=== PATIENT | female | born 1970 | race African-American/Black ===

== ENCOUNTER → 2018-01-16 | Outpatient (CLI) | payer OTHER ==
--- NOTE | 2018-01-16 13:43 | RADIOLOGY REPORT (SQ) ---
EXAM DESCRIPTION: CT CHEST WITH COMPLETED DATE/TIME: 01/16/2018 1:28 pm REASON FOR STUDY: COLON CA C18.2 MALIGNANT NEOPLASM OF ASCENDING COLON COMPARISON: None. TECHNIQUE: CT scan of the chest performed using helical scanning technique with dynamic intravenous contrast injection. Images reviewed with lung, soft tissue and bone windows. Reconstructed coronal and sagittal MPR and MIP images reviewed. All images stored on PACS. All CT scanners at this facility use dose modulation, iterative reconstruction, and/or weight based d osing when appropriate to reduce radiation dose to as low as reasonably achievable (ALARA). [facility]: Dose Right [facility]: CareDose [facility]: Dose Right [facility]: Teradose 4D [facility]: Digital Shadows CONTRAST TYPE AND DOSE: contrast/concentration: Isovue 350.00 mg/ml; Total Contrast Delivered: 80.0 ml; Total Saline Delivered: 55.0 ml RENAL FUNCTION: Creatinine 0.7 RADIATION DOSE: CT Rad equipment meets quality standard of care and radiation dose reduction techniq ues were employed. CTDIvol: 7.2 mGy. DLP: 253 mGy-cm. . LIMITATIONS: None. FINDINGS: LUNGS AND PLEURA: No opacities, nodules, masses. No pneumothorax. No effusions. HILAR AND MEDIASTINAL STRUCTURES: No identified masses or abnormal nodes. HEART AND VASCULAR STRUCTURES: No aneurysm or dissection. No central pulmonary emboli. No pericardi al effusion. HARDWARE: None in the chest. UPPER ABDOMEN: Upper pole left renal cyst measuring just under 6 cm. No worrisome findings. THYROID AND OTHER SOFT TISSUES: No masses. No adenopathy. BONES: No significant finding. OTHER: No other significant finding. IMPRESSION: No acute or suspicious thoracic abnormality. TECHNICAL DOCUMENTATION: JOB ID: [id number] Quality ID # [id number]: Final reports with documentation of one or more dose reduction techniques (e.g., Au tomated exposure control, adjustment of the mA and/or kV according to patient size, use of iterative reconstruction technique) 2010 [employer]- All Rights Reserved Reading location - IP/workstation name: [email or web address]
== END ==
LOC: RAD 13:26
PROVIDERS: ATTEND Internal Medicine Hematology & Oncology
DX: C18.2 Malignant neoplasm of ascending colon (principal)
CPT/HCPCS: 71260

== ENCOUNTER 2018-06-16 22:39 | Emergency (ER) | payer OTHER ==
--- NOTE | 2018-06-16 23:43 | ER Document Report ---
ED General - General Chief Complaint: Palpitations Stated Complaint: SHORTNESS OF BREATH Time Seen by Provider: 06/16/18 23:41 Primary Care Provider: CHRIS REEDER MD [Primary Care Provider] - Follow up as needed REJI ESTRADA MD [ACTIVE STAFF] - Follow up as needed (This is the number the refinery operator helper) Mode of Arrival: Ambulatory Information source: Patient Notes: This is a 47-year-old female with a history of colon cancer stage IIIb status post right hemicolectomy, currently undergoing chemotherapy (Xeloda & Oxaloplatinum) who presents to the emergency room with palpitations and heart racing. Patient states she was in [place] when she had the symptoms. She denies any significant shortness of breath. She denies any calf pain. She denies any chest pain. She denies any fever or chills. TRAVEL OUTSIDE OF THE [place] IN LAST 30 DAYS: No - HPI Onset: Yesterday Onset/Duration: Gradual Quality of pain: No pain Severity: None Pain Level: Denies Associated symptoms: denies: Chest pain, Fever, Shortness of breath Exacerbated by: Denies Relieved by: Denies Similar symptoms previously: No Recently seen / treated by doctor: Yes - Related Data Allergies/Adverse Reactions: Latex, Natural Rubber Allergy (Verified 06/16/18 23:10) shellfish derived Allergy (Verified 06/16/18 23:10) Past Medical History - General Information source: Patient - Social History Smoking Status: Never Smoker Cigarette use (# per day): No Chew tobacco use (# tins/day): No Frequency of alcohol use: None Drug Abuse: None Lives with: Family Family History: None Patient has suicidal ideation: No Patient has homicidal ideation: No - Past Medical History Cardiac Medical History: Reports: None Pulmonary Medical History: Reports: None EENT Medical History: Reports: None Neurological Medical History: Reports: None Endocrine Medical History: Reports: Hx Hypothyroidism, Other - Street of thyroid cancer status post thyroidectomy Renal/ Medical History: Reports: None. Denies: Hx Peritoneal Dialysis Malignancy Medical History: Reports: Hx Colorectal Cancer - Stage IIIb colon cancer GI Medical History: Reports: None Musculoskeletal Medical History: Reports None Skin Medical History: Reports None Psychiatric Medical History: Reports: None Traumatic Medical History: Reports: None Infectious Medical History: Reports: None Past Surgical History: Reports: Hx Abdominal Surgery - R hemicoloectomy, Hx Section - x3, Hx Cholecystectomy, Hx Gynecologic Surgery - UFE, Hx Thyroid Surgery - thyroidectomy Review of Systems - Review of Systems Constitutional: denies: Chills, Fever EENT: No symptoms reported Cardiovascular: Palpitations, Heart racing. denies: Chest pain, Orthopnea, Dyspnea, Syncope Respiratory: No symptoms reported Gastrointestinal: No symptoms reported Genitourinary: No symptoms reported Female Genitourinary: No symptoms reported Musculoskeletal: No symptoms reported Skin: No symptoms reported Hematologic/Lymphatic: No symptoms reported Neurological/Psychological: No symptoms reported Physical Exam - Vital signs Vitals: Temp Pulse Resp BP Pulse Ox 98.1 F 95 16 122/64 100 06/16/18 22:58 06/16/18 22:58 06/16/18 22:58 06/16/18 22:58 06/16/18 22:58 Notes: Physical exam: GENERAL: Vision is alert and oriented x3, no acute distress HEAD: Atraumatic, normocephalic. EYES: Pupils equal round and reactive to light, extraocular movements intact, sclera anicteric, conjunctiva are normal. ENT: TMs normal, nares patent, oropharynx clear without exudates. Moist mucous membranes. NECK: Normal range of motion, supple without obvious mass or JVD. LUNGS: Breath sounds clear to auscultation bilaterally and equal. No wheezes rales or rhonchi. HEART: Regular rate and rhythm without murmurs, rubs or gallops. ABDOMEN: Soft, normoactive bowel sounds. No tenderness to palpation. No guarding, no rebound. No masses appreciated. EXTREMITIES: Normal range of motion, no pitting or edema. No clubbing or cyanosis. NEUROLOGICAL: Cranial nerves II through XII grossly intact. Normal speech, moving all extremities. PSYCH: Normal mood, normal affect. SKIN: Warm, Dry, normal turgor, no rashes or lesions noted. Course - Re-evaluation Re-evalutation: 06/17/18 01:[address] Zepeda: Plan is to leave the levothyroxine dose the way it is, patient will follow-up with Dr. Swift. - Vital Signs Vital signs: Temp Pulse Resp BP Pulse Ox 98.1 F 95 11 L 119/60 100 06/16/18 22:58 06/16/18 22:58 06/17/18 01:01 06/17/18 01:01 06/17/18 01:01 - Laboratory Result Diagrams: 06/16/18 23:57 06/16/18 23:57 Laboratory results interpreted by me: 06/16/18 06/16/18 06/16/18 23:57 23:57 23:57 WBC 3.7 L RBC 3.53 L Hgb 10.9 L Hct 33.7 L RDW 17.7 H Plt Count 110 L Seg Neuts % (Manual) 35 L Monocytes % (Manual) 22 H Abs Neuts (Manual) 1.3 L Glucose 111 H AST 55 H TSH 16.20 H - Diagnostic Test Radiology reviewed: Image reviewed, Reports reviewed - Chest x-ray shows no infiltrates - EKG Interpretation by Me Rate: Normal Rhythm: NSR - EKG shows normal sinus rhythm with a ventricular rate of 101, no acute ST-T wave changes Discharge - Discharge Clinical Impression: Palpitations Condition: Stable Disposition: HOME, SELF-CARE Instructions: Palpitations (Irregular or Rapid Heartrate) ([facility]) Additional Instructions: As we discussed, your chest x-ray looked good tonight. Your EKG also look good. Your electrolytes were in the normal range. I did discuss your white count and platelet count with Dr. Zepeda. I do want you to follow-up with Dr. Rangel. I left the number for with a refinery operator helper affiliated with the hospital (Dr. Estrada): If you continue to have palpitations, they sometimes will have you wear a monitor. Return to the emergency room for chest pain, shortness of breath or any worsening palpitations. Referrals: CHRIS REEDER MD [Primary Care Provider] - Follow up as needed REJI ESTRADA MD [ACTIVE STAFF] - Follow up as needed (This is the number the refinery operator helper)
[2018-06-17 00:10] LABS: HEMATOCRIT 33.7 % (36.0-47.0); HEMOGLOBIN 10.9 g/dL (12.0-15.5); MEAN CORPUSCULAR HEMOGLOBIN 30.9 pg (27.0-33.4); MEAN CORPUSCULAR HGB CONC 32.3 g/dL (32.0-36.0); MEAN CORPUSCULAR VOLUME 96 fl (80-97); PLATELET COUNT 110 10^3/uL (150-450); RED BLOOD COUNT 3.53 10^6/uL (3.72-5.28); RED CELL DISTRIBUTION WIDTH 17.7 % (11.5-14.0); WHITE BLOOD COUNT 3.7 10^3/uL (4.0-10.5)
[2018-06-17 00:25] LABS: ABSOLUTE LYMPHOCYTES# (MANUAL) 1.6 10^3/uL (0.5-4.7); ABSOLUTE MONOCYTES # (MANUAL) 0.8 10^3/uL (0.1-1.4); ABSOLUTE NEUTROPHILS# (MANUAL) 1.3 10^3/uL (1.7-8.2); BASOPHILS % (MANUAL) 0 % (0-2); EOSINOPHILS % (MANUAL) 1 % (0-6); LYMPHOCYTES % (MANUAL) 42 % (13-45); MONOCYTES % (MANUAL) 22 % (3-13); SEGMENTED NEUTROPHILS % (MAN) 35 % (42-78); TOTAL CELLS COUNTED 100
[2018-06-17 00:26] LABS: PLATELET CLUMPS PRESENT
[2018-06-17 00:28] LABS: ANISOCYTOSIS 1+; OVALOCYTES SLIGHT; TARGET CELLS SLIGHT; TEAR DROP CELLS SLIGHT
[2018-06-17 00:30] LABS: ALANINE AMINOTRANSFERASE 35 U/L (9-52); ALBUMIN 3.6 g/dL (3.5-5.0); ALKALINE PHOSPHATASE 93 U/L (38-126); ANION GAP 7 (5-19); ASPARTATE AMINO TRANSFERASE 55 U/L (14-36); BILIRUBIN,DIRECT 0.2 mg/dL (0.0-0.4); BILIRUBIN,TOTAL 0.9 mg/dL (0.2-1.3); BLOOD UREA NITROGEN 8 mg/dL (7-20); CALCIUM 9.5 mg/dL (8.4-10.2); CARBON DIOXIDE 30 mmol/L (22-30); CHLORIDE 107 mmol/L (98-107); GLUCOSE 111 mg/dL (75-110); POTASSIUM 3.6 mmol/L (3.6-5.0); SODIUM 143.9 mmol/L (137-145); TOTAL PROTEIN 6.8 g/dL (6.3-8.2)
--- NOTE | 2018-06-17 00:34 | RADIOLOGY REPORT (SQ) ---
EXAM DESCRIPTION: XR CHEST 1 VIEW COMPLETED DATE/TME: 06/16/2018 23:43 CLINICAL HISTORY: 47 years, Female, palpitations COMPARISON: None. NUMBER OF VIEWS: 1 TECHNIQUE: Portable chest LIMITATIONS: None. FINDINGS: Heart size normal. Left PICC catheter with the tip in the SVC. Lungs clear. No pneumothorax IMPRESSION: No acute cardiopulmonary process copyright 2010 [employer]- All Rights Reserved
[2018-06-17 00:44] LABS: FREE T3 3.12 pg/mL (2.77-5.27); FREE T4 (FREE THYROXINE) 0.87 ng/dL (0.78-2.19)
[2018-06-17 00:58] LABS: THYROID STIMULATING HORMONE 16.2 uIU/mL (0.47-4.68)
[2018-06-17 01:31] VITALS: BP 119/60
--- NOTE | 2018-06-17 23:09 | EKG REPORT ---
SEVERITY:- OTHERWISE NORMAL ECG - SINUS TACHYCARDIA : Confirmed by: Patsy Kitchen 17-Jun-2018 23:08:30
== END 2018-06-17 01:38 | disposition home or self-care (01) ==
LOC: ER 22:39
DX: R00.2 Palpitations (principal); C18.9 Malignant neoplasm of colon, unspecified; E89.0 Postprocedural hypothyroidism; Z79.899 Other long term (current) drug therapy; Z91.040 Latex allergy status
CPT/HCPCS: 36415; 71045; 80053; 83735; 84439; 84443; 84481; 85025; 93005; 93010; 99285

== ENCOUNTER → 2018-07-12 | Outpatient (CLI) | payer OTHER ==
--- NOTE | 2018-07-12 16:33 | RADIOLOGY REPORT (SQ) ---
EXAM DESCRIPTION: CT CHEST WITH COMPLETED DATE/TIME: 07/12/2018 3:09 pm REASON FOR STUDY: C18.2 MALIGNANT NEOPLASM OF ASCENDING COLON C18.2 MALIGNANT NEOPLASM OF ASCENDING COLON COMPARISON: None. TECHNIQUE: CT scan of the chest performed using helical scanning technique with dynamic intravenous contrast injection. Images reviewed with lung, soft tissue and bone windows. Reconstructed coronal and sagittal MPR and MIP images reviewed. All images stored on PACS. All CT scanners at this facility use dose modulation, iterative reconstruction, and/or weight based d osing when appropriate to reduce radiation dose to as low as reasonably achievable (ALARA). [facility]: Dose Right [facility]: CareDose [facility]: Dose Right [facility]: Teradose 4D [facility]: DanceTrippin CONTRAST TYPE AND DOSE: 60 mL Omnipaque 350- low osmolar. RENAL FUNCTION: BUN 7 creatinine 0.65 RADIATION DOSE: . LIMITATIONS: None. FINDINGS: LUNGS AND PLEURA: There is a 10 mm left pleural nodule on image 93 series 6. There appear s to be mild pleural/ parenchymal scarring in the right base posteriorly. HILAR AND MEDIASTINAL STRUCTURES: No identified masses or abnormal nodes. HEART AND VASCULAR STRUCTURES: No aneurysm or dissection. No central pulmonary emboli. No pericardi al effusion. HARDWARE: PICC on the left. UPPER ABDOMEN: See separate report of the CT of the abdomen. THYROID AND OTHER SOFT TISSUES: No masses. No adenopathy. BONES: No significant finding. OTHER: No other significant finding. IMPRESSION: Small left pleural nodule that was not present on prior study. No other significant fin dings in the thorax. TECHNICAL DOCUMENTATION: JOB ID: [id number] Quality ID # [id number]: Final reports with documentation of one or more dose reduction techniques (e.g., Au tomated exposure control, adjustment of the mA and/or kV according to patient size, use of iterative reconstruction technique) 2010 [employer]- All Rights Reserved Reading location - IP/workstation name: [email or web address]
--- NOTE | 2018-07-12 16:40 | RADIOLOGY REPORT (SQ) ---
EXAM DESCRIPTION: CT ABD/PELVIS WITH IV ORAL COMPLETED DATE/TIME: 07/12/2018 3:09 pm REASON FOR STUDY: C18.2 MALIGNANT NEOPLASM OF ASCENDING COLON C18.2 MALIGNANT NEOPLASM OF ASCENDING COLON COMPARISON: None. TECHNIQUE: CT scan of the abdomen and pelvis performed using helical scanning technique with dynamic intravenous contrast injection. c Oral contrast. Images reviewed with lung, soft tissue, and bone wi ndows. Reconstructed coronal and sagittal MPR images reviewed. Delayed images for evaluation of the u rinary system also acquired. All images stored on PACS. All CT scanners at this facility use dose modulation, iterative reconstruction, and/or weight based d osing when appropriate to reduce radiation dose to as low as reasonably achievable (ALARA). [facility]: Dose Right [facility]: CareDose [facility]: Dose Right [facility]: Teradose 4D [facility]: [employer]aps CONTRAST TYPE AND DOSE: contrast/concentration: Isovue 350.00 mg/ml; Total Contrast Delivered: 60.0 ml; Total Saline Delivered: 71.0 ml RENAL FUNCTION: BUN 7 creatinine 0.65 RADIATION DOSE: CT Rad equipment meets quality standard of care and radiation dose reduction techniq ues were employed. CTDIvol: 7.2 - 14.0 mGy. DLP: 1651 mGy-cm.. LIMITATIONS: None. FINDINGS: LOWER CHEST: No significant findings. No nodules or infiltrates. LIVER: Normal size. No masses. No dilated ducts. SPLEEN: Normal size. No focal lesions. PANCREAS: No masses. No significant calcifications. No adjacent inflammation or peripancreatic fluid collections. Pancreatic duct not dilated. GALLBLADDER: Surgically absent. ADRENAL GLANDS: No significant masses or asymmetry. RIGHT KIDNEY AND URETER: No solid masses. No significant calcifications. No hydronephrosis or hyd roureter. LEFT KIDNEY AND URETER: No solid masses. There is a 6 cm cyst. No significant calcifications. No hydronephrosis or hydroureter. AORTA AND VESSELS: No aneurysm. No dissection. Renal arteries, SMA, celiac without stenosis. RETROPERITONEUM: No retroperitoneal adenopathy, hemorrhage or masses. BOWEL AND PERITONEAL CAVITY: No masses or inflammatory changes. No free fluid or peritoneal masses. APPENDIX: Not identified. PELVIS: Calcified uterine fibroid. Urinary bladder is normal. ABDOMINAL WALL: No masses. No hernias. BONES: No significant or acute findings. OTHER: No other significant finding. IMPRESSION: There is no acute finding in the abdomen or pelvis. No evidence of metastatic disease. Calcified uterine fibroid. Left renal cyst. TECHNICAL DOCUMENTATION: JOB ID: [id number] Quality ID # [id number]: Final reports with documentation of one or more dose reduction techniques (e.g., Au tomated exposure control, adjustment of the mA and/or kV according to patient size, use of iterative reconstruction technique) 2010 [employer]- All Rights Reserved Reading location - IP/workstation name: [email or web address]
== END ==
LOC: RAD 14:29
PROVIDERS: ATTEND Internal Medicine Hematology & Oncology
DX: C18.2 Malignant neoplasm of ascending colon (principal); D25.9 Leiomyoma of uterus, unspecified; N28.1 Cyst of kidney, acquired
CPT/HCPCS: 71260; 74177

== ENCOUNTER → 2018-11-02 | Outpatient (CLI) | payer OTHER ==
--- NOTE | 2018-11-02 11:04 | RADIOLOGY REPORT (SQ) ---
EXAM DESCRIPTION: CT ABD/PELVIS WITH IV ORAL; CT CHEST WITH COMPLETED DATE/TIME: 11/02/2018 10:18 am REASON FOR STUDY: C18.2 MALIGNANT NEOPLASM OF ASCENDING COLON C18.2 MALIGNANT NEOPLASM OF ASCENDING COLON CONTRAST TYPE AND DOSE: contrast/concentration: Isovue 350.00 mg/ml; Total Contrast Delivered: 88.0 ml; Total Saline Delivered: 71.0 ml RENAL FUNCTION: None required. The patient is less than 50 years old. COMPARISON: 07/12/2018 TECHNIQUE: CT scan of the chest performed using helical scanning technique with dynamic intravenous contrast injection. Images reviewed with lung, soft tissue and bone windows. Reconstructed coronal a nd sagittal MPR images reviewed. All images stored on PACS. All CT scanners at this facility use dose modulation, iterative reconstruction, and/or weight based d osing when appropriate to reduce radiation dose to as low as reasonably achievable (ALARA). [facility]: Dose Right [facility]: CareDose [facility]: Dose Right [facility]: Teradose 4D [facility]: Smart [employer] RADIATION DOSE: CT Rad equipment meets quality standard of care and radiation dose reduction techniq ues were employed. CTDIvol: 5.1 - 8.8 mGy. DLP: 1099 mGy-cm. . LIMITATIONS: None. FINDINGS: AXILLAE: No adenopathy. CHEST WALL: No masses. No subcutaneous air. LUNGS: No nodules or masses. No pneumothorax. No infiltrates. Subpleural nodule previously describ ed is no longer present. PLEURA: No effusions. No calcifications. THYROID: No masses or significant asymmetry. HILAR AND MEDIASTINAL STRUCTURES: No identified masses or abnormal nodes. AORTA AND GREAT VESSELS: No aneurysm. No dissection. PULMONARY ARTERIES: No identified pulmonary emboli. Study not optimized for the pulmonary arteries. HEART: No pericardial effusion. HARDWARE AND LIFELINES: None. BONES: No significant finding. OTHER: No other significant finding. IMPRESSION: NORMAL CT OF THE CHEST WITH IV CONTRAST. COMPARISON: None. RADIATION DOSE: CT Rad equipment meets quality standard of care and radiation dose reduction techniq ues were employed. CTDIvol: 5.1 - 8.8 mGy. DLP: 1099 mGy-cm. mGy. TECHNIQUE: CT scan of the abdomen and pelvis performed with intravenous and oral contrast using emma don scanning technique with dynamic intravenous contrast injection. Images reviewed with lung, soft tissue and bone windows. Reconstructed coronal and sagittal MPR images reviewed. Delayed images for evaluation of the urinary system also acquired and evaluated. All images stored on PACS. All CT scanners at this facility use dose modulation, iterative reconstruction, and/or weight based d osing when appropriate to reduce radiation dose to as low as reasonably achievable (ALARA). [facility]: Dose Right [facility]: SureCare [facility]: Dose Right [facility]: Teradose 4D [facility]: [employer] FINDINGS: LIVER: Normal size. No masses. No dilated ducts. SPLEEN: Normal size. No focal lesions. PANCREAS: No masses. No significant calcifications. No adjacent inflammation or peripancreatic flui d collections. Pancreatic duct not dilated. GALLBLADDER: Surgically absent. ADRENAL GLANDS: No significant masses or asymmetry. RIGHT KIDNEY AND URETER: No solid masses. No significant calcifications. No hydronephrosis or hyd roureter. LEFT KIDNEY AND URETER: No solid masses. Stable large left renal cyst. No significant calcificatio ns. No hydronephrosis or hydroureter. AORTA AND VESSELS: No aneurysm. No dissection. Renal arteries, SMA, celiac without stenosis. RETROPERITONEUM: No retroperitoneal adenopathy, hemorrhage or masses. LARGE AND SMALL BOWEL: No dilatation. No masses. No wall thickening. APPENDIX: Not visualized. ABDOMINAL WALL: Small umbilical hernia containing omental fat only. PERITONEAL CAVITY: No free air. No free fluid. No peritoneal implants or masses. PELVIS: Calcified uterine fibroid is again noted. BONES: No significant or acute findings. OTHER: No other significant finding. IMPRESSION: No acute findings in the abdomen or pelvis. TECHNICAL DOCUMENTATION: JOB ID: [id number] Quality ID # [id number]: Final reports with documentation of one or more dose reduction techniques (e.g., Au tomated exposure control, adjustment of the mA and/or kV according to patient size, use of iterative reconstruction technique) 2010 [employer]- All Rights Reserved Reading location - IP/workstation name: [email or web address]
== END ==
LOC: RAD 09:20
PROVIDERS: ATTEND Nurse Practitioner Family
DX: C18.2 Malignant neoplasm of ascending colon (principal); D25.9 Leiomyoma of uterus, unspecified
CPT/HCPCS: 71260; 74177

== ENCOUNTER 2018-11-05 11:22 | Emergency (ER) | payer OTHER ==
--- NOTE | 2018-11-05 11:39 | ER Document Report ---
ED Medical Screen (RME) - General Stated Complaint: VAGINAL BLEEDING Time Seen by Provider: 11/05/18 11:32 Primary Care Provider: FERDINAND GAXIOLA FNP-C [Primary Care Provider] - Follow up as needed Notes: 47-year-old female with history of colon cancer status post chemotherapy in June 2018 presents to the emergency department abnormal heavy vaginal bleeding since last night. She states she has been soaking through more than 2 pads an hour and passing clots and this is persisted up until her arrival here. She called her bilingual manager who recommended that she come to the emergency department for evaluation. Patient denies dizziness or lightheadedness, denies weakness, denies nausea or vomiting, denies acute shortness of breath or chest pain. Exam: Well-appearing in no acute distress, lungs are clear to auscultation in all maurer, regular cardiac rate and rhythm I have greeted and performed a rapid initial assessment of this patient. A comprehensive ED assessment and evaluation of the patient, analysis of test results and completion of medical decision making process will be conducted by an additional ED providers. TRAVEL OUTSIDE OF THE [place] IN LAST 30 DAYS: No - Related Data Allergies/Adverse Reactions: Latex, Natural Rubber Allergy (Verified 06/16/18 23:10) shellfish derived Allergy (Verified 06/16/18 23:10) Past Medical History Endocrine Medical History: Reports: Hx Hypothyroidism Renal/ Medical History: Denies: Hx Peritoneal Dialysis Malignancy Medical History: Reports: Hx Colorectal Cancer - Stage IIIb colon cancer Past Surgical History: Reports: Hx Abdominal Surgery - R hemicoloectomy, Hx Section - x3, Hx Cholecystectomy, Hx Gynecologic Surgery - UFE, Hx Thyroid Surgery - thyroidectomy Doctor's Discharge - Discharge Referrals: FERDINAND GAXIOLA FNP-C [Primary Care Provider] - Follow up as needed
[2018-11-05 12:24] LABS: ABSOLUTE EOSINOPHILS # (AUTO) 0.1 10^3/uL (0.0-0.6); ABSOLUTE LYMPHOCYTES (AUTO) 1.6 10^3/uL (0.5-4.7); ABSOLUTE MONOCYTES (AUTO) 0.4 10^3/uL (0.1-1.4); ABSOLUTE NEUT (AUTO) 1.5 10^3/uL (1.7-8.2); BASOPHILS % (AUTO) 1.1 % (0-2); EOSINOPHILS % (AUTO) 3.2 % (0-6); HEMATOCRIT 36.2 % (36.0-47.0); HEMOGLOBIN 11.8 g/dL (12.0-15.5); LYMPHOCYTES % (AUTO) 43.4 % (13-45); MEAN CORPUSCULAR HEMOGLOBIN 28.4 pg (27.0-33.4); MEAN CORPUSCULAR HGB CONC 32.7 g/dL (32.0-36.0); MEAN CORPUSCULAR VOLUME 87 fl (80-97); MONOCYTES % (AUTO) 11.7 % (3-13); PLATELET COUNT 129 10^3/uL (150-450); RED BLOOD COUNT 4.17 10^6/uL (3.72-5.28); RED CELL DISTRIBUTION WIDTH 18.4 % (11.5-14.0); SEGMENTED NEUTROPHILS % (AUTO) 40.6 % (42-78); TOTAL CELLS COUNTED % (AUTO) 100 %; WHITE BLOOD COUNT 3.8 10^3/uL (4.0-10.5)
[2018-11-05 12:35] LABS: APPEARANCE,URINE SLIGHTLY-CLOUDY; BILIRUBIN,URINE NEGATIVE (NEGATIVE); COLOR,URINE YELLOW; GLUCOSE, URINE NEGATIVE (NEGATIVE); KETONES,URINE NEGATIVE (NEGATIVE); LEUKOCYTE ESTERASE,URINE NEGATIVE (NEGATIVE); NITRITE,URINE NEGATIVE (NEGATIVE); PROTEIN,URINE 30 mg/dL (NEGATIVE); URINE SPECIFIC GRAVITY 1.018; UROBILINOGEN,URINE NEGATIVE mg/dL (<2.0)
--- NOTE | 2018-11-05 12:47 | ER Document Report ---
ED General - General Chief Complaint: Vaginal Bleeding Stated Complaint: VAGINAL BLEEDING Time Seen by Provider: 11/05/18 11:32 Primary Care Provider: FERDINAND GAXIOLA FNP-C [Primary Care Provider] - Follow up as needed TRAVEL OUTSIDE OF THE [place] IN LAST 30 DAYS: No - HPI Notes: Patient is a 47-year-old female with a history of colon cancer status post chemotherapy in June 2018 believed to be in remission now who presents per the direction of QUALITY COORDINATOR for further evaluation of abnormal heavy vaginal bleeding that began last evening. Patient states that she has been going through 2 pads per hour on approximation and has had some clots that she has been passing. Patient states that she otherwise feels well. She has been able to eat and drink without difficulty. She is urinating normally and having normal bowel movements. No recent illness. No other vaginal odor or discharge. No concern of STD or STI. Denies any dizziness, lightheadedness, headache, fever, neck p ain, URI, sore throat, chest pain, palpitations, syncope, cough, shortness of breath, wheeze, dyspnea, abdominal pain, nausea/vomiting/diarrhea, urinary retention, dysuria, hematuria, loss of control of bowel or bladder, numbness/tingling, saddle anesthesia, muscle paralysis/weakness, or rash. - Related Data Allergies/Adverse Reactions: Latex, Natural Rubber Allergy (Verified 06/16/18 23:10) shellfish derived Allergy (Verified 06/16/18 23:10) Past Medical History - Social History Smoking Status: Unknown if Ever Smoked Family History: None Patient has suicidal ideation: No Patient has homicidal ideation: No Endocrine Medical History: Reports: Hx Hypothyroidism Renal/ Medical History: Denies: Hx Peritoneal Dialysis Malignancy Medical History: Reports: Hx Colorectal Cancer - Stage IIIb colon cancer Past Surgical History: Reports: Hx Abdominal Surgery - R hemicoloectomy, Hx Section - x3, Hx Cholecystectomy, Hx Gynecologic Surgery - UFE, Hx Thyroid Surgery - thyroidectomy Review of Systems - Review of Systems -: Yes All other systems reviewed and negative Physical Exam - Vital signs Vitals: Temp Pulse Resp BP Pulse Ox 98.1 F 78 16 132/83 H 100 11/05/18 11:33 11/05/18 11:33 11/05/18 11:33 11/05/18 11:33 11/05/18 11:33 - Notes Notes: PHYSICAL EXAMINATION: GENERAL: Well-appearing, well-nourished and in no acute distress. HEAD: Atraumatic, normocephalic. EYES: Pupils equal round and reactive to light, extraocular movements intact, sclera anicteric, conjunctiva are normal. ENT: Nares patent and without discharge. oropharynx clear without exudates. No tonsilar hypertrophy or erythema. Moist mucous membranes. NECK: Normal range of motion, supple without lymphadenopathy LUNGS: Breath sounds clear to auscultation bilaterally and equal. No wheezes rales or rhonchi. HEART: Regular rate and rhythm without murmurs, rubs, gallops. ABDOMEN: Soft, nontender, nondistended abdomen. No guarding, no rebound. normal bowel sounds present. No CVA tenderness bilaterally. Musculoskeletal: FROM to passive/active. Strength 5+/5. Extremities: No cyanosis, clubbing, or edema b/l. Peripheral pulses 2+. Capillary refill less than 3 seconds. NEUROLOGICAL: Cranial nerves grossly intact. Normal speech, normal gait. PSYCH: Normal mood, normal affect. SKIN: Warm, Dry, normal turgor, no rashes or lesions noted. Course - Re-evaluation Re-evalutation: 11/05/18 14:50 Dr. Covarrubias in agreement with dispo/plan: I did speak with her OBGYN's nurse at [facility] [place] (Dr. Douglass in surgery today) and they would like her to come to their office first thing tomorrow morning for evaluation (830am). Patient is an afebrile, well-hydrated, 47-year-old female who presents to the ED with dysfunctional uterine bleeding. Vitals are acceptable without any significant tachycardia, tachypnea, hypotension, or hypoxia. PE is otherwise unremarkable. Patient's abdomen is soft and nontender. Hemoglobin hematocrit stable with hemoglobin at 11.8 which is mildly low. CBC, CMP, urinalysis, and hCG are unremarkable for any acute pathology. Patient is nontoxic-appearing is tolerating p.o. without any difficulties. Transvaginal ultrasound was also unremarkable for any acute pathology aside from already known uterine fibroid. No other labs or imaging warranted at this time based on H&P. Low suspicion/risk for severe acute blood loss anemia requiring blood transfusion, acute appendicitis, bowel obstruction, acute cholecystitis, acute cholangitis, perforated diverticulitis, incarcerated hernia, pancreatitis, perforated ulcer, peritonitis, sepsis, pelvic inflammatory disease, ectopic , tubo- ovarian abscess, ovarian torsion, or other systemic emergent condition at this time. Patient is aware that her condition can change from initial presentation and she needs to monitor symptoms closely and seek medical attention if any acute changes. Conservative measures otherwise for symptoms. Recheck with your OBGYN tomorrow morning at 8:30 AM. Return to the ED with any worsen ing/concerning symptoms otherwise as reviewed in discharge. Patient is in agreement. - Vital Signs Vital signs: Temp Pulse Resp BP Pulse Ox 98.1 F 78 16 132/83 H 100 11/05/18 11:33 11/05/18 11:33 11/05/18 11:33 11/05/18 11:33 11/05/18 11:33 - Laboratory Result Diagrams: 11/05/18 11:41 11/05/18 12:51 Laboratory results interpreted by me: 11/05/18 11/05/18 11/05/18 11:41 11:41 12:51 WBC 3.8 L Hgb 11.8 L RDW 18.4 H Plt Count 129 L Absolute Neuts (auto) 1.5 L Seg Neutrophils % 40.6 L Potassium 3.5 L BUN 6 L AST 39 H Urine Protein 30 H Urine Blood LARGE H Discharge - Discharge Clinical Impression: Dysfunctional uterine bleeding Condition: Stable Disposition: HOME, SELF-CARE Additional Instructions: Maintain fluid intake Proper hygienic technique Keep the skin clean Tylenol/ibuprofen as needed Recheck with your QUALITY COORDINATOR first thing tomorrow morning at 8:30 AM F/u with your PCM in 3-5 days for a recheck or as needed Return to the ED with any development of WISE/fever, dizziness, trouble with vision, eye redness, worsening pain, urethral discharge, urinary retention, blood in the urine, flank pain, abdominal pain, n/v, Chest Pain, shortness of breath, joint pains, trouble breathing, or any other worsening/concerning symptoms as needed otherwise. Forms: Elevated Blood Pressure Referrals: FERDINAND GAXIOLA FNP-C [Primary Care Provider] - Follow up as needed [facility] [Other] - 11/06/18 8:30 am
[2018-11-05 13:20] LABS: ALBUMIN 3.9 g/dL (3.5-5.0); ALKALINE PHOSPHATASE 124 U/L (38-126); ANION GAP 8 (5-19); ASPARTATE AMINO TRANSFERASE 39 U/L (14-36); BILIRUBIN,DIRECT 0.1 mg/dL (0.0-0.4); BLOOD UREA NITROGEN 6 mg/dL (7-20); CALCIUM 9.3 mg/dL (8.4-10.2); CARBON DIOXIDE 27 mmol/L (22-30); CHLORIDE 103 mmol/L (98-107); GLUCOSE 85 mg/dL (75-110); POTASSIUM 3.5 mmol/L (3.6-5.0)
--- NOTE | 2018-11-05 14:24 | RADIOLOGY REPORT (SQ) ---
EXAM DESCRIPTION: U/S NON-OB PELVIS TV W/O DOP COMPLETED DATE/TIME: 11/05/2018 2:07 pm REASON FOR STUDY: abnormal heavy vaginal bleeding COMPARISON: None. TECHNIQUE: Dynamic and static grayscale images acquired of the pelvis via transvaginal approach and recorded on PACS. Additional selected color Doppler and spectral images recorded. LIMITATIONS: None. FINDINGS: UTERUS: Contour normal. 3.9 cm hypoechoic nodule with peripheral calcification. ENDOMETRIAL STRIPE: No focal or generalized thickening. No masses. CERVIX: No nabothian cysts. RIGHT OVARY AND DOPPLER: Ovary not visualized. LEFT OVARY AND DOPPLER: Ovary not visualized. FREE FLUID: None noted. OTHER: No other significant finding. MEASUREMENTS: UTERUS: 6.2 x 6.6 x 10.3 cm. ENDOMETRIAL STRIPE: 11 mm. RIGHT OVARY: Not visualized. LEFT OVARY: Not visualized. IMPRESSION: CALCIFIED UTERINE FIBROID. OVARIES NOT VISUALIZED DUE TO OVERLYING BOWEL GAS. NO OTHER SIGNIFICANT FINDING. TECHNICAL DOCUMENTATION: JOB ID: [id number] [employer]- All Rights Reserved Reading location - IP/workstation name: [email or web address]
[2018-11-05 15:13] VITALS: BP 135/83
== END 2018-11-05 15:17 | disposition home or self-care (01) ==
LOC: ER 11:22
DX: N93.8 Other specified abnormal uterine and vaginal bleeding (principal); Z85.038 Personal history of other malignant neoplasm of large intestine; Z79.899 Other long term (current) drug therapy
CPT/HCPCS: 36415; 76830; 80053; 81001; 84703; 85025; 99284

== ENCOUNTER → 2019-11-01 | Outpatient (CLI) | payer OTHER ==
--- NOTE | 2019-11-01 13:15 | RADIOLOGY REPORT (SQ) ---
EXAM DESCRIPTION: CT CHEST WITH IMAGES COMPLETED DATE/TIME: 11/01/2019 11:25 am REASON FOR STUDY: C18.2 MALIGNANT NEOPLASM OF ASCENDING COLON C18.2 MALIGNANT NEOPLASM OF ASCENDING COLON COMPARISON: 07/12/2018 TECHNIQUE: CT scan of the chest performed using helical scanning technique with dynamic intravenous contrast injection. Images reviewed with lung, soft tissue and bone windows. Reconstructed coronal and sagittal MPR and MIP images reviewed. All images stored on PACS. All CT scanners at this facility use dose modulation, iterative reconstruction, and/or weight based d osing when appropriate to reduce radiation dose to as low as reasonably achievable (ALARA). [facility]: Dose Right [facility]: CareDose [facility]: Dose Right [facility]: Teradose 4D [facility]: [email or web address] CONTRAST TYPE AND DOSE: 96 mL Omnipaque 350- low osmolar. RENAL FUNCTION: None required. The patient is less than 50 years old. RADIATION DOSE: . LIMITATIONS: None. FINDINGS: LUNGS AND PLEURA: No nodules. No infiltrates or effusion. HILAR AND MEDIASTINAL STRUCTURES: No identified masses or abnormal nodes. HEART AND VASCULAR STRUCTURES: No aneurysm or dissection. No central pulmonary emboli. No pericardi al effusion. HARDWARE: None in the chest. UPPER ABDOMEN: See separate report of the CT of the abdomen. THYROID AND OTHER SOFT TISSUES: No masses. No adenopathy. BONES: No significant finding. OTHER: No other significant finding. IMPRESSION: NORMAL CT OF THE CHEST WITH IV CONTRAST. TECHNICAL DOCUMENTATION: JOB ID: [id number] Quality ID # 436: Final reports with documentation of one or more dose reduction techniques (e.g., Au tomated exposure control, adjustment of the mA and/or kV according to patient size, use of iterative reconstruction technique) 2010 [employer]- All Rights Reserved Reading location - IP/workstation name: [email or web address]
--- NOTE | 2019-11-01 13:31 | RADIOLOGY REPORT (SQ) ---
EXAM DESCRIPTION: CT ABD/PELVIS WITH IV ORAL IMAGES COMPLETED DATE/TIME: 11/01/2019 11:25 am REASON FOR STUDY: C18.2 MALIGNANT NEOPLASM OF ASCENDING COLON C18.2 MALIGNANT NEOPLASM OF ASCENDING COLON COMPARISON: 07/12/2018 TECHNIQUE: CT scan of the abdomen and pelvis performed using helical scanning technique with dynamic intravenous contrast injection. Oral contrast. Images reviewed with lung, soft tissue, and bone win dows. Reconstructed coronal and sagittal MPR images reviewed. Delayed images for evaluation of the ur inary system also acquired. All images stored on PACS. All CT scanners at this facility use dose modulation, iterative reconstruction, and/or weight based d osing when appropriate to reduce radiation dose to as low as reasonably achievable (ALARA). [facility]: Dose Right [facility]: CareDose [facility]: Dose Right [facility]: Teradose 4D [facility]: [employer] CONTRAST TYPE AND DOSE: contrast/concentration: Isovue 350.00 mmol/ml; Total Contrast Delivered: 52. 6 ml; Total Saline Delivered: 49.7 ml RENAL FUNCTION: None required. The patient is less than 50 years old. RADIATION DOSE: CT Rad equipment meets quality standard of care and radiation dose reduction techniq ues were employed. CTDIvol: 7.8 - 15.4 mGy. DLP: 1814 mGy-cm.. LIMITATIONS: None. FINDINGS: LOWER CHEST: See separate report of the CT of the chest. LIVER: There is a 15 mm slightly ill-defined low-density lesion in the right lobe of the liver that i s not present on the prior study. See image 14 series 3 and image 3 series 10. SPLEEN: Normal size. No focal lesions. PANCREAS: No masses. No significant calcifications. No adjacent inflammation or peripancreatic fluid collections. Pancreatic duct not dilated. GALLBLADDER: No identified stones by CT criteria. No inflammatory changes to suggest cholecystitis. ADRENAL GLANDS: No significant masses or asymmetry. RIGHT KIDNEY AND URETER: No solid masses. No significant calcifications. No hydronephrosis or hyd roureter. LEFT KIDNEY AND URETER: Prominent upper pole cyst. No solid masses. No significant calcifications. No hydronephrosis or hydroureter. AORTA AND VESSELS: No aneurysm. No dissection. Renal arteries, SMA, celiac without stenosis. RETROPERITONEUM: No retroperitoneal adenopathy, hemorrhage or masses. BOWEL AND PERITONEAL CAVITY: No masses or inflammatory changes. No free fluid or peritoneal masses. APPENDIX: Not identified. PELVIS: Urinary bladder is normal. There is calcified uterine fibroid once again seen. ABDOMINAL WALL: No masses. No hernias. BONES: No significant or acute findings. OTHER: No other significant finding. IMPRESSION: There is a new, somewhat ill-defined low-density lesion in the right lobe of the liver. Cannot exclude a metastatic lesion. There is no other significant interval change. TECHNICAL DOCUMENTATION: JOB ID: [id number] Quality ID # 436: Final reports with documentation of one or more dose reduction techniques (e.g., Au tomated exposure control, adjustment of the mA and/or kV according to patient size, use of iterative reconstruction technique) 2010 [employer]- All Rights Reserved Reading location - IP/workstation name: [email or web address]
== END ==
LOC: RAD 10:26
PROVIDERS: ATTEND Physician Assistant Medical
DX: C18.2 Malignant neoplasm of ascending colon (principal)
CPT/HCPCS: 71260; 74177

== ENCOUNTER → 2019-11-19 | Outpatient (CLI) | payer OTHER ==
--- NOTE | 2019-11-21 12:47 | RADIOLOGY REPORT (SQ) ---
EXAM DESCRIPTION: PET CT SKULL/THIGH IMAGES COMPLETED DATE/TIME: 11/19/2019 2:44 pm REASON FOR STUDY: C18.2 MALIGNANT NEOPLASM OF ASCENDING COLON C18.2 MALIGNANT NEOPLASM OF ASCENDING COLON COMPARISON: CT chest abdomen pelvis 11/01/2019. RADIONUCLIDE AND DOSE: 8.6 mCi F18 FDG The route of agent administration: Intravenous FASTING BLOOD SUGAR: 92 mg/dl CONTRAST TYPE AND DOSE: No CT contrast given. TECHNIQUE: Blood glucose level was verified. Above dose of FDG was injected intravenously. 2-D seg mented attenuation correction images were obtained from the base of the skull to the midthighs. Nonc ontrast CT images were obtained for attenuation correction and fusion with emission images. CT image s were performed without oral or intravenous contrast and are not sensitive for parenchymal lesions. A series of overlapping emission PET images were obtained. Images reviewed and manipulated at [facility] work station by the radiologist. Images stored on PACS. LIMITATIONS: None. FINDINGS: HEAD AND NECK: No areas of abnormal metabolic activity in the soft tissues of the head and neck. CHEST: No areas of abnormal metabolic activity in the chest. ABDOMEN AND PELVIS: Abnormal uptake 9.3 SUV within recently described lesion in segment 7 of the live r. PROXIMAL LOWER EXTREMITIES: No areas of abnormal metabolic activity in the soft tissues of the lower extremities. BONES: No abnormal metabolic activity in the visualized skeleton. ADDITIONAL CT FINDINGS: Right hemicolectomy. He was fibroid. OTHER: Blood pool 2.1 SUV. Liver background 2.5 SUV. IMPRESSION: Solitary liver metastasis. COMMENT: Potentially amenable to CT-guided biopsy. TECHNICAL DOCUMENTATION: JOB ID: [id number] 2010 [employer]- All Rights Reserved Reading location - IP/workstation name: [email or web address]
== END ==
LOC: RAD 11:20
PROVIDERS: ATTEND Internal Medicine Hematology & Oncology
DX: C18.2 Malignant neoplasm of ascending colon (principal); C78.7 Secondary malignant neoplasm of liver and intrahepatic bile duct
CPT/HCPCS: 78815; A9552

== ENCOUNTER 2019-12-25 09:25 | Day surgery (SDC) | payer OTHER ==
[2019-12-25 10:40] LABS: HEMATOCRIT 40.5 % (36.0-47.0); HEMOGLOBIN 13.4 g/dL (12.0-15.5); MEAN CORPUSCULAR HEMOGLOBIN 29.6 pg (27.0-33.4); MEAN CORPUSCULAR HGB CONC 33.1 g/dL (32.0-36.0); MEAN CORPUSCULAR VOLUME 89 fl (80-97); PLATELET COUNT 150 10^3/uL (150-450); RED BLOOD COUNT 4.53 10^6/uL (3.72-5.28); WHITE BLOOD COUNT 4.5 10^3/uL (4.0-10.5)
[2019-12-25 10:59] LABS: BLOOD UREA NITROGEN 7 mg/dL (7-20)
[2019-12-25 11:09] LABS: INTERNATIONAL RATION (INR) 0.91; PROTHROMBIN TIME 12.5 SEC (11.4-15.4)
[2019-12-25 11:10] LABS: PARTIAL THROMBOPLASTIN TIME 27.7 SEC (23.5-35.8)
[2019-12-25] MEDS ORDERED: FENTANYL CITRATE INJ/PF 100 MCG/2 ML AMPUL ONE (11:47)
[2019-12-25] MEDS ORDERED: ONDANSETRON HCL INJ/PF 4 MG/2 ML SDV ONE (11:47)
[2019-12-25] MEDS ORDERED: MIDAZOLAM 2 MG/2 ML INJ ONE (11:47)
--- NOTE | 2019-12-25 13:17 | RADIOLOGY REPORT (SQ) ---
EXAM DESCRIPTION: CT BIOPSY LIVER; CT NEEDLE PLACEMENT IMAGES COMPLETED DATE/TIME: 12/25/2019 12:56 pm; 12/25/2019 12:52 pm REASON FOR STUDY: HEPATOMEGALY R16.0 HEPATOMEGALY, NOT ELSEWHERE CLASSIFIED COMPARISON: PET-CT dated 11/19/2019 CT abdomen dated 11/01/2019 TECHNIQUE: After obtaining informed consent and explaining the risks and benefits of conscious sedat ion,the patient agreed to the procedure. The patient was brought to the CT suite and was placed supin e on the CT gurney. The patient was prepped and draped in the usual sterile fashion. Axial images we re obtained for targeting of theright hepatic lobe lesion. An appropriate access site was selected. I V conscious sedation was administered and physician direction by the registered nurse using 4.0 dahiana grams of Versed and 150 micrograms of fentanyl. Physiologic monitoring was provided before, during, a nd after sedation. The total sedation time was 45 minutes. Documentation face to face time, the performing proceduralist, spent monitoring the patient: [address] of the liver was performed to localize an approach for the targeted liver biopsy. A percutaneous site was marked. Time out was performed. After skin prep and local lidocaine for skin and deep tissue anesthesia, a coaxial biopsy needle sys tem was used to obtain several cores of tissue from the hepatic mass. These were submitted to the la b in formalin. No immediate postprocedure complications. Total of 43.[address] fluoro was used. 84 CT Fluoroscopic images were obtained and saved to PACS. All CT scanners at this facility use dose modulation, iterative reconstruction, and/or weight based d osing when appropriate to reduce radiation dose to as low as reasonably achievable (ALARA). [facility]: Dose Right [facility]: CareDose [facility]: Dose Right [facility]: Teradose 4D [facility]: [employer] RADIATION DOSE: CT Rad equipment meets quality standard of care and radiation dose reduction techniq ues were employed. CTDIvol: 4.8 - 21.0 mGy. DLP: 1196 mGy-cm. mGy. LIMITATIONS: None. FINDINGS: CT guided liver biopsy as detailed above. IMPRESSION: CT GUIDED TARGETED LIVER BIOPSY PERFORMED ABOVE. PATHOLOGY PENDING. NO IMMEDIATE C OMPLICATIONS. COMMENT: Patient medication list reviewed:Yes- Quality ID# [id number]:Eligible professional attests to docu menting in the medical record they obtained, updated, or reviewed the patient's current medications.. Quality ID 145: Final reports for procedures using fluoroscopy that document radiation exposure kevin christel, or exposure time and number of fluorographic images (if radiation exposure indices are not avail able) TECHNICAL DOCUMENTATION: JOB ID: [id number] Quality ID # 436: Final reports with documentation of one or more dose reduction techniques (e.g., A utomated exposure control, adjustment of the mA and/or kV according to patient size, use of iterative reconstruction technique) 2010 [employer]- All Rights Reserved Reading location - IP/workstation name: [email or web address]
[2019-12-25 17:42] VITALS: BP 118/55
--- OUTSIDE RECORDS SUMMARY | 2019-12-26 18:22 | XMS REPORT ---
:1970 Author Organization [facility] Address [address] [place] [address] Care Team Providers Name Role Phone Thor Kulkarni Primary Care Physician Unavailable Fran Minaya Attending Clinician Unavailable Josee Attending Clinician Unavailable Filippo METCALF Unavailable Unavailable Rafat GOMEZ, H Unavailable Shakila MARQUEZ Unavailable Unavailable Allergies, Adverse Reactions, Alerts Allergy Allergy Status Severity Reaction(s) Onset Inactive Treating C omments Name Type Date Date Clinician Iodinated Allergy to Active Moderate Facial Contrast- substance swelling Oral and Iv Dye Latex Allergy to Active substance Morphine Allergy to Active Severe Decreased substance blood pressure Iodinated Allergy to Active Swollen-lips Contrast or Drug and IV (Finding) Latex [id number] Active Morphine Allergy to Active Sulfate Drug (Ingredient (Finding) (s): morphine) synthroid Allergy to Active Skin Drug Rashes/Hives (Finding) Shellfish Shellfish Active Medications Ordered Filled Start Stop Current Ordering Indication Dosage Frequency Signature Comments Components Medication Medication Date Date Medication? Clinician (SIG) Name Name Feraheme 2018-02 No 510mg Feraheme 1-04 00:00: 00 Sodium 2018- No 100mL Sodium Chloride 1-04 Chloride 00:00: 00 Feraheme 2018-02 2019- No 510mg Feraheme 0-28 -04 00:00: 00:00 00 :00 Sodium 2018- 2019- No 100mL Sodium Chloride 0-28 11-04 Chloride 00:00: 00:00 00 :00 Flagyl 2018- 2019- No 0-18 01-22 00:00: 13:51 00 :14 Cymbalta 2018-0 2019- No 1 10-23 00:00: 13:51 00 :14 Capsaicin 2018- 2020- No 8-16 08-12 00:00: 13:46 00 :30 Gabapentin 2019-0 2019- No 7-26 09-10 00:00: 13:31 00 :10 Palonosetro 2019-0 No .25mg Palonosetr n HCl 5-16 on HCl 00:00: 00 Dexamethaso 2019-0 No 10mg Dexamethas ne Sodium 5-16 one Sodium Phosphate 00:00: Phosphate 00 Dextrose 2019-0 No 50mL Dextrose 5-16 00:00: 00 Oxaliplatin 2019-0 No 248mg Oxaliplati 5-16 n 00:00: 00 Amoxicillin 2019-0 2019- No 1 5-16 06-06 00:00: 12:12 00 :49 Palonosetro 2019-0 No .25mg Palonosetr n HCl 4-25 on HCl 00:00: 00 Dexamethaso 2019-0 No 10mg Dexamethas ne Sodium 4-25 one Sodium Phosphate 00:00: Phosphate 00 Dextrose 2019-0 No 50mL Dextrose 4-25 00:00: 00 Oxaliplatin 2019-0 No 246mg Oxaliplati 4-25 n 00:00: 00 Palonosetro 2019-0 No .25mg Palonosetr n HCl 4-04 on HCl 00:00: 00 Dexamethaso 2019-0 No 10mg Dexamethas ne Sodium 4-04 one Sodium Phosphate 00:00: Phosphate 00 Dextrose 2019-0 No 40mL Dextrose 4-04 00:00: 00 Oxaliplatin 2019-0 No 247mg Oxaliplati 4-04 n 00:00: 00 Palonosetro 2019-0 No .25mg Palonosetr n HCl 3-14 on HCl 00:00: 00 Dexamethaso 2019-0 No 20mg Dexamethas ne Sodium 3-14 one Sodium Phosphate 00:00: Phosphate 00 Dextrose 2019-0 No 50mL Dextrose 3-14 00:00: 00 Oxaliplatin 2019-0 No 247mg Oxaliplati 3-14 n 00:00: 00 Palonosetro 2019-0 No .25mg Palonosetr n HCl 2-21 on HCl 00:00: 00 Dexamethaso 2019-0 No 10mg Dexamethas ne Sodium 2-21 one Sodium Phosphate 00:00: Phosphate 00 Dextrose 2019-0 No 50mL Dextrose 2-21 00:00: 00 Oxaliplatin 2019-0 No 242mg Oxaliplati 2-21 n 00:00: 00 Palonosetro 2019-0 No .25mg Palonosetr n HCl 1-31 on HCl 00:00: 00 Dexamethaso 2019-0 No 10mg Dexamethas ne Sodium 1-31 one Sodium Phosphate 00:00: Phosphate 00 Dextrose 2019-0 No 50mL Dextrose 1-31 00:00: 00 Oxaliplatin 2019-0 No 243mg Oxaliplati 1-31 n 00:00: 00 DiphenhydrA 2019-0 2019- No 25mg MINE HCl 1-31 05-16 00:00: 00:00 00 :00 Lomotil 2019-0 2019- No 1-31 05-16 00:00: 11:57 00 :57 Palonosetro 2019-0 No .25mg Palonosetr n HCl 1-10 on HCl 00:00: 00 Dexamethaso 2019-0 No 10mg Dexamethas ne Sodium 1-10 one Sodium Phosphate 00:00: Phosphate 00 Dextrose 2019-0 No 50mL Dextrose 1-10 00:00: 00 Oxaliplatin 2019-0 No 243mg Oxaliplati 1-10 n 00:00: 00 Dextrose 2018-1 No 50mL Dextrose 2-13 00:00: 00 Dexamethaso 2018-1 2019- No 10mg Dexamethas ne Sodium 2-13 05-16 one Sodium Phosphate 00:00: 00:00 Phosphate 00 :00 Dextrose 2018-1 2019- No 50mL 2-13 05-16 00:00: 00:00 00 :00 Oxaliplatin 2018-1 2019- No 239mg Oxaliplati 2-13 05-16 n 00:00: 00:00 00 :00 Palonosetro 2018-1 2019- No .25mg Palonosetr n HCl 2-13 05-16 on HCl 00:00: 00:00 00 :00 Zofran 2018-1 2019- No 1 2-13 05-16 00:00: 11:57 00 :57 Promethazin 2017-1 2019- No 1 e HCl 2-04-05 00:00: 12:04 00 :20 Capecitabin 2018-1 2019- No e -30 10-23 00:00: 13:31 00 :14 PredniSONE 2018-1 2019- No 1-04-05 00:00: 12:04 00 :20 Probiotic 2018-1 2019- No Daily -04-05 00:00: 12:04 00 :20 Amoxicillin 2018-0 Yes Kee 1Capsul Amoxicilli 500 MG Oral - Filippo mart n 500 MG Capsule 00:00: [employer]PERATIONS SUPERVISOR Oral 00 Capsule 1 (one) Capsule tid for 10 days Quantity: 30 Refills: 0 Ordered : 8 Kee Barkley [employer]PERATIONS SUPERVISOR Started 8 Active Black Seed Yes Black Seed Oil - 8- Oil - Historical 16:18: Historical Medication 56 Medication Active LEVOXYL, Yes QD LEVOXYL, 200MCG 8-24 200MCG (Oral 16:18: (Oral Tablet) - 15 Tablet) - Historical Historical Medication Medication daily Active Phentermine Yes 0 Phentermin HCl 37.5 MG 8-24 e HCl 37.5 Oral Tablet 16:18: MG Oral - 15 Tablet - Historical Historical Medication Medication TIW Active Valtrex 1 Yes Blu Gutierrez 1Tablet Valtrex 1 GM Oral 8-24 Douglass GM Oral Tablet 00:00: Tablet 1 00 (one) Tablet bid for 7 days for 7 days Quantity: 14 Refills: 5 Ordered : 8 Blu Douglass MD Started 8 Active Zovirax 5 % Yes Blu Gutierrez 1Cream Zovirax 5 External -24 Douglass % External Cream 00:00: Cream 1 00 (one) Cream apply 5 times daily for 5 days Quantity: 1 Refills: 3 Ordered : 8 Blu Douglass MD Started 8 Active Victoza 18 2015-02 No Victoza 18 Med icatio MG/3ML 2-28 MG/3ML n taken Subcutaneou 14:41: Subcutaneo as s Solution 47 us needed. Pen-injecto Solution r - Pen-inject Historical or - Medication Historical Medication as needed Inactive Comments: Medication taken as needed. VITAMIN D, 2015-02 No 1 VITAMIN D, TWI CE A [id number] - [id number] WEEK (Oral 15:29: (Oral Capsule) - 40 Capsule) - Historical Historical Medication Medication 1 QD Inactive Comments: TWICE A WEEK MULTIVITAMI 2015-02 No QD MULTIVITAM NS (Oral -29 INS (Oral Tablet) - 15:29: Tablet) - Historical 15 Historical Medication Medication daily Inactive SYNTHROID, 2012-02- No Gricel Barclay SYNTHROID , 175MCG 0-04 10-04 Guimbal 175MCG (Oral 08:40: 00:00 (Oral Tablet) 45 :00 Tablet) QD for 0 days Quantity: 0 Refills: 0 Ordered : 16-Nov-2012 Gricel Garcia Ended 16-Nov-2012 Inactive IRON 2011-02- BID IRON (FERROUS 03-03 (FERROUS SULFATE), 16:03: 00:00 SULFATE), 325MG (PO 45 :00 325MG (PO Tab) - Tab) - Historical Historical Medication Medication two times daily Ended 2 Discontinu ed LEVONORGEST No Rhoda Roes LEVONORGE S REL-RELEASI 10-18 Shilpa GOMEZ TREL-RELEA NG 14:10: SING INTRAUTERIN 24 INTRAUTERI E NE CONTRACEPTI CONTRACEPT VE SYSTEM, RICHARD 52 MG SYSTEM, 52 (Non-covere MG d by (Non-cover Medicare. ed by Statute Medicare. reference: Statute 2a) reference: ) Ordered : 19-Oct-2011 Rhoda Massey MD Pending GLUCOPHAGE, Yes Laurie 0 BID GLUCOPHAG E 500MG (Oral 09-28 Best , 500MG Tablet) 10:16: (Oral 52 Tablet) 500mg two times daily for 0 days Quantity: 0 Refills: 0 Ordered : 2 Laurie Basurto Active 2008- No 1 (Oral 10-28 (Oral Tablet) - 14:41: 00:00 Tablet) - Historical 07 :00 Historical Medication Medication 1 QD Ended 9 Inactive LOESTRIN 24 2008- No Laurie Mendezt LOESTRI N CALLED TO RUDI, 05-21 Sb 24 EBONIE GRIJALVAK 1-20MG-MCG 00:00: 00:00 1-20MG-MCG (Oral 00 :00 (Oral Tablet) Tablet) 1 (one) Tablet QD for 28 days Quantity: 1 Refills: 3 Ordered : 21-May-2008 Laurie Basurto Started 21-May-2008 Ended 9 Inactive Comments: CALLED TO REALO MLK SONIA, 2008- No Laurie Reeves SONIA, 3-0.02MG 05-01 Best 3-0.02MG (Oral 00:00: 00:00 (Oral Tablet) 00 :00 Tablet) 1 Tablet QD for 28 days Quantity: 1 Refills: 6 Ordered : 9 Laurie Basurto Started 9 Ended 9 Inactive FAMVIR, 2007- No Maria M FAMVIR, 125MG (Oral 09-02 Greg METCALF 125MG Tablet) 13:59: 00:00 (Oral 57 :00 Tablet) B.I.D. X 5 DAYS, P.O. HSV STUDY for 0 days Quantity: 0 Refills: 0 Ordered : 08 Maria M Garza LPN Ended 08 Discontinu ed TEO 28, 2003-2007- No Jillian BRUCE 28, 3-0.03MG 07-08 Shakila MARQUEZ 3-0.03MG (Oral 00:00: 00:00 (Oral Tablet) 00 :00 Tablet) Tab QD for 30 days Quantity: 30 Refills: 3 Ordered : 4 Jillian Jhaveri RN Started 4 Ended Inactive Mapap No Mapap (acetaminop (acetamino hen) 325 mg phen) 325 tablet mg tablet metformin No metformin ER 500 mg ER 500 mg tablet,exte tablet,ext nded ended release 24 release 24 hr hr Mucinex DM No Mucinex DM 60 mg-1,200 60 mg mg-1,200 tablet,exte mg nded tablet,ext release 12 ended hr release 12 hr oxycodone 5 No oxycodone mg tablet 5 mg tablet permethrin No permethrin 5 % topical 5 % cream topical cream prednisone No prednisone 20 mg 20 mg tablet Take tablet 2 tablets Take 2 BID day tablets before BID day procedure, before Take 2 procedure, tablets BID Take 2 day of tablets procedure. BID day of procedure. sertraline No sertraline 50 mg 50 mg tablet tablet triamcinolo No triamcinol ne one acetonide acetonide 0.1 % 0.1 % topical topical cream cream valacyclovi No valacyclov r 1 gram ir 1 gram tablet tablet Zovirax 5 % No Zovirax 5 topical % topical cream cream fluticasone No fluticason 50 e 50 mcg/actuati mcg/actuat on nasal ion nasal spray,suspe spray,susp nsion ension Valium 5 mg No 1 BID Valium 5 tablet Take mg tablet 1 tablet Take 1 twice a day tablet by oral twice a route. Take day by 5 mg 30 min oral prior to route. your Take 5 mg procedure- 30 min bring the prior to other table your with youDo procedure- not drive bring the while other taking this table with medication you Do not drive while taking this medication amoxicillin No amoxicilli 875 n 875 mg-potassiu mg-potassi m um clavulanate clavulanat 125 mg e 125 mg tablet tablet capecitabin No capecitabi e 150 mg ne 150 mg tablet tablet capecitabin No capecitabi e 500 mg ne 500 mg tablet tablet Black Yes 1 Currant Seed Oil Levoxyl Yes 1 Phentermine 2019- No .5 HCl 08-12 13:46 :20 B12 Fast 2018- No 1 Dissolve 01-22 13:50 :43 Ferrous 2018- No 1 Sulfate 01-22 13:50 :53 Acyclovir 2018- No 06-28 11:57 :27 Permethrin 2018- No 06-28 11:57 :34 Triamcinolo 2018- No ne 06-28 Acetonide 11:57 :39 Valtrex 2018- No 06-28 11:57 :45 MetFORMIN 2018- No 1 HCl 04-05 12:03 :55 OxyCODONE 2018- No 1 HCl 04-05 12:04 :02 Zoloft 2019- No 1 04-05 12:03 :43 Acetaminoph 2018- No 1 en 01-12 14:03 :13 [facility] Mucus 2018- No Extended 01-12 Release 14:02 :49 PredniSONE 2017- No 01-12 14:03 :01 Problems Condition Condition Condition Status Onset Resolution Last Treatin g Comments Name Details Category Date Date Treatment Clinician Date 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 to and due to and 00:00: following following 00 chemotherap chemotherap y y Malabsorpti Malabsorpti Diagnosis active 2018-02 on - iron on - iron 0-18 00:00: 00 Iron Iron Diagnosis active 2018-02 deficiency deficiency 0-11 anemia anemia 00:00: 00 Laryngeal Laryngeal Diagnosis active spasm spasm 1-31 00:00: 00 Patient Patient Diagnosis active 2017-02 encounter encounter 2-11 status status 00:00: 00 Stuttering Stuttering Problem Active 2017-02 1 00:00: 00 Iron Iron Diagnosis active 2017-02 deficiency deficiency 02-13 anemia due anemia due 00:00: to blood to blood 00 loss loss Malignant Malignant Diagnosis active 2017-02 tumor of tumor of 0-01 ascending ascending 00:00: colon colon 00 ABSENCE OF ABSENCE OF Problem Active Filippo MENSTRUATIO MENSTRUATIO Kee N (626.0) N BACK PAIN BACK PAIN Problem Active Filippo, (724.5) Kee BREAST MASS BREAST MASS Problem Active Filippo , (611.72) Kee BREAST PAIN BREAST PAIN Problem Active Filippo Kee DYSFUNCTION DYSFUNCTION Problem Active Filippo AL UTERINE AL UTERINE Kee BLEEDING BLEEDING (626.8) DYSMENORRHE DYSMENORRHE Problem Active Filippo A (625.3) A Kee FIBROADENOS FIBROADENOS Problem Active Filippo , IS OF IS OF Kee BREAST BREAST (610.2) HERPES HERPES Problem Active Douglass, Blu H HERPES HERPES Problem Active Filippo SIMPLEX SIMPLEX Kee (054.) (054.) INTRAMURAL INTRAMURAL Problem Active Filippo, 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 MENORRHAGIA MENORRHAGIA Problem Active Filippo , (626.2) Kee MICROSCOPIC MICROSCOPIC Problem Active Filippo , HEMATURIA HEMATURIA Kee (599.72) RECTAL RECTAL Problem Active Douglass, ITCHING ITCHING Blu H SCREENING SCREENING Problem Active Filippo, MAMMOGRAM MAMMOGRAM Kee NEC NEC (V76.12) SURVEILLANC SURVEILLANC Problem Active Barron Barkley OF E OF Kee CONTRACEPTI CONTRACEPTI VE PILL VE PILL (V25.41) SYMP SYMP Problem Active Filippo, ASSOCIATED ASSOCIATED Kee W/FEMALE W/FEMALE GENITAL GENITAL ORGANS NOS ORGANS NOS (625.9) INSERTION INSERTION Problem Inactiv Jhaveri, OF IUD OF IUD e Jillian (V25.11) ROUTINE ROUTINE Problem Inactiv Jhaveri, e Jillian FOLLOW-UP FOLLOW-UP (V24.2) Disease No Condition Inactiv Impairment e Information Available STREP STREP Problem Active Filippo THROAT/SCAR THROAT/SCAR Kee LET FEVER LET FEVER Procedures Procedure Date / Time Performed Performing Clinician Devic e OFFICE/OUTPATIENT VISIT [facility] 2018-10-29 13:30:00 Colectomy, Partial, Laparoscopic 2017-12-06 00:00:00 Colectomy parital 2017-12-06 00:00:00 colonoscopy 2017-02-13 00:00:00 No Known Diagnostic Studies History 2014-06-26 00:00:00 Aiyana Boo Uterine fibroid embolization 2013-09-13 00:00:00 Bone Density Study Kee Barkley Colonoscopy Kee Barkley ELECTIVE (635.90) Kee Barkley Mammogram, Screening Kee Barkley Non-Contributory Diagnostic Studies Girma Basurto History Pap Smear Kee Barkley Thyroidectomy; Total Kee Barkley Colonoscopy Cholecystectomy Other Thyroid Surgery Caesarean Section Thyroidectomy section cholecystectomy Results Test Description Test Time Test Comments Text Results Atomic Results Result Comments Creatinine 2019-10-22 12:46:00 Test Item Value Reference Range Comments Creatinine (test code = Creatinine) 0.6900 mg/dL 0.5700-1.000 0 Cr Clearance (Est) (test code = Cr Clearance 147.5300 75. 0000-115.0000 (Est)) Glucose (test code = Glucose) 92.0000 mg/dL 65.0000-99.0000 BUN (test code = BUN) 9.0000 mg/dL 6.0000-24.0000 eGFR Hhz-Eqtqsoz-Enchlwzs (test code = eGFR 104.0000 Rlu-Coewjek-Fhanflsq) eGFR -Senegalese (test code = eGFR 120.0000 -Senegalese) BUN/Creat Ratio (test code = BUN/Creat Ratio) 13.0000 9. 0000-23.0000 Sodium (test code = Sodium) 141.0000 mmol/L 134.0000-144.0000 Potassium (test code = Potassium) 3.9000 mmol/L 3.5000-5.2000 Chloride (test code = Chloride) 101.0000 mmol/L 96.0000-106.0000 CO2 (test code = CO2) 27.0000 mmol/L 20.0000-29.0000 Calcium (test code = Calcium) 10.1000 mg/dL 8.7000-10.2000 Protein, Total (test code = Protein, Total) 6.7000 g/dL 6.00 00-8.5000 Albumin (test code = Albumin) 4.3000 g/dL 3.8000-4.8000 Globulin (test code = Globulin) 2.4000 g/dL 1.5000-4.5000 A/G Ratio (test code = A/G Ratio) 1.8000 1.2000-2.2000 Bilirubin, Total (test code = Bilirubin, Total) 0.7000 mg/dL 0.0000-1.2000 Alkaline Phosphatase (test code = Alkaline 147.0000 39.00 00-117.0000 Phosphatase) AST (SGOT) (test code = AST (SGOT)) 24.0000 0.0000-40.00 00 ALT (SGPT) (test code = ALT (SGPT)) 25.0000 0.0000-32.00 00 Iron, Total (test code = Iron, Total) 71.0000 27.0000-15 9.0000 TIBC (test code = TIBC) 338.0000 250.0000-450.0000 UIBC (test code = UIBC) 267.0000 131.0000-425.0000 % Iron Saturation (test code = % Iron Saturation) 21.0000 % 15.0000-55.0000 Ferritin (test code = Ferritin) 187.0000 ng/mL 15.0000-150.0000 [id number] 12:46:00 Test Item Value Reference Range Comments CEA (test code = CEA) 5.3000 ng/mL 0.0000-4.7000 Protein, [id number] 12:46:00 Test Item Value Reference Range Comments Protein, Total (test code = Protein, 6.7000 g/dL 6.0000-8.50 00 Total) Albumin (test code = Albumin) 4.3000 g/dL 3.8000-4.8000 Globulin (test code = Globulin) 2.4000 g/dL 1.5000-4.5000 Calcium (test code = Calcium) 10.1000 mg/dL 8.7000-10.2000 Glucose (test code = Glucose) 92.0000 mg/dL 65.0000-99.0000 Creatinine (test code = Creatinine) 0.6900 mg/dL 0.5700-1.000 0 Bilirubin, Total (test code = Bilirubin, 0.7000 mg/dL 0.0000- 1.2000 Total) BUN (test code = BUN) 9.0000 mg/dL 6.0000-24.0000 Ferritin (test code = Ferritin) 187.0000 ng/mL 15.0000-150.0000 Cr Clearance (Est) (test code = Cr 147.5300 75.0000-115.0 000 Clearance (Est)) % Iron Saturation (test code = % Iron 21.0000 % 15.0000-55 .0000 Saturation) A/G Ratio (test code = A/G Ratio) 1.8000 1.2000-2.2000 BUN/Creat Ratio (test code = BUN/Creat 13.0000 9.0000-23 .0000 Ratio) eGFR -Senegalese (test code = eGFR 120.0000 -Senegalese) eGFR Wiu-Syhpuom-Qijtensu (test code = 104.0000 eGFR Scw-Owldtsy-Kjfnjkos) Sodium (test code = Sodium) 141.0000 mmol/L 134.0000-144.0000 Potassium (test code = Potassium) 3.9000 mmol/L 3.5000-5.2000 Chloride (test code = Chloride) 101.0000 mmol/L 96.0000-106.0000 CO2 (test code = CO2) 27.0000 mmol/L 20.0000-29.0000 ALT (SGPT) (test code = ALT (SGPT)) 25.0000 0.0000-32.00 00 AST (SGOT) (test code = AST (SGOT)) 24.0000 0.0000-40.00 00 Alkaline Phosphatase (test code = Alkaline 147.0000 39.00 00-117.0000 Phosphatase) TIBC (test code = TIBC) 338.0000 250.0000-450.0000 Iron, Total (test code = Iron, Total) 71.0000 27.0000-15 9.0000 UIBC (test code = UIBC) 267.0000 131.0000-425.0000 [id number] 09:49:00 Test Item Value Reference Range Comments WBC (test code = WBC) 4.9000 4.0000-10.0000 Lymphocytes % (test code = Lymphocytes %) 31.5000 % 22.400 0-43.6000 MID% (test code = MID%) 7.3000 % 1.2000-11.1999 Neutrophils % (test code = Neutrophils %) 61.2000 % 48.900 0-69.9000 Lymphocytes (test code = Lymphocytes) 1.5000 1.2000-3.2 000 MID (test code = MID) 0.4000 0.1000-1.1000 Neutrophils (test code = Neutrophils) 3.0000 1.5000-6.7 000 RBC (test code = RBC) 4.5000 3.7000-4.9000 HGB (test code = HGB) 12.9000 g/dL 11.2000-18.0000 HCT (test code = HCT) 39.6000 % 34.0000-44.0000 MCV (test code = MCV) 87.9000 fL 80.0000-94.0000 MCH (test code = MCH) 28.6000 pg 27.0000-34.0000 MCHC (test code = MCHC) 32.5000 g/dL 31.5000-36.0000 RDW (test code = RDW) 14.8000 11.0000-18.0000 PLT (test code = PLT) 187.0000 140.0000-440.0000 MPV (test code = MPV) 9.3000 fL 6.8000-10.6000 [id number] 14:26:00 Test Item Value Reference Range Comments Creatinine (test code = Creatinine) 0.8000 mg/dL 0.5700-1.000 0 Cr Clearance (Est) (test code = Cr 123.5100 75.0000-115.0 000 Clearance (Est)) Glucose (test code = Glucose) 122.0000 mg/dL 65.0000-99.0000 BUN (test code = BUN) 7.0000 mg/dL 6.0000-24.0000 eGFR Wxz-Douqyrp-Cmrzhtqd (test code = 88.0000 eGFR Mjl-Ttmhcwq-Edwxyxuf) eGFR -Senegalese (test code = eGFR 102.0000 -Senegalese) BUN/Creat Ratio (test code = BUN/Creat 9.0000 9.0000-23 .0000 Ratio) Sodium (test code = Sodium) 142.0000 mmol/L 134.0000-144.0000 Potassium (test code = Potassium) 3.9000 mmol/L 3.5000-5.2000 Chloride (test code = Chloride) 103.0000 mmol/L 96.0000-106.0000 CO2 (test code = CO2) 27.0000 mmol/L 20.0000-29.0000 Calcium (test code = Calcium) 9.4000 mg/dL 8.7000-10.2000 Protein, Total (test code = Protein, 7.1000 g/dL 6.0000-8.50 00 Total) Albumin (test code = Albumin) 4.4000 g/dL 3.8000-4.8000 Globulin (test code = Globulin) 2.7000 g/dL 1.5000-4.5000 A/G Ratio (test code = A/G Ratio) 1.6000 1.2000-2.2000 Bilirubin, Total (test code = Bilirubin, 0.6000 mg/dL 0.0000- 1.2000 Total) Alkaline Phosphatase (test code = Alkaline 153.0000 39.00 00-117.0000 Phosphatase) AST (SGOT) (test code = AST (SGOT)) 22.0000 0.0000-40.00 00 ALT (SGPT) (test code = ALT (SGPT)) 25.0000 0.0000-32.00 00 Iron, Total (test code = Iron, Total) 101.0000 27.0000-15 9.0000 TIBC (test code = TIBC) 320.0000 250.0000-450.0000 UIBC (test code = UIBC) 219.0000 131.0000-425.0000 % Iron Saturation (test code = % Iron 32.0000 % 15.0000-55 .0000 Saturation) FSH (test code = FSH) LH (test code = LH) T4, Free (test code = T4, Free) 1.1700 ng/dL 0.8200-1.7700 TSH (test code = TSH) 3.2200 0.4500-4.5000 Estradiol (test code = Estradiol) 15.1000 pg/mL Ferritin (test code = Ferritin) 153.0000 ng/mL 15.0000-150.0000 T3, Free (test code = T3, Free) 2.0000 pg/mL 2.0000-4.4000 [id number] 14:26:00 Test Item Value Reference Range Comments CEA (test code = CEA) 6.0000 ng/mL 0.0000-4.7000 [id number] 14:26:00 Test Item Value Reference Range Comments Albumin (test code = Albumin) 4.4000 g/dL 3.8000-4.8000 Globulin (test code = Globulin) 2.7000 g/dL 1.5000-4.5000 Protein, Total (test code = Protein, 7.1000 g/dL 6.0000-8.50 00 Total) Bilirubin, Total (test code = Bilirubin, 0.6000 mg/dL 0.0000- 1.2000 Total) Creatinine (test code = Creatinine) 0.8000 mg/dL 0.5700-1.000 0 Calcium (test code = Calcium) 9.4000 mg/dL 8.7000-10.2000 Glucose (test code = Glucose) 122.0000 mg/dL 65.0000-99.0000 Estradiol (test code = Estradiol) 15.1000 pg/mL T3, Free (test code = T3, Free) 2.0000 pg/mL 2.0000-4.4000 Ferritin (test code = Ferritin) 153.0000 ng/mL 15.0000-150.0000 Cr Clearance (Est) (test code = Cr 123.5100 75.0000-115.0 000 Clearance (Est)) FSH (test code = FSH) LH (test code = LH) % Iron Saturation (test code = % Iron 32.0000 % 15.0000-55 .0000 Saturation) eGFR -Senegalese (test code = eGFR 102.0000 -Senegalese) eGFR Dfa-Ukxspka-Caputbhp (test code = 88.0000 eGFR Mzo-Ctjcnlo-Yeqwhhtj) BUN/Creat Ratio (test code = BUN/Creat 9.0000 9.0000-23 .0000 Ratio) A/G Ratio (test code = A/G Ratio) 1.6000 1.2000-2.2000 Alkaline Phosphatase (test code = Alkaline 153.0000 39.00 00-117.0000 Phosphatase) AST (SGOT) (test code = AST (SGOT)) 22.0000 0.0000-40.00 00 ALT (SGPT) (test code = ALT (SGPT)) 25.0000 0.0000-32.00 00 CO2 (test code = CO2) 27.0000 mmol/L 20.0000-29.0000 Chloride (test code = Chloride) 103.0000 mmol/L 96.0000-106.0000 Potassium (test code = Potassium) 3.9000 mmol/L 3.5000-5.2000 Sodium (test code = Sodium) 142.0000 mmol/L 134.0000-144.0000 TSH (test code = TSH) 3.2200 0.4500-4.5000 T4, Free (test code = T4, Free) 1.1700 ng/dL 0.8200-1.7700 TIBC (test code = TIBC) 320.0000 250.0000-450.0000 UIBC (test code = UIBC) 219.0000 131.0000-425.0000 Iron, Total (test code = Iron, Total) 101.0000 27.0000-15 9.0000 BUN (test code = BUN) 7.0000 mg/dL 6.0000-24.0000 [id number] 13:36:00 Test Item Value Reference Range Comments WBC (test code = WBC) 4.0000 4.0000-10.0000 Lymphocytes % (test code = Lymphocytes %) 37.7000 % 22.400 0-43.6000 MID% (test code = MID%) 6.8000 % 1.2000-11.2000 Neutrophils % (test code = Neutrophils %) 55.5000 % 48.900 0-69.9000 Lymphocytes (test code = Lymphocytes) 1.5000 1.2000-3.2 000 MID (test code = MID) 0.3000 0.1000-1.1000 Neutrophils (test code = Neutrophils) 2.2000 1.5000-6.7 000 RBC (test code = RBC) 4.6700 3.7000-4.9000 HGB (test code = HGB) 13.8000 g/dL 11.2000-18.0000 HCT (test code = HCT) 42.6000 % 34.0000-44.0000 MCV (test code = MCV) 91.2000 fL 80.0000-94.0000 MCH (test code = MCH) 29.6000 pg 27.0000-34.0000 MCHC (test code = MCHC) 32.5000 g/dL 31.5000-36.0000 RDW (test code = RDW) 14.7000 11.0000-18.0000 PLT (test code = PLT) 151.0000 140.0000-440.0000 MPV (test code = MPV) 9.4000 fL 6.8000-10.6000 [id number] 12:11:00 Test Item Value Reference Range Comments Creatinine (test code = Creatinine) 0.6900 mg/dL 0.5700-1.000 0 Cr Clearance (Est) (test code = Cr 131.9400 75.0000-115.0 000 Clearance (Est)) Glucose (test code = Glucose) 84.0000 mg/dL 65.0000-99.0000 BUN (test code = BUN) 7.0000 mg/dL 6.0000-24.0000 eGFR Ptk-[place]-Kunumdzx (test code = 104.0000 eGFR Hsr-Fljyfqa-Legcqeoq) eGFR -[place] (test code = eGFR 120.0000 -[place]) BUN/Creat Ratio (test code = BUN/Creat 10.0000 9.0000-23 .0000 Ratio) Sodium (test code = Sodium) 140.0000 mmol/L 134.0000-144.0000 Potassium (test code = Potassium) 4.4000 mmol/L 3.5000-5.2000 Chloride (test code = Chloride) 102.0000 mmol/L 96.0000-106.0000 CO2 (test code = CO2) 26.0000 mmol/L 20.0000-29.0000 Calcium (test code = Calcium) 10.1000 mg/dL 8.7000-10.2000 Protein, Total (test code = Protein, 7.0000 g/dL 6.0000-8.50 00 Total) Albumin (test code = Albumin) 4.3000 g/dL 3.8000-4.8000 Globulin (test code = Globulin) 2.7000 g/dL 1.5000-4.5000 A/G Ratio (test code = A/G Ratio) 1.6000 1.2000-2.2000 Bilirubin, Total (test code = Bilirubin, 0.8000 mg/dL 0.0000- 1.2000 Total) Alkaline Phosphatase (test code = Alkaline 142.0000 39.00 00-117.0000 Phosphatase) AST (SGOT) (test code = AST (SGOT)) 25.0000 0.0000-40.00 00 ALT (SGPT) (test code = ALT (SGPT)) 23.0000 0.0000-32.00 00 Iron, Total (test code = Iron, Total) 97.0000 27.0000-15 9.0000 TIBC (test code = TIBC) 316.0000 250.0000-450.0000 UIBC (test code = UIBC) 219.0000 131.0000-425.0000 % Iron Saturation (test code = % Iron 31.0000 % 15.0000-55 .0000 Saturation) Ferritin (test code = Ferritin) 186.0000 ng/mL 15.0000-150.0000 [id number] 12:11:00 Test Item Value Reference Range Comments CEA (test code = CEA) 5.3000 ng/mL 0.0000-4.7000 Protein, [id number] 12:11:00 Test Item Value Reference Range Comments Protein, Total (test code = Protein, 7.0000 g/dL 6.0000-8.50 00 Total) Globulin (test code = Globulin) 2.7000 g/dL 1.5000-4.5000 Albumin (test code = Albumin) 4.3000 g/dL 3.8000-4.8000 Glucose (test code = Glucose) 84.0000 mg/dL 65.0000-99.0000 Calcium (test code = Calcium) 10.1000 mg/dL 8.7000-10.2000 Creatinine (test code = Creatinine) 0.6900 mg/dL 0.5700-1.000 0 Bilirubin, Total (test code = Bilirubin, 0.8000 mg/dL 0.0000- 1.2000 Total) Ferritin (test code = Ferritin) 186.0000 ng/mL 15.0000-150.0000 Cr Clearance (Est) (test code = Cr 131.9400 75.0000-115.0 000 Clearance (Est)) % Iron Saturation (test code = % Iron 31.0000 % 15.0000-55 .0000 Saturation) BUN/Creat Ratio (test code = BUN/Creat 10.0000 9.0000-23 .0000 Ratio) eGFR -[place]e (test code = eGFR 120.0000 -[place]) A/G Ratio (test code = A/G Ratio) 1.6000 1.2000-2.2000 eGFR Hla-Hjrkwis-Bxvyhbwf (test code = 104.0000 eGFR Xwx-Vtabmjh-Ukkhojly) Sodium (test code = Sodium) 140.0000 mmol/L 134.0000-144.0000 Potassium (test code = Potassium) 4.4000 mmol/L 3.5000-5.2000 Chloride (test code = Chloride) 102.0000 mmol/L 96.0000-106.0000 CO2 (test code = CO2) 26.0000 mmol/L 20.0000-29.0000 ALT (SGPT) (test code = ALT (SGPT)) 23.0000 0.0000-32.00 00 AST (SGOT) (test code = AST (SGOT)) 25.0000 0.0000-40.00 00 Alkaline Phosphatase (test code = Alkaline 142.0000 39.00 00-117.0000 Phosphatase) TIBC (test code = TIBC) 316.0000 250.0000-450.0000 Iron, Total (test code = Iron, Total) 97.0000 27.0000-15 9.0000 UIBC (test code = UIBC) 219.0000 131.0000-425.0000 BUN (test code = BUN) 7.0000 mg/dL 6.0000-24.0000 [id number] 16:11:00 Test Item Value Reference Range Comments WBC (test code = WBC) 4.5000 4.0000-10.0000 Lymphocytes % (test code = Lymphocytes %) 36.7000 % 22.400 0-43.6000 MID% (test code = MID%) 5.7000 % 1.2000-11.2000 Neutrophils % (test code = Neutrophils %) 57.6000 % 48.900 0-69.9000 Lymphocytes (test code = Lymphocytes) 1.6000 1.2000-3.2 000 MID (test code = MID) 0.3000 0.1000-1.1000 Neutrophils (test code = Neutrophils) 2.6000 1.5000-6.7 000 RBC (test code = RBC) 4.8900 3.7000-4.9000 HGB (test code = HGB) 13.5000 g/dL 11.2000-18.0000 HCT (test code = HCT) 43.9000 % 34.0000-44.0000 MCV (test code = MCV) 89.6000 fL 80.0000-94.0000 MCH (test code = MCH) 27.6000 pg 27.0000-34.0000 MCHC (test code = MCHC) 30.8000 g/dL 31.5000-36.0000 RDW (test code = RDW) 14.9000 11.0000-18.0000 PLT (test code = PLT) 237.0000 140.0000-440.0000 MPV (test code = MPV) 8.7000 fL 6.8000-10.6000 [id number] 15:58:00 Test Item Value Reference Range Comments Creatinine (test code = Creatinine) 0.6500 mg/dL 0.5700-1.000 0 Cr Clearance (Est) (test code = Cr 140.0600 75.0000-115.0 000 Clearance (Est)) Glucose (test code = Glucose) 100.0000 mg/dL 65.0000-99.0000 BUN (test code = BUN) 10.0000 mg/dL 6.0000-24.0000 eGFR Heb-Wqytxbq-Yfqiodrh (test code = 106.0000 eGFR Obs-Wfiuadh-Nrxbtnay) eGFR -[place]e (test code = eGFR 122.0000 -[place]) BUN/Creat Ratio (test code = BUN/Creat 15.0000 9.0000-23 .0000 Ratio) Sodium (test code = Sodium) 143.0000 mmol/L 134.0000-144.0000 Potassium (test code = Potassium) 4.3000 mmol/L 3.5000-5.2000 Chloride (test code = Chloride) 102.0000 mmol/L 96.0000-106.0000 CO2 (test code = CO2) 25.0000 mmol/L 20.0000-29.0000 Calcium (test code = Calcium) 9.7000 mg/dL 8.7000-10.2000 Protein, Total (test code = Protein, 7.0000 g/dL 6.0000-8.50 00 Total) Albumin (test code = Albumin) 4.3000 g/dL 3.5000-5.5000 Globulin (test code = Globulin) 2.7000 g/dL 1.5000-4.5000 A/G Ratio (test code = A/G Ratio) 1.6000 1.2000-2.2000 Bilirubin, Total (test code = Bilirubin, 0.8000 mg/dL 0.0000- 1.2000 Total) Alkaline Phosphatase (test code = Alkaline 144.0000 39.00 00-117.0000 Phosphatase) AST (SGOT) (test code = AST (SGOT)) 29.0000 0.0000-40.00 00 ALT (SGPT) (test code = ALT (SGPT)) 25.0000 0.0000-32.00 00 Iron, Total (test code = Iron, Total) 101.0000 27.0000-15 9.0000 TIBC (test code = TIBC) 293.0000 250.0000-450.0000 UIBC (test code = UIBC) 192.0000 131.0000-425.0000 % Iron Saturation (test code = % Iron 34.0000 % 15.0000-55 .0000 Saturation) Ferritin (test code = Ferritin) 350.0000 ng/mL 15.0000-150.0000 [id number] 15:58:00 Test Item Value Reference Range Comments CEA (test code = CEA) 6.3000 ng/mL 0.0000-4.7000 [id number] 15:58:00 Test Item Value Reference Range Comments Albumin (test code = Albumin) 4.3000 g/dL 3.5000-5.5000 Globulin (test code = Globulin) 2.7000 g/dL 1.5000-4.5000 Protein, Total (test code = Protein, 7.0000 g/dL 6.0000-8.50 00 Total) Bilirubin, Total (test code = Bilirubin, 0.8000 mg/dL 0.0000- 1.2000 Total) Creatinine (test code = Creatinine) 0.6500 mg/dL 0.5700-1.000 0 Calcium (test code = Calcium) 9.7000 mg/dL 8.7000-10.2000 Glucose (test code = Glucose) 100.0000 mg/dL 65.0000-99.0000 Ferritin (test code = Ferritin) 350.0000 ng/mL 15.0000-150.0000 Cr Clearance (Est) (test code = Cr 140.0600 75.0000-115.0 000 Clearance (Est)) % Iron Saturation (test code = % Iron 34.0000 % 15.0000-55 .0000 Saturation) eGFR Pbx-Qqwxotw-Ppnrinuo (test code = 106.0000 eGFR Mah-Odexowt-Stzqtjpi) eGFR -[place] (test code = eGFR 122.0000 -[place]) A/G Ratio (test code = A/G Ratio) 1.6000 1.2000-2.2000 BUN/Creat Ratio (test code = BUN/Creat 15.0000 9.0000-23 .0000 Ratio) Alkaline Phosphatase (test code = Alkaline 144.0000 39.00 00-117.0000 Phosphatase) AST (SGOT) (test code = AST (SGOT)) 29.0000 0.0000-40.00 00 ALT (SGPT) (test code = ALT (SGPT)) 25.0000 0.0000-32.00 00 CO2 (test code = CO2) 25.0000 mmol/L 20.0000-29.0000 Chloride (test code = Chloride) 102.0000 mmol/L 96.0000-106.0000 Potassium (test code = Potassium) 4.3000 mmol/L 3.5000-5.2000 Sodium (test code = Sodium) 143.0000 mmol/L 134.0000-144.0000 TIBC (test code = TIBC) 293.0000 250.0000-450.0000 UIBC (test code = UIBC) 192.0000 131.0000-425.0000 Iron, Total (test code = Iron, Total) 101.0000 27.0000-15 9.0000 BUN (test code = BUN) 10.0000 mg/dL 6.0000-24.0000 [id number] 13:26:00 Test Item Value Reference Range Comments WBC (test code = WBC) 4.1999 4.0000-10.0000 Lymphocytes % (test code = Lymphocytes %) 37.7000 % 22.400 0-43.6000 MID% (test code = MID%) 7.3000 % 1.2000-11.2000 Neutrophils % (test code = Neutrophils %) 55.0000 % 48.900 0-69.9000 Lymphocytes (test code = Lymphocytes) 1.5000 1.2000-3.2 000 MID (test code = MID) 0.4000 0.1000-1.1000 Neutrophils (test code = Neutrophils) 2.3000 1.5000-6.7 000 RBC (test code = RBC) 4.8800 3.7000-4.9000 HGB (test code = HGB) 13.4000 g/dL 11.2000-18.0000 HCT (test code = HCT) 44.8000 % 34.0000-44.0000 MCV (test code = MCV) 91.7000 fL 80.0000-94.0000 MCH (test code = MCH) 27.5000 pg 27.0000-34.0000 MCHC (test code = MCHC) 30.0000 g/dL 31.5000-36.0000 RDW (test code = RDW) 16.8000 11.0000-18.0000 PLT (test code = PLT) 184.0000 140.0000-440.0000 MPV (test code = MPV) 8.9000 fL 6.8000-10.6000 [id number] 13:26:00 Test Item Value Reference Range Comments PLT (test code = PLT) 184.0000 140.0000-440.0000 WBC (test code = WBC) 4.1999 4.0000-10.0000 Lymphocytes (test code = Lymphocytes) 1.5000 1.2000-3.2 000 Neutrophils (test code = Neutrophils) 2.3000 1.5000-6.7 000 MID (test code = MID) 0.4000 0.1000-1.1000 RBC (test code = RBC) 4.8800 3.7000-4.9000 RDW (test code = RDW) 16.8000 11.0000-18.0000 HCT (test code = HCT) 44.8000 % 34.0000-44.0000 Neutrophils % (test code = Neutrophils %) 55.0000 % 48.900 0-69.9000 MID% (test code = MID%) 7.3000 % 1.2000-11.2000 Lymphocytes % (test code = Lymphocytes %) 37.7000 % 22.400 0-43.6000 MCH (test code = MCH) 27.5000 pg 27.0000-34.0000 MCV (test code = MCV) 91.7000 fL 80.0000-94.0000 MPV (test code = MPV) 8.9000 fL 6.8000-10.6000 HGB (test code = HGB) 13.4000 g/dL 11.2000-18.0000 MCHC (test code = MCHC) 30.0000 g/dL 31.5000-36.0000 [id number] 15:54:00 Test Item Value Reference Range Comments Creatinine (test code = Creatinine) 0.6900 mg/dL 0.5700-1.000 0 Cr Clearance (Est) (test code = Cr 135.2500 75.0000-115.0 000 Clearance (Est)) Glucose (test code = Glucose) 104.0000 mg/dL 65.0000-99.0000 BUN (test code = BUN) 7.0000 mg/dL 6.0000-24.0000 eGFR Maf-Kagtelt-Bkwxjeyt (test code = 105.0000 eGFR Twz-Dibnggj-Hrlcdvyd) eGFR -[place] (test code = eGFR 121.0000 -[place]) BUN/Creat Ratio (test code = BUN/Creat 10.0000 9.0000-23 .0000 Ratio) Sodium (test code = Sodium) 140.0000 mmol/L 134.0000-144.0000 Potassium (test code = Potassium) 3.8000 mmol/L 3.5000-5.2000 Chloride (test code = Chloride) 100.0000 mmol/L 96.0000-106.0000 CO2 (test code = CO2) 26.0000 mmol/L 20.0000-29.0000 Calcium (test code = Calcium) 9.1000 mg/dL 8.7000-10.2000 Protein, Total (test code = Protein, 6.8000 g/dL 6.0000-8.50 00 Total) Albumin (test code = Albumin) 4.2000 g/dL 3.5000-5.5000 Globulin (test code = Globulin) 2.6000 g/dL 1.5000-4.5000 A/G Ratio (test code = A/G Ratio) 1.6000 1.2000-2.2000 Bilirubin, Total (test code = Bilirubin, 0.9000 mg/dL 0.0000- 1.2000 Total) Alkaline Phosphatase (test code = 120.0000 39.0000-117.00 00 Alkaline Phosphatase) AST (SGOT) (test code = AST (SGOT)) 32.0000 0.0000-40.00 00 ALT (SGPT) (test code = ALT (SGPT)) 16.0000 0.0000-32.00 00 Iron, Total (test code = Iron, Total) 43.0000 27.0000-15 9.0000 TIBC (test code = TIBC) 460.0000 250.0000-450.0000 UIBC (test code = UIBC) 417.0000 131.0000-425.0000 % Iron Saturation (test code = % Iron 9.0000 % 15.0000-55 .0000 Saturation) Vitamin B12 (test code = Vitamin B12) 1355.0000 pg/mL 232.0000-1 245.0000 Folate (test code = Folate) 12.9000 ng/mL Ferritin (test code = Ferritin) 15.0000 ng/mL 15.0000-150.0000 Protein, [id number] 15:54:00 Test Item Value Reference Range Comments Protein, Total (test code = Protein, 6.8000 g/dL 6.0000-8.50 00 Total) Albumin (test code = Albumin) 4.2000 g/dL 3.5000-5.5000 Globulin (test code = Globulin) 2.6000 g/dL 1.5000-4.5000 Glucose (test code = Glucose) 104.0000 mg/dL 65.0000-99.0000 Calcium (test code = Calcium) 9.1000 mg/dL 8.7000-10.2000 Creatinine (test code = Creatinine) 0.6900 mg/dL 0.5700-1.000 0 Bilirubin, Total (test code = Bilirubin, 0.9000 mg/dL 0.0000- 1.2000 Total) Vitamin B12 (test code = Vitamin B12) 1355.0000 pg/mL 232.0000-1 245.0000 Folate (test code = Folate) 12.9000 ng/mL Ferritin (test code = Ferritin) 15.0000 ng/mL 15.0000-150.0000 Cr Clearance (Est) (test code = Cr 135.2500 75.0000-115.0 000 Clearance (Est)) % Iron Saturation (test code = % Iron 9.0000 % 15.0000-55 .0000 Saturation) A/G Ratio (test code = A/G Ratio) 1.6000 1.2000-2.2000 BUN/Creat Ratio (test code = BUN/Creat 10.0000 9.0000-23 .0000 Ratio) eGFR Hik-Jonajsc-Vtcxtiou (test code = 105.0000 eGFR Dyu-Uzuubtn-Lvkkuyog) eGFR -[place] (test code = eGFR 121.0000 -[place]) Sodium (test code = Sodium) 140.0000 mmol/L 134.0000-144.0000 Potassium (test code = Potassium) 3.8000 mmol/L 3.5000-5.2000 Chloride (test code = Chloride) 100.0000 mmol/L 96.0000-106.0000 CO2 (test code = CO2) 26.0000 mmol/L 20.0000-29.0000 ALT (SGPT) (test code = ALT (SGPT)) 16.0000 0.0000-32.00 00 AST (SGOT) (test code = AST (SGOT)) 32.0000 0.0000-40.00 00 Alkaline Phosphatase (test code = 120.0000 39.0000-117.00 00 Alkaline Phosphatase) TIBC (test code = TIBC) 460.0000 250.0000-450.0000 Iron, Total (test code = Iron, Total) 43.0000 27.0000-15 9.0000 UIBC (test code = UIBC) 417.0000 131.0000-425.0000 BUN (test code = BUN) 7.0000 mg/dL 6.0000-24.0000 [id number] 12:10:00 Test Item Value Reference Range Comments WBC (test code = WBC) 4.2000 4.0000-10.0000 Lymphocytes % (test code = Lymphocytes %) 40.3000 % 22.400 0-43.6000 MID% (test code = MID%) 8.7000 % 1.2000-11.2000 Neutrophils % (test code = Neutrophils %) 51.0000 % 48.900 0-69.9000 Lymphocytes (test code = Lymphocytes) 1.7000 1.2000-3.2 000 MID (test code = MID) 0.4000 0.1000-1.1000 Neutrophils (test code = Neutrophils) 2.1000 1.5000-6.7 000 RBC (test code = RBC) 4.0300 3.7000-4.9000 HGB (test code = HGB) 10.5000 g/dL 11.2000-18.0000 HCT (test code = HCT) 34.4000 % 34.0000-44.0000 MCV (test code = MCV) 85.3000 fL 80.0000-94.0000 MCH (test code = MCH) 26.2000 pg 27.0000-34.0000 MCHC (test code = MCHC) 30.7000 g/dL 31.5000-36.0000 RDW (test code = RDW) 17.4000 11.0000-18.0000 PLT (test code = PLT) 226.0000 140.0000-440.0000 MPV (test code = MPV) 9.1000 fL 6.8000-10.6000 [id number] 13:43:00 Test Item Value Reference Range Comments Creatinine (test code = Creatinine) 0.5900 mg/dL 0.5700-1.000 0 Cr Clearance (Est) (test code = Cr 158.1800 75.0000-115.0 000 Clearance (Est)) Glucose (test code = Glucose) 92.0000 mg/dL 65.0000-99.0000 BUN (test code = BUN) 6.0000 mg/dL 6.0000-24.0000 eGFR Cht-Rodgxco-Hqmfwrav (test code = 110.0000 eGFR Bvb-Ukfnktb-Lrzbpaoo) eGFR -[place] (test code = eGFR 127.0000 -[place]) BUN/Creat Ratio (test code = BUN/Creat 10.0000 9.0000-23 .0000 Ratio) Sodium (test code = Sodium) 141.0000 mmol/L 134.0000-144.0000 Potassium (test code = Potassium) 4.5000 mmol/L 3.5000-5.2000 Chloride (test code = Chloride) 102.0000 mmol/L 96.0000-106.0000 CO2 (test code = CO2) 26.0000 mmol/L 20.0000-29.0000 Calcium (test code = Calcium) 9.2000 mg/dL 8.7000-10.2000 Protein, Total (test code = Protein, 6.6000 g/dL 6.0000-8.50 00 Total) Albumin (test code = Albumin) 3.7000 g/dL 3.5000-5.5000 Globulin (test code = Globulin) 2.9000 g/dL 1.5000-4.5000 A/G Ratio (test code = A/G Ratio) 1.3000 1.2000-2.2000 Bilirubin, Total (test code = Bilirubin, 1.0000 mg/dL 0.0000- 1.2000 Total) Alkaline Phosphatase (test code = Alkaline 126.0000 39.00 00-117.0000 Phosphatase) AST (SGOT) (test code = AST (SGOT)) 24.0000 0.0000-40.00 00 ALT (SGPT) (test code = ALT (SGPT)) 16.0000 0.0000-32.00 00 [id number] 13:43:00 Test Item Value Reference Range Comments CEA (test code = CEA) 6.5000 ng/mL 0.0000-4.7000 [id number] 13:43:00 Test Item Value Reference Range Comments Albumin (test code = Albumin) 3.7000 g/dL 3.5000-5.5000 Globulin (test code = Globulin) 2.9000 g/dL 1.5000-4.5000 Protein, Total (test code = Protein, 6.6000 g/dL 6.0000-8.50 00 Total) Bilirubin, Total (test code = Bilirubin, 1.0000 mg/dL 0.0000- 1.2000 Total) Creatinine (test code = Creatinine) 0.5900 mg/dL 0.5700-1.000 0 Calcium (test code = Calcium) 9.2000 mg/dL 8.7000-10.2000 Glucose (test code = Glucose) 92.0000 mg/dL 65.0000-99.0000 Cr Clearance (Est) (test code = Cr 158.1800 75.0000-115.0 000 Clearance (Est)) Alkaline Phosphatase (test code = Alkaline 126.0000 39.00 00-117.0000 Phosphatase) AST (SGOT) (test code = AST (SGOT)) 24.0000 0.0000-40.00 00 ALT (SGPT) (test code = ALT (SGPT)) 16.0000 0.0000-32.00 00 CO2 (test code = CO2) 26.0000 mmol/L 20.0000-29.0000 Chloride (test code = Chloride) 102.0000 mmol/L 96.0000-106.0000 Potassium (test code = Potassium) 4.5000 mmol/L 3.5000-5.2000 Sodium (test code = Sodium) 141.0000 mmol/L 134.0000-144.0000 eGFR Fhq-Srieslr-Yghosblt (test code = 110.0000 eGFR Fkt-Qfreyit-Lweenrmz) eGFR -[place] (test code = eGFR 127.0000 -[place]) A/G Ratio (test code = A/G Ratio) 1.3000 1.2000-2.2000 BUN/Creat Ratio (test code = BUN/Creat 10.0000 9.0000-23 .0000 Ratio) BUN (test code = BUN) 6.0000 mg/dL 6.0000-24.0000 [id number] 13:17:00 Test Item Value Reference Range Comments WBC (test code = WBC) 3.7000 4.0000-10.0000 Lymphocytes % (test code = Lymphocytes %) 42.7000 % 22.400 0-43.6000 MID% (test code = MID%) 8.8000 % 1.2000-11.2000 Neutrophils % (test code = Neutrophils %) 48.5000 % 48.900 0-69.9000 Lymphocytes (test code = Lymphocytes) 1.6000 1.2000-3.2 000 MID (test code = MID) 0.3000 0.1000-1.1000 Neutrophils (test code = Neutrophils) 1.8000 1.5000-6.7 000 RBC (test code = RBC) 4.3700 3.7000-4.9000 HGB (test code = HGB) 12.2000 g/dL 11.2000-18.0000 HCT (test code = HCT) 37.6000 % 34.0000-44.0000 MCV (test code = MCV) 86.0000 fL 80.0000-94.0000 MCH (test code = MCH) 28.0000 pg 27.0000-34.0000 MCHC (test code = MCHC) 32.5000 g/dL 31.5000-36.0000 RDW (test code = RDW) 17.4000 11.0000-18.0000 PLT (test code = PLT) 164.0000 140.0000-440.0000 MPV (test code = MPV) 8.3000 fL 6.8000-10.6000 [id number] 13:17:00 Test Item Value Reference Range Comments MID (test code = MID) 0.3000 0.1000-1.1000 RBC (test code = RBC) 4.3700 3.7000-4.9000 WBC (test code = WBC) 3.7000 4.0000-10.0000 PLT (test code = PLT) 164.0000 140.0000-440.0000 Lymphocytes (test code = Lymphocytes) 1.6000 1.2000-3.2 000 Neutrophils (test code = Neutrophils) 1.8000 1.5000-6.7 000 HCT (test code = HCT) 37.6000 % 34.0000-44.0000 Lymphocytes % (test code = Lymphocytes %) 42.7000 % 22.400 0-43.6000 Neutrophils % (test code = Neutrophils %) 48.5000 % 48.900 0-69.9000 RDW (test code = RDW) 17.4000 11.0000-18.0000 MID% (test code = MID%) 8.8000 % 1.2000-11.2000 MCV (test code = MCV) 86.0000 fL 80.0000-94.0000 MPV (test code = MPV) 8.3000 fL 6.8000-10.6000 MCH (test code = MCH) 28.0000 pg 27.0000-34.0000 HGB (test code = HGB) 12.2000 g/dL 11.2000-18.0000 MCHC (test code = MCHC) 32.5000 g/dL 31.5000-36.0000 Iron, [id number] 14:04:00 Test Item Value Reference Range Comments Iron, Total (test code = Iron, Total) 47.0000 27.0000-15 9.0000 TIBC (test code = TIBC) 454.0000 250.0000-450.0000 UIBC (test code = UIBC) 407.0000 131.0000-425.0000 % Iron Saturation (test code = % Iron 10.0000 % 15.0000-55 .0000 Saturation) Vitamin B12 (test code = Vitamin B12) 442.0000 pg/mL 232.0000-1 245.0000 Folate (test code = Folate) 14.0000 ng/mL Ferritin (test code = Ferritin) 58.0000 ng/mL 15.0000-150.0000 [id number] 14:04:00 Test Item Value Reference Range Comments CEA (test code = CEA) 9.7000 ng/mL 0.0000-4.7000 [id number] 14:04:00 Test Item Value Reference Range Comments Ferritin (test code = Ferritin) 58.0000 ng/mL 15.0000-150.0000 Folate (test code = Folate) 14.0000 ng/mL Vitamin B12 (test code = Vitamin B12) 442.0000 pg/mL 232.0000-1 245.0000 % Iron Saturation (test code = % Iron 10.0000 % 15.0000-55 .0000 Saturation) TIBC (test code = TIBC) 454.0000 250.0000-450.0000 UIBC (test code = UIBC) 407.0000 131.0000-425.0000 Iron, Total (test code = Iron, Total) 47.0000 27.0000-15 9.0000 [id number] 11:55:00 Test Item Value Reference Range Comments Creatinine (test code = Creatinine) 0.5000 mg/dL 0.5000-1.200 0 Cr Clearance (Est) (test code = Cr 196.7200 75.0000-115.0 000 Clearance (Est)) Glucose (test code = Glucose) 91.0000 mg/dL 70.0000-118.0000 BUN (test code = BUN) 10.0000 mg/dL 7.0000-22.0000 Sodium (test code = Sodium) 139.0000 mmol/L 128.0000-145.0000 Potassium (test code = Potassium) 3.6000 mmol/L 3.6000-5.1000 Chloride (test code = Chloride) 105.0000 mmol/L 96.0000-108.0000 CO2 (test code = CO2) 29.0000 mmol/L 18.0000-33.0000 Calcium (test code = Calcium) 9.1600 mg/dL 8.0000-10.3000 Alkaline Phosphatase (test code = Alkaline 133.0000 42.00 00-141.0000 Phosphatase) ALT (SGPT) (test code = ALT (SGPT)) 23.0000 10.0000-47.0 000 AST (SGOT) (test code = AST (SGOT)) 45.0000 11.0000-37.0 000 Bilirubin, Total (test code = Bilirubin, 1.7000 mg/dL 0.0000- 1.6000 Total) Albumin (test code = Albumin) 3.9000 g/dL 3.5000-5.5000 Protein, Total (test code = Protein, 6.6000 g/dL 6.4000-8.10 00 Total) eGFR -[place] (test code = eGFR 161.0000 60.0000- 200.0000 -[place]) eGFR Kcs-Gtybmal-Errrbdvv (test code = 133.0000 60.0000-2 00.0000 eGFR Jqr-Whyiqam-Gxsazchv) Magnesium (test code = Magnesium) 1.6000 mg/dL 1.6000-2.3000 [id number] 11:55:00 Test Item Value Reference Range Comments BUN (test code = BUN) 10.0000 mg/dL 7.0000-22.0000 Magnesium (test code = Magnesium) 1.6000 mg/dL 1.6000-2.3000 Alkaline Phosphatase (test code = Alkaline 133.0000 42.00 00-141.0000 Phosphatase) ALT (SGPT) (test code = ALT (SGPT)) 23.0000 10.0000-47.0 000 AST (SGOT) (test code = AST (SGOT)) 45.0000 11.0000-37.0 000 eGFR -[place] (test code = eGFR 161.0000 60.0000- 200.0000 -[place]) Sodium (test code = Sodium) 139.0000 mmol/L 128.0000-145.0000 Potassium (test code = Potassium) 3.6000 mmol/L 3.6000-5.1000 Chloride (test code = Chloride) 105.0000 mmol/L 96.0000-108.0000 CO2 (test code = CO2) 29.0000 mmol/L 18.0000-33.0000 Albumin (test code = Albumin) 3.9000 g/dL 3.5000-5.5000 Protein, Total (test code = Protein, 6.6000 g/dL 6.4000-8.10 00 Total) Glucose (test code = Glucose) 91.0000 mg/dL 70.0000-118.0000 Calcium (test code = Calcium) 9.1600 mg/dL 8.0000-10.3000 Creatinine (test code = Creatinine) 0.5000 mg/dL 0.5000-1.200 0 Bilirubin, Total (test code = Bilirubin, 1.7000 mg/dL 0.0000- 1.6000 Total) eGFR Dyw-Hvrvybs-Rqyetnhm (test code = 133.0000 60.0000-2 00.0000 eGFR Uvb-Spzagvj-Oiqmhmqo) Cr Clearance (Est) (test code = Cr 196.7200 75.0000-115.0 000 Clearance (Est)) [id number] 11:54:00 Test Item Value Reference Range Comments WBC (test code = WBC) 3.9000 4.0000-10.0000 Lymphocytes % (test code = Lymphocytes %) 39.6000 % 22.400 0-43.6000 MID% (test code = MID%) 9.0000 % 1.2000-11.2000 Neutrophils % (test code = Neutrophils %) 51.4000 % 48.900 0-69.9000 Lymphocytes (test code = Lymphocytes) 1.5000 1.2000-3.2 000 MID (test code = MID) 0.4000 0.1000-1.1000 Neutrophils (test code = Neutrophils) 2.0000 1.5000-6.7 000 RBC (test code = RBC) 3.5300 3.7000-4.9000 HGB (test code = HGB) 10.9000 g/dL 11.2000-18.0000 HCT (test code = HCT) 33.7000 % 34.0000-44.0000 MCV (test code = MCV) 95.6000 fL 80.0000-94.0000 MCH (test code = MCH) 30.9000 pg 27.0000-34.0000 MCHC (test code = MCHC) 32.4000 g/dL 31.5000-36.0000 RDW (test code = RDW) 16.7000 11.0000-18.0000 PLT (test code = PLT) 158.0000 140.0000-440.0000 MPV (test code = MPV) 8.8000 fL 6.8000-10.6000 [id number] 11:54:00 Test Item Value Reference Range Comments MCV (test code = MCV) 95.6000 fL 80.0000-94.0000 MPV (test code = MPV) 8.8000 fL 6.8000-10.6000 MCH (test code = MCH) 30.9000 pg 27.0000-34.0000 HGB (test code = HGB) 10.9000 g/dL 11.2000-18.0000 MCHC (test code = MCHC) 32.4000 g/dL 31.5000-36.0000 HCT (test code = HCT) 33.7000 % 34.0000-44.0000 Lymphocytes % (test code = Lymphocytes %) 39.6000 % 22.400 0-43.6000 RDW (test code = RDW) 16.7000 11.0000-18.0000 Neutrophils % (test code = Neutrophils %) 51.4000 % 48.900 0-69.9000 MID% (test code = MID%) 9.0000 % 1.1999-11.1999 MID (test code = MID) 0.4000 0.1000-1.1000 RBC (test code = RBC) 3.5300 3.7000-4.9000 Lymphocytes (test code = Lymphocytes) 1.5000 1.2000-3.2 000 Neutrophils (test code = Neutrophils) 2.0000 1.5000-6.7 000 WBC (test code = WBC) 3.9000 4.0000-10.0000 PLT (test code = PLT) 158.0000 140.0000-440.0000 [id number] 13:14:00 Test Item Value Reference Range Comments WBC (test code = WBC) 5.7000 4.0000-10.0000 Lymphocytes % (test code = Lymphocytes %) 22.7000 % 22.400 0-43.6000 MID% (test code = MID%) 5.2000 % 1.2000-11.1999 Neutrophils % (test code = Neutrophils %) 72.1000 % 48.900 0-69.9000 Lymphocytes (test code = Lymphocytes) 1.3000 1.2000-3.2 000 MID (test code = MID) 0.3000 0.1000-1.1000 Neutrophils (test code = Neutrophils) 4.1000 1.5000-6.7 000 RBC (test code = RBC) 3.5100 3.7000-4.9000 HGB (test code = HGB) 10.8000 g/dL 11.1999-18.0000 HCT (test code = HCT) 34.7000 % 34.0000-44.0000 MCV (test code = MCV) 98.7000 fL 80.0000-94.0000 MCH (test code = MCH) 30.9000 pg 27.0000-34.0000 MCHC (test code = MCHC) 31.3000 g/dL 31.5000-36.0000 RDW (test code = RDW) 17.7000 11.0000-18.0000 PLT (test code = PLT) 93.0000 140.0000-440.0000 MPV (test code = MPV) 9.9000 fL 6.8000-10.6000 [id number] 13:14:00 Test Item Value Reference Range Comments PLT (test code = PLT) 93.0000 140.0000-440.0000 WBC (test code = WBC) 5.7000 4.0000-10.0000 Neutrophils (test code = Neutrophils) 4.1000 1.5000-6.7 000 Lymphocytes (test code = Lymphocytes) 1.3000 1.2000-3.2 000 RBC (test code = RBC) 3.5100 3.7000-4.9000 MID (test code = MID) 0.3000 0.1000-1.1000 MID% (test code = MID%) 5.2000 % 1.2000-11.2000 Neutrophils % (test code = Neutrophils %) 72.1000 % 48.900 0-69.9000 RDW (test code = RDW) 17.7000 11.0000-18.0000 Lymphocytes % (test code = Lymphocytes %) 22.7000 % 22.400 0-43.6000 HCT (test code = HCT) 34.7000 % 34.0000-44.0000 MCHC (test code = MCHC) 31.3000 g/dL 31.5000-36.0000 HGB (test code = HGB) 10.8000 g/dL 11.2000-18.0000 MCH (test code = MCH) 30.9000 pg 27.0000-34.0000 MPV (test code = MPV) 9.9000 fL 6.8000-10.6000 MCV (test code = MCV) 98.7000 fL 80.0000-94.0000 [id number] 16:04:00 Test Item Value Reference Range Comments WBC (test code = WBC) 5.4000 4.0000-10.0000 Lymphocytes % (test code = Lymphocytes %) 31.2000 % 22.400 0-43.6000 MID% (test code = MID%) 7.1000 % 1.2000-11.2000 Neutrophils % (test code = Neutrophils %) 61.7000 % 48.900 0-69.9000 Lymphocytes (test code = Lymphocytes) 1.7000 1.2000-3.2 000 MID (test code = MID) 0.4000 0.1000-1.1000 Neutrophils (test code = Neutrophils) 3.3000 1.5000-6.7 000 RBC (test code = RBC) 3.3800 3.7000-4.9000 HGB (test code = HGB) 10.5000 g/dL 11.2000-18.0000 HCT (test code = HCT) 32.2000 % 34.0000-44.0000 MCV (test code = MCV) 95.2000 fL 80.0000-94.0000 MCH (test code = MCH) 31.1000 pg 27.0000-34.0000 MCHC (test code = MCHC) 32.7000 g/dL 31.5000-36.0000 RDW (test code = RDW) 17.5000 11.0000-18.0000 PLT (test code = PLT) 120.0000 140.0000-440.0000 MPV (test code = MPV) 8.9000 fL 6.8000-10.6000 [id number] 16:04:00 Test Item Value Reference Range Comments MCV (test code = MCV) 95.2000 fL 80.0000-94.0000 MPV (test code = MPV) 8.9000 fL 6.8000-10.6000 MCH (test code = MCH) 31.1000 pg 27.0000-34.0000 MCHC (test code = MCHC) 32.7000 g/dL 31.5000-36.0000 HGB (test code = HGB) 10.5000 g/dL 11.2000-18.0000 HCT (test code = HCT) 32.2000 % 34.0000-44.0000 Lymphocytes % (test code = Lymphocytes %) 31.2000 % 22.400 0-43.6000 RDW (test code = RDW) 17.5000 11.0000-18.0000 Neutrophils % (test code = Neutrophils %) 61.7000 % 48.900 0-69.9000 MID% (test code = MID%) 7.1000 % 1.2000-11.2000 MID (test code = MID) 0.4000 0.1000-1.1000 RBC (test code = RBC) 3.3800 3.7000-4.9000 Lymphocytes (test code = Lymphocytes) 1.7000 1.2000-3.2 000 Neutrophils (test code = Neutrophils) 3.3000 1.5000-6.7 000 PLT (test code = PLT) 120.0000 140.0000-440.0000 WBC (test code = WBC) 5.4000 4.0000-10.0000 T4, [id number] 14:30:00 Test Item Value Reference Range Comments T4, Free (test code = T4, Free) 2.1000 ng/dL 0.8200-1.7700 TSH (test code = TSH) 2.0500 0.4500-4.5000 T3, Free (test code = T3, Free) 3.1000 pg/mL 2.0000-4.4000 [id number] 14:30:00 Test Item Value Reference Range Comments TSH (test code = TSH) 2.0500 0.4500-4.5000 T4, Free (test code = T4, Free) 2.1000 ng/dL 0.8200-1.7700 T3, Free (test code = T3, Free) 3.1000 pg/mL 2.0000-4.4000 [id number] 11:38:00 Test Item Value Reference Range Comments WBC (test code = WBC) 4.5000 4.0000-10.0000 Lymphocytes % (test code = Lymphocytes %) 35.9000 % 22.400 0-43.6000 MID% (test code = MID%) 9.5000 % 1.2000-11.2000 Neutrophils % (test code = Neutrophils %) 54.6000 % 48.900 0-69.9000 Lymphocytes (test code = Lymphocytes) 1.6000 1.2000-3.2 000 MID (test code = MID) 0.5000 0.1000-1.1000 Neutrophils (test code = Neutrophils) 2.4000 1.5000-6.7 000 RBC (test code = RBC) 3.5300 3.7000-4.9000 HGB (test code = HGB) 10.4000 g/dL 11.2000-18.0000 HCT (test code = HCT) 33.9000 % 34.0000-44.0000 MCV (test code = MCV) 96.2000 fL 80.0000-94.0000 MCH (test code = MCH) 29.6000 pg 27.0000-34.0000 MCHC (test code = MCHC) 30.8000 g/dL 31.5000-36.0000 RDW (test code = RDW) 17.6000 11.0000-18.0000 PLT (test code = PLT) 166.0000 140.0000-440.0000 MPV (test code = MPV) 8.8000 fL 6.8000-10.6000 [id number] 11:38:00 Test Item Value Reference Range Comments Creatinine (test code = Creatinine) 0.5000 mg/dL 0.5000-1.200 0 Cr Clearance (Est) (test code = Cr 197.3200 75.0000-115.0 000 Clearance (Est)) Glucose (test code = Glucose) 76.0000 mg/dL 70.0000-118.0000 BUN (test code = BUN) 7.0000 mg/dL 7.0000-22.0000 Sodium (test code = Sodium) 141.0000 mmol/L 128.0000-145.0000 Potassium (test code = Potassium) 3.7000 mmol/L 3.6000-5.1000 Chloride (test code = Chloride) 104.0000 mmol/L 96.0000-108.0000 CO2 (test code = CO2) 28.0000 mmol/L 18.0000-33.0000 Calcium (test code = Calcium) 9.5200 mg/dL 8.0000-10.3000 Alkaline Phosphatase (test code = Alkaline 113.0000 42.00 00-141.0000 Phosphatase) ALT (SGPT) (test code = ALT (SGPT)) 20.0000 10.0000-47.0 000 AST (SGOT) (test code = AST (SGOT)) 38.0000 11.0000-37.0 000 Bilirubin, Total (test code = Bilirubin, 1.2000 mg/dL 0.0000- 1.6000 Total) Albumin (test code = Albumin) 3.8000 g/dL 3.5000-5.5000 Protein, Total (test code = Protein, 6.4000 g/dL 6.4000-8.10 00 Total) eGFR -[place] (test code = eGFR 161.0000 60.0000- 200.0000 -[place]) eGFR Wva-Cgdkshk-Hgtuowcv (test code = 133.0000 60.0000-2 00.0000 eGFR Hdi-Wmvwtsm-Lhusnmtr) Magnesium (test code = Magnesium) 1.7000 mg/dL 1.6000-2.3000 [id number] 11:38:00 Test Item Value Reference Range Comments MID% (test code = MID%) 9.5000 % 1.2000-11.1999 Neutrophils % (test code = Neutrophils %) 54.6000 % 48.900 0-69.9000 RDW (test code = RDW) 17.6000 11.0000-18.0000 Lymphocytes % (test code = Lymphocytes %) 35.9000 % 22.400 0-43.6000 HCT (test code = HCT) 33.9000 % 34.0000-44.0000 HGB (test code = HGB) 10.4000 g/dL 11.2000-18.0000 MCH (test code = MCH) 29.6000 pg 27.0000-34.0000 MPV (test code = MPV) 8.8000 fL 6.8000-10.6000 MCHC (test code = MCHC) 30.8000 g/dL 31.5000-36.0000 MCV (test code = MCV) 96.2000 fL 80.0000-94.0000 WBC (test code = WBC) 4.5000 4.0000-10.0000 PLT (test code = PLT) 166.0000 140.0000-440.0000 Neutrophils (test code = Neutrophils) 2.4000 1.5000-6.7 000 MID (test code = MID) 0.5000 0.1000-1.1000 Lymphocytes (test code = Lymphocytes) 1.6000 1.2000-3.2 000 RBC (test code = RBC) 3.5300 3.7000-4.9000 Alkaline [id number] 11:38:00 Test Item Value Reference Range Comments Alkaline Phosphatase (test code = Alkaline 113.0000 42.00 00-141.0000 Phosphatase) AST (SGOT) (test code = AST (SGOT)) 38.0000 11.0000-37.0 000 ALT (SGPT) (test code = ALT (SGPT)) 20.0000 10.0000-47.0 000 CO2 (test code = CO2) 28.0000 mmol/L 18.0000-33.0000 Chloride (test code = Chloride) 104.0000 mmol/L 96.0000-108.0000 Potassium (test code = Potassium) 3.7000 mmol/L 3.6000-5.1000 Sodium (test code = Sodium) 141.0000 mmol/L 128.0000-145.0000 eGFR -[place] (test code = eGFR 161.0000 60.0000- 200.0000 -[place]) Albumin (test code = Albumin) 3.8000 g/dL 3.5000-5.5000 Bilirubin, Total (test code = Bilirubin, 1.2000 mg/dL 0.0000- 1.6000 Total) Creatinine (test code = Creatinine) 0.5000 mg/dL 0.5000-1.200 0 Calcium (test code = Calcium) 9.5200 mg/dL 8.0000-10.3000 Glucose (test code = Glucose) 76.0000 mg/dL 70.0000-118.0000 Protein, Total (test code = Protein, 6.4000 g/dL 6.4000-8.10 00 Total) Cr Clearance (Est) (test code = Cr 197.3200 75.0000-115.0 000 Clearance (Est)) eGFR Wkh-Ledvxna-Zbhalxpk (test code = 133.0000 60.0000-2 00.0000 eGFR Tma-Apphdgm-Tcwbypbz) Magnesium (test code = Magnesium) 1.7000 mg/dL 1.6000-2.3000 BUN (test code = BUN) 7.0000 mg/dL 7.0000-22.0000 [id number] 12:42:00 Test Item Value Reference Range Comments WBC (test code = WBC) 3.4000 4.0000-10.0000 Lymphocytes % (test code = Lymphocytes %) 32.1000 % 22.400 0-43.6000 MID% (test code = MID%) 8.1000 % 1.2000-11.2000 Neutrophils % (test code = Neutrophils %) 59.8000 % 48.900 0-69.9000 Lymphocytes (test code = Lymphocytes) 1.1000 1.2000-3.2 000 MID (test code = MID) 0.3000 0.1000-1.1000 Neutrophils (test code = Neutrophils) 2.0000 1.5000-6.7 000 RBC (test code = RBC) 3.3500 3.7000-4.9000 HGB (test code = HGB) 10.2000 g/dL 11.2000-18.0000 HCT (test code = HCT) 31.5000 % 34.0000-44.0000 MCV (test code = MCV) 93.9000 fL 80.0000-94.0000 MCH (test code = MCH) 30.4000 pg 27.0000-34.0000 MCHC (test code = MCHC) 32.3000 g/dL 31.5000-36.0000 RDW (test code = RDW) 17.2000 11.0000-18.0000 PLT (test code = PLT) 89.0000 140.0000-440.0000 MPV (test code = MPV) 9.7000 fL 6.8000-10.6000 [id number] 12:42:00 Test Item Value Reference Range Comments MID (test code = MID) 0.3000 0.1000-1.1000 RBC (test code = RBC) 3.3500 3.7000-4.9000 Lymphocytes (test code = Lymphocytes) 1.1000 1.2000-3.2 000 Neutrophils (test code = Neutrophils) 2.0000 1.5000-6.7 000 PLT (test code = PLT) 89.0000 140.0000-440.0000 WBC (test code = WBC) 3.4000 4.0000-10.0000 MCV (test code = MCV) 93.9000 fL 80.0000-94.0000 MPV (test code = MPV) 9.7000 fL 6.8000-10.6000 MCH (test code = MCH) 30.4000 pg 27.0000-34.0000 MCHC (test code = MCHC) 32.3000 g/dL 31.5000-36.0000 HGB (test code = HGB) 10.2000 g/dL 11.2000-18.0000 HCT (test code = HCT) 31.5000 % 34.0000-44.0000 Lymphocytes % (test code = Lymphocytes %) 32.1000 % 22.400 0-43.6000 RDW (test code = RDW) 17.2000 11.0000-18.0000 Neutrophils % (test code = Neutrophils %) 59.8000 % 48.900 0-69.9000 MID% (test code = MID%) 8.1000 % 1.1999-11.1999 [id number] 12:14:00 Test Item Value Reference Range Comments WBC (test code = WBC) 4.8000 4.0000-10.0000 Lymphocytes % (test code = Lymphocytes %) 39.1000 % 22.400 0-43.6000 MID% (test code = MID%) 10.5000 % 1.1999-11.2000 Neutrophils % (test code = Neutrophils %) 50.4000 % 48.900 0-69.9000 Lymphocytes (test code = Lymphocytes) 1.8000 1.2000-3.2 000 MID (test code = MID) 0.6000 0.1000-1.1000 Neutrophils (test code = Neutrophils) 2.4000 1.5000-6.7 000 RBC (test code = RBC) 4.0300 3.7000-4.9000 HGB (test code = HGB) 11.7000 g/dL 11.2000-18.0000 HCT (test code = HCT) 37.9000 % 34.0000-44.0000 MCV (test code = MCV) 94.1000 fL 80.0000-94.0000 MCH (test code = MCH) 29.2000 pg 27.0000-34.0000 MCHC (test code = MCHC) 31.0000 g/dL 31.5000-36.0000 RDW (test code = RDW) 17.4000 11.0000-18.0000 PLT (test code = PLT) 129.0000 140.0000-440.0000 MPV (test code = MPV) 8.3000 fL 6.8000-10.6000 [id number] 12:14:00 Test Item Value Reference Range Comments MID% (test code = MID%) 10.5000 % 1.2000-11.2000 Neutrophils % (test code = Neutrophils %) 50.4000 % 48.900 0-69.9000 RDW (test code = RDW) 17.4000 11.0000-18.0000 Lymphocytes % (test code = Lymphocytes %) 39.1000 % 22.400 0-43.6000 HCT (test code = HCT) 37.9000 % 34.0000-44.0000 HGB (test code = HGB) 11.7000 g/dL 11.2000-18.0000 MCHC (test code = MCHC) 31.0000 g/dL 31.5000-36.0000 MCH (test code = MCH) 29.2000 pg 27.0000-34.0000 MPV (test code = MPV) 8.3000 fL 6.8000-10.6000 MCV (test code = MCV) 94.1000 fL 80.0000-94.0000 WBC (test code = WBC) 4.8000 4.0000-10.0000 PLT (test code = PLT) 129.0000 140.0000-440.0000 Neutrophils (test code = Neutrophils) 2.4000 1.5000-6.7 000 Lymphocytes (test code = Lymphocytes) 1.8000 1.2000-3.2 000 RBC (test code = RBC) 4.0300 3.7000-4.9000 MID (test code = MID) 0.6000 0.1000-1.1000 [id number] 11:51:00 Test Item Value Reference Range Comments Creatinine (test code = Creatinine) 0.6000 mg/dL 0.5000-1.200 0 Cr Clearance (Est) (test code = Cr 160.2400 75.0000-115.0 000 Clearance (Est)) Glucose (test code = Glucose) 93.0000 mg/dL 70.0000-118.0000 BUN (test code = BUN) 5.0000 mg/dL 7.0000-22.0000 Sodium (test code = Sodium) 141.0000 mmol/L 128.0000-145.0000 Potassium (test code = Potassium) 3.5000 mmol/L 3.6000-5.1000 Chloride (test code = Chloride) 103.0000 mmol/L 96.0000-108.0000 CO2 (test code = CO2) 29.0000 mmol/L 18.0000-33.0000 Calcium (test code = Calcium) 8.6100 mg/dL 8.0000-10.3000 Alkaline Phosphatase (test code = Alkaline 94.0000 42.00 00-141.0000 Phosphatase) ALT (SGPT) (test code = ALT (SGPT)) 17.0000 10.0000-47.0 000 AST (SGOT) (test code = AST (SGOT)) 34.0000 11.0000-37.0 000 Bilirubin, Total (test code = Bilirubin, 1.0000 mg/dL 0.0000- 1.6000 Total) Albumin (test code = Albumin) 3.7000 g/dL 3.5000-5.5000 Protein, Total (test code = Protein, 6.6000 g/dL 6.4000-8.10 00 Total) eGFR -[place] (test code = eGFR 130.0000 60.0000- 200.0000 -[place]) eGFR Wqi-Jfkjlrd-Lthwsgyi (test code = 108.0000 60.0000-2 00.0000 eGFR Aef-Pffoqpp-Srorwfvv) [id number] 11:51:00 Test Item Value Reference Range Comments BUN (test code = BUN) 5.0000 mg/dL 7.0000-22.0000 Cr Clearance (Est) (test code = Cr 160.2400 75.0000-115.0 000 Clearance (Est)) eGFR Pfw-Nnjkdwj-Zlaqoupa (test code = 108.0000 60.0000-2 00.0000 eGFR Jvj-Mfhwedm-Pobgnixj) Albumin (test code = Albumin) 3.7000 g/dL 3.5000-5.5000 Protein, Total (test code = Protein, 6.6000 g/dL 6.4000-8.10 00 Total) Glucose (test code = Glucose) 93.0000 mg/dL 70.0000-118.0000 Calcium (test code = Calcium) 8.6100 mg/dL 8.0000-10.3000 Creatinine (test code = Creatinine) 0.6000 mg/dL 0.5000-1.200 0 Bilirubin, Total (test code = Bilirubin, 1.0000 mg/dL 0.0000- 1.6000 Total) Alkaline Phosphatase (test code = Alkaline 94.0000 42.00 00-141.0000 Phosphatase) ALT (SGPT) (test code = ALT (SGPT)) 17.0000 10.0000-47.0 000 AST (SGOT) (test code = AST (SGOT)) 34.0000 11.0000-37.0 000 eGFR -[place] (test code = eGFR 130.0000 60.0000- 200.0000 -[place]) Sodium (test code = Sodium) 141.0000 mmol/L 128.0000-145.0000 Potassium (test code = Potassium) 3.5000 mmol/L 3.6000-5.1000 Chloride (test code = Chloride) 103.0000 mmol/L 96.0000-108.0000 CO2 (test code = CO2) 29.0000 mmol/L 18.0000-33.0000 [id number] 11:50:00 Test Item Value Reference Range Comments WBC (test code = WBC) 3.8000 4.0000-10.0000 Lymphocytes % (test code = Lymphocytes %) 38.5000 % 22.400 0-43.6000 MID% (test code = MID%) 12.4000 % 1.2000-11.1999 Neutrophils % (test code = Neutrophils %) 49.1000 % 48.900 0-69.9000 Lymphocytes (test code = Lymphocytes) 1.4000 1.2000-3.2 000 MID (test code = MID) 0.6000 0.1000-1.1000 Neutrophils (test code = Neutrophils) 1.8000 1.5000-6.7 000 RBC (test code = RBC) 3.1900 3.7000-4.9000 HGB (test code = HGB) 10.8000 g/dL 11.2000-18.0000 HCT (test code = HCT) 30.0000 % 34.0000-44.0000 MCV (test code = MCV) 94.0000 fL 80.0000-94.0000 MCH (test code = MCH) 33.9000 pg 27.0000-34.0000 MCHC (test code = MCHC) 36.1000 g/dL 31.5000-36.0000 RDW (test code = RDW) 18.1999 11.0000-18.0000 PLT (test code = PLT) 172.0000 140.0000-440.0000 MPV (test code = MPV) 8.5000 fL 6.8000-10.6000 [id number] 11:50:00 Test Item Value Reference Range Comments MID% (test code = MID%) 12.4000 % .1999- HCT (test code = HCT) 30.0000 % 34.0000-44.0000 Lymphocytes % (test code = Lymphocytes %) 38.5000 % 22.400 0-43.6000 RDW (test code = RDW) 11.0000-18.0000 Neutrophils % (test code = Neutrophils %) 49.1000 % 48.900 0-69.9000 MCHC (test code = MCHC) 36.1000 g/dL 31.5000-36.0000 HGB (test code = HGB) 10.8000 g/dL .1999-18.0000 MCH (test code = MCH) 33.9000 pg 27.0000-34.0000 MCV (test code = MCV) 94.0000 fL 80.0000-94.0000 MPV (test code = MPV) 8.5000 fL 6.8000-10.6000 MID (test code = MID) 0.6000 0.1000-1.1000 RBC (test code = RBC) 3.1900 3.7000-4.9000 Lymphocytes (test code = Lymphocytes) 1.4000 1.2000-3.2 000 Neutrophils (test code = Neutrophils) 1.8000 1.5000-6.7 000 PLT (test code = PLT) 172.0000 140.0000-440.0000 WBC (test code = WBC) 3.8000 4.0000-10.0000 [id number] 15:37:00 Test Item Value Reference Range Comments WBC (test code = WBC) 5.1000 4.0000-10.0000 Lymphocytes % (test code = Lymphocytes %) 37.6000 % 22.400 0-43.6000 MID% (test code = MID%) 8.6000 % .1999- Neutrophils % (test code = Neutrophils %) 53.8000 % 48.900 0-69.9000 Lymphocytes (test code = Lymphocytes) 1.9000 1.2000-3.2 000 MID (test code = MID) 0.5000 0.1000-1.1000 Neutrophils (test code = Neutrophils) 2.7000 1.5000-6.7 000 RBC (test code = RBC) 3.6000 3.7000-4.9000 HGB (test code = HGB) 10.5000 g/dL 11.2000-18.0000 HCT (test code = HCT) 33.5000 % 34.0000-44.0000 MCV (test code = MCV) 93.1000 fL 80.0000-94.0000 MCH (test code = MCH) 29.1000 pg 27.0000-34.0000 MCHC (test code = MCHC) 31.3000 g/dL 31.5000-36.0000 RDW (test code = RDW) 18.7000 11.0000-18.0000 PLT (test code = PLT) 113.0000 140.0000-440.0000 MPV (test code = MPV) 9.4000 fL 6.8000-10.6000 [id number] 12:45:00 Test Item Value Reference Range Comments Magnesium (test code = Magnesium) 1.6000 mg/dL 1.6000-2.3000 [id number] 11:31:00 Test Item Value Reference Range Comments WBC (test code = WBC) 3.4000 4.0000-10.0000 Lymphocytes % (test code = Lymphocytes %) 41.1000 % 22.400 0-43.6000 MID% (test code = MID%) 12.3000 % 1.2000-11.2000 Neutrophils % (test code = Neutrophils %) 46.6000 % 48.900 0-69.9000 Lymphocytes (test code = Lymphocytes) 1.4000 1.2000-3.2 000 MID (test code = MID) 0.4000 0.1000-1.1000 Neutrophils (test code = Neutrophils) 1.6000 1.5000-6.7 000 RBC (test code = RBC) 3.7900 3.7000-4.9000 HGB (test code = HGB) 10.9000 g/dL 11.2000-18.0000 HCT (test code = HCT) 35.3000 % 34.0000-44.0000 MCV (test code = MCV) 93.1000 fL 80.0000-94.0000 MCH (test code = MCH) 28.7000 pg 27.0000-34.0000 MCHC (test code = MCHC) 30.8000 g/dL 31.5000-36.0000 RDW (test code = RDW) 19.0000 11.0000-18.0000 PLT (test code = PLT) 154.0000 140.0000-440.0000 MPV (test code = MPV) 8.8000 fL 6.8000-10.6000 [id number] 11:31:00 Test Item Value Reference Range Comments Creatinine (test code = Creatinine) 0.5000 mg/dL 0.5000-1.200 0 Cr Clearance (Est) (test code = Cr 196.3100 75.0000-115.0 000 Clearance (Est)) Glucose (test code = Glucose) 141.0000 mg/dL 70.0000-118.0000 BUN (test code = BUN) 5.0000 mg/dL 7.0000-22.0000 Sodium (test code = Sodium) 142.0000 mmol/L 128.0000-145.0000 Potassium (test code = Potassium) 3.7000 mmol/L 3.6000-5.1000 Chloride (test code = Chloride) 103.0000 mmol/L 96.0000-108.0000 CO2 (test code = CO2) 29.0000 mmol/L 18.0000-33.0000 Calcium (test code = Calcium) 8.9000 mg/dL 8.0000-10.3000 Alkaline Phosphatase (test code = Alkaline 100.0000 42.00 00-141.0000 Phosphatase) ALT (SGPT) (test code = ALT (SGPT)) 28.0000 10.0000-47.0 000 AST (SGOT) (test code = AST (SGOT)) 36.0000 11.0000-37.0 000 Bilirubin, Total (test code = Bilirubin, 0.8000 mg/dL 0.0000- 1.6000 Total) Albumin (test code = Albumin) 3.9000 g/dL 3.5000-5.5000 Protein, Total (test code = Protein, 6.3000 g/dL 6.4000-8.10 00 Total) eGFR -[place] (test code = eGFR 161.0000 60.0000- 200.0000 -[place]) eGFR Uwb-Jtbesrr-Kzkzymxp (test code = 133.0000 60.0000-2 00.0000 eGFR Okd-Xzmptka-Mpgeoeag) [id number] 11:31:00 Test Item Value Reference Range Comments BUN (test code = BUN) 5.0000 mg/dL 7.0000-22.0000 Alkaline Phosphatase (test code = Alkaline 100.0000 42.00 00-141.0000 Phosphatase) AST (SGOT) (test code = AST (SGOT)) 36.0000 11.0000-37.0 000 ALT (SGPT) (test code = ALT (SGPT)) 28.0000 10.0000-47.0 000 CO2 (test code = CO2) 29.0000 mmol/L 18.0000-33.0000 Chloride (test code = Chloride) 103.0000 mmol/L 96.0000-108.0000 Potassium (test code = Potassium) 3.7000 mmol/L 3.6000-5.1000 Sodium (test code = Sodium) 142.0000 mmol/L 128.0000-145.0000 eGFR -[place] (test code = eGFR 161.0000 60.0000- 200.0000 -[place]) Albumin (test code = Albumin) 3.9000 g/dL 3.5000-5.5000 Bilirubin, Total (test code = Bilirubin, 0.8000 mg/dL 0.0000- 1.6000 Total) Creatinine (test code = Creatinine) 0.5000 mg/dL 0.5000-1.200 0 Calcium (test code = Calcium) 8.9000 mg/dL 8.0000-10.3000 Protein, Total (test code = Protein, 6.3000 g/dL 6.4000-8.10 00 Total) Glucose (test code = Glucose) 141.0000 mg/dL 70.0000-118.0000 eGFR Rxb-Chdzoye-Uoolwyuh (test code = 133.0000 60.0000-2 00.0000 eGFR Sib-Ocxfepv-Qbducfrf) Cr Clearance (Est) (test code = Cr 196.3100 75.0000-115.0 000 Clearance (Est)) [id number] 11:30:00 Test Item Value Reference Range Comments WBC (test code = WBC) 3.5000 4.0000-10.0000 Lymphocytes % (test code = Lymphocytes %) 35.6000 % 22.400 0-43.6000 MID% (test code = MID%) 11.5000 % 1.2000-11.1999 Neutrophils % (test code = Neutrophils %) 52.9000 % 48.900 0-69.9000 Lymphocytes (test code = Lymphocytes) 1.2000 1.2000-3.2 000 MID (test code = MID) 0.5000 0.1000-1.1000 Neutrophils (test code = Neutrophils) 1.8000 1.5000-6.7 000 RBC (test code = RBC) 3.7100 3.7000-4.9000 HGB (test code = HGB) 10.7000 g/dL 11.2000-18.0000 HCT (test code = HCT) 34.1000 % 34.0000-44.0000 MCV (test code = MCV) 91.8000 fL 80.0000-94.0000 MCH (test code = MCH) 28.8000 pg 27.0000-34.0000 MCHC (test code = MCHC) 31.4000 g/dL 31.5000-36.0000 RDW (test code = RDW) 20.4000 11.0000-18.0000 PLT (test code = PLT) 71.0000 140.0000-440.0000 MPV (test code = MPV) 8.4000 fL 6.8000-10.6000 [id number] 11:30:00 Test Item Value Reference Range Comments MCHC (test code = MCHC) 31.4000 g/dL 31.5000-36.0000 MPV (test code = MPV) 8.4000 fL 6.8000-10.6000 MCV (test code = MCV) 91.8000 fL 80.0000-94.0000 MCH (test code = MCH) 28.8000 pg 27.0000-34.0000 HGB (test code = HGB) 10.7000 g/dL 11.2000-18.0000 Neutrophils % (test code = Neutrophils %) 52.9000 % 48.900 0-69.9000 RDW (test code = RDW) 20.4000 11.0000-18.0000 Lymphocytes % (test code = Lymphocytes %) 35.6000 % 22.400 0-43.6000 HCT (test code = HCT) 34.1000 % 34.0000-44.0000 MID% (test code = MID%) 11.5000 % 1.2000-11.2000 RBC (test code = RBC) 3.7100 3.7000-4.9000 MID (test code = MID) 0.5000 0.1000-1.1000 Neutrophils (test code = Neutrophils) 1.8000 1.5000-6.7 000 Lymphocytes (test code = Lymphocytes) 1.2000 1.2000-3.2 000 PLT (test code = PLT) 71.0000 140.0000-440.0000 WBC (test code = WBC) 3.5000 4.0000-10.0000 [id number] 12:34:00 Test Item Value Reference Range Comments WBC (test code = WBC) 3.5000 4.0000-10.0000 Lymphocytes % (test code = Lymphocytes %) 47.5000 % 22.400 0-43.6000 MID% (test code = MID%) 10.0000 % 1.1999-11.1999 Neutrophils % (test code = Neutrophils %) 42.5000 % 48.900 0-69.9000 Lymphocytes (test code = Lymphocytes) 1.6000 1.2000-3.2 000 MID (test code = MID) 0.4000 0.1000-1.1000 Neutrophils (test code = Neutrophils) 1.5000 1.5000-6.7 000 RBC (test code = RBC) 3.7800 3.7000-4.9000 HGB (test code = HGB) 11.1000 g/dL 11.2000-18.0000 HCT (test code = HCT) 34.2000 % 34.0000-44.0000 MCV (test code = MCV) 90.6000 fL 80.0000-94.0000 MCH (test code = MCH) 29.5000 pg 27.0000-34.0000 MCHC (test code = MCHC) 32.6000 g/dL 31.5000-36.0000 RDW (test code = RDW) 21.1000 11.0000-18.0000 PLT (test code = PLT) 148.0000 140.0000-440.0000 MPV (test code = MPV) 8.3000 fL 6.8000-10.6000 [id number] 12:34:00 Test Item Value Reference Range Comments PLT (test code = PLT) 148.0000 140.0000-440.0000 WBC (test code = WBC) 3.5000 4.0000-10.0000 Lymphocytes (test code = Lymphocytes) 1.6000 1.2000-3.2 000 Neutrophils (test code = Neutrophils) 1.5000 1.5000-6.7 000 MID (test code = MID) 0.4000 0.1000-1.1000 RBC (test code = RBC) 3.7800 3.7000-4.9000 MID% (test code = MID%) 10.0000 % 1.1999-11.1999 HCT (test code = HCT) 34.2000 % 34.0000-44.0000 Lymphocytes % (test code = Lymphocytes %) 47.5000 % 22.400 0-43.6000 Neutrophils % (test code = Neutrophils %) 42.5000 % 48.900 0-69.9000 RDW (test code = RDW) 21.1000 11.0000-18.0000 HGB (test code = HGB) 11.1000 g/dL 11.2000-18.0000 MCH (test code = MCH) 29.5000 pg 27.0000-34.0000 MCV (test code = MCV) 90.6000 fL 80.0000-94.0000 MPV (test code = MPV) 8.3000 fL 6.8000-10.6000 MCHC (test code = MCHC) 32.6000 g/dL 31.5000-36.0000 [id number] 12:33:00 Test Item Value Reference Range Comments Creatinine (test code = Creatinine) 0.6000 mg/dL 0.5000-1.200 0 Cr Clearance (Est) (test code = Cr 163.2600 75.0000-115.0 000 Clearance (Est)) Glucose (test code = Glucose) 107.0000 mg/dL 70.0000-118.0000 BUN (test code = BUN) 6.0000 mg/dL 7.0000-22.0000 Sodium (test code = Sodium) 136.0000 mmol/L 128.0000-145.0000 Potassium (test code = Potassium) 3.6000 mmol/L 3.6000-5.1000 Chloride (test code = Chloride) 106.0000 mmol/L 96.0000-108.0000 CO2 (test code = CO2) 27.0000 mmol/L 18.0000-33.0000 Calcium (test code = Calcium) 8.3200 mg/dL 8.0000-10.3000 Alkaline Phosphatase (test code = Alkaline 80.0000 42.00 00-141.0000 Phosphatase) ALT (SGPT) (test code = ALT (SGPT)) 49.0000 10.0000-47.0 000 AST (SGOT) (test code = AST (SGOT)) 52.0000 11.0000-37.0 000 Bilirubin, Total (test code = Bilirubin, 0.5000 mg/dL 0.0000- 1.6000 Total) Albumin (test code = Albumin) 4.1000 g/dL 3.5000-5.5000 Protein, Total (test code = Protein, 6.4000 g/dL 6.4000-8.10 00 Total) eGFR -[place] (test code = eGFR 130.0000 60.0000- 200.0000 -[place]) eGFR Ppq-Ydsbovc-Sfjjhmra (test code = 108.0000 60.0000-2 00.0000 eGFR [id number]-Puthvxxf) Cr Clearance (Est)2018-04-26 12:33:00 Test Item Value Reference Range Comments Cr Clearance (Est) (test code = Cr 163.2600 75.0000-115.0 000 Clearance (Est)) eGFR Aoy-Zokfcds-Tagzmgxh (test code = 108.0000 60.0000-2 00.0000 eGFR Uzw-Kfqfqzs-Iajeiryj) Albumin (test code = Albumin) 4.1000 g/dL 3.5000-5.5000 Glucose (test code = Glucose) 107.0000 mg/dL 70.0000-118.0000 Protein, Total (test code = Protein, 6.4000 g/dL 6.4000-8.10 00 Total) Creatinine (test code = Creatinine) 0.6000 mg/dL 0.5000-1.200 0 Calcium (test code = Calcium) 8.3200 mg/dL 8.0000-10.3000 Bilirubin, Total (test code = Bilirubin, 0.5000 mg/dL 0.0000- 1.6000 Total) Alkaline Phosphatase (test code = Alkaline 80.0000 42.00 00-141.0000 Phosphatase) ALT (SGPT) (test code = ALT (SGPT)) 49.0000 10.0000-47.0 000 AST (SGOT) (test code = AST (SGOT)) 52.0000 11.0000-37.0 000 eGFR -[place] (test code = eGFR 130.0000 60.0000- 200.0000 -[place]) Sodium (test code = Sodium) 136.0000 mmol/L 128.0000-145.0000 Potassium (test code = Potassium) 3.6000 mmol/L 3.6000-5.1000 Chloride (test code = Chloride) 106.0000 mmol/L 96.0000-108.0000 CO2 (test code = CO2) 27.0000 mmol/L 18.0000-33.0000 BUN (test code = BUN) 6.0000 mg/dL 7.0000-22.0000 [id number] 11:51:00 Test Item Value Reference Range Comments WBC (test code = WBC) 4.0000 4.0000-10.0000 Lymphocytes % (test code = Lymphocytes %) 33.0000 % 22.400 0-43.6000 MID% (test code = MID%) 8.5000 % 1.1999- Neutrophils % (test code = Neutrophils %) 58.5000 % 48.900 0-69.9000 Lymphocytes (test code = Lymphocytes) 1.3000 1.2000-3.2 000 MID (test code = MID) 0.4000 0.1000-1.1000 Neutrophils (test code = Neutrophils) 2.3000 1.5000-6.7 000 RBC (test code = RBC) 3.3300 3.7000-4.9000 HGB (test code = HGB) 9.6000 g/dL 11.1999-18.0000 HCT (test code = HCT) 29.5000 % 34.0000-44.0000 MCV (test code = MCV) 88.4000 fL 80.0000-94.0000 MCH (test code = MCH) 28.8000 pg 27.0000-34.0000 MCHC (test code = MCHC) 32.6000 g/dL 31.5000-36.0000 RDW (test code = RDW) 21.5000 11.0000-18.0000 PLT (test code = PLT) 95.0000 140.0000-440.0000 MPV (test code = MPV) 8.3000 fL 6.8000-10.6000 [id number] 11:51:00 Test Item Value Reference Range Comments Neutrophils (test code = Neutrophils) 2.3000 1.5000-6.7 000 MID (test code = MID) 0.4000 0.1000-1.1000 Lymphocytes (test code = Lymphocytes) 1.3000 1.2000-3.2 000 WBC (test code = WBC) 4.0000 4.0000-10.0000 PLT (test code = PLT) 95.0000 140.0000-440.0000 RBC (test code = RBC) 3.3300 3.7000-4.9000 MID% (test code = MID%) 8.5000 % .1999- Neutrophils % (test code = Neutrophils %) 58.5000 % 48.900 0-69.9000 RDW (test code = RDW) 21.5000 11.0000-18.0000 Lymphocytes % (test code = Lymphocytes %) 33.0000 % 22.400 0-43.6000 HCT (test code = HCT) 29.5000 % 34.0000-44.0000 HGB (test code = HGB) 9.6000 g/dL 11.2000-18.0000 MCHC (test code = MCHC) 32.6000 g/dL 31.5000-36.0000 MPV (test code = MPV) 8.3000 fL 6.8000-10.6000 MCV (test code = MCV) 88.4000 fL 80.0000-94.0000 MCH (test code = MCH) 28.8000 pg 27.0000-34.0000 [id number] 11:43:00 Test Item Value Reference Range Comments WBC (test code = WBC) 3.4000 4.0000-10.0000 Lymphocytes % (test code = Lymphocytes %) 42.5000 % 22.400 0-43.6000 MID% (test code = MID%) 9.2000 % 1.2000-11.2000 Neutrophils % (test code = Neutrophils %) 48.3000 % 48.900 0-69.9000 Lymphocytes (test code = Lymphocytes) 1.4000 1.2000-3.2 000 MID (test code = MID) 0.4000 0.1000-1.1000 Neutrophils (test code = Neutrophils) 1.6000 1.5000-6.7 000 RBC (test code = RBC) 4.0300 3.7000-4.9000 HGB (test code = HGB) 11.8000 g/dL 11.2000-18.0000 HCT (test code = HCT) 35.5000 % 34.0000-44.0000 MCV (test code = MCV) 88.2000 fL 80.0000-94.0000 MCH (test code = MCH) 29.3000 pg 27.0000-34.0000 MCHC (test code = MCHC) 33.2000 g/dL 31.5000-36.0000 RDW (test code = RDW) 22.8000 11.0000-18.0000 PLT (test code = PLT) 218.0000 140.0000-440.0000 MPV (test code = MPV) 8.1000 fL 6.8000-10.6000 [id number] 11:43:00 Test Item Value Reference Range Comments Creatinine (test code = Creatinine) 0.6000 mg/dL 0.5000-1.200 0 Cr Clearance (Est) (test code = Cr 155.3700 75.0000-115.0 000 Clearance (Est)) Glucose (test code = Glucose) 143.0000 mg/dL 70.0000-118.0000 BUN (test code = BUN) 9.0000 mg/dL 7.0000-22.0000 Sodium (test code = Sodium) 135.0000 mmol/L 128.0000-145.0000 Potassium (test code = Potassium) 3.4000 mmol/L 3.6000-5.1000 Chloride (test code = Chloride) 104.0000 mmol/L 96.0000-108.0000 CO2 (test code = CO2) 27.0000 mmol/L 18.0000-33.0000 Calcium (test code = Calcium) 8.6800 mg/dL 8.0000-10.3000 Alkaline Phosphatase (test code = Alkaline 70.0000 42.00 00-141.0000 Phosphatase) ALT (SGPT) (test code = ALT (SGPT)) 113.0000 10.0000-47.0 000 AST (SGOT) (test code = AST (SGOT)) 127.0000 11.0000-37.0 000 Bilirubin, Total (test code = Bilirubin, 0.5000 mg/dL 0.0000- 1.6000 Total) Albumin (test code = Albumin) 4.2000 g/dL 3.5000-5.5000 Protein, Total (test code = Protein, 6.3000 g/dL 6.4000-8.10 00 Total) eGFR -[place] (test code = eGFR 130.0000 60.0000- 200.0000 -[place]) eGFR Hry-Ufndpyu-Vwoiczqw (test code = 108.0000 60.0000-2 00.0000 eGFR Obf-Cdwdfcd-Nuglefyp) [id number] 11:43:00 Test Item Value Reference Range Comments MCH (test code = MCH) 29.3000 pg 27.0000-34.0000 MCV (test code = MCV) 88.2000 fL 80.0000-94.0000 MCHC (test code = MCHC) 33.2000 g/dL 31.5000-36.0000 MPV (test code = MPV) 8.1000 fL 6.8000-10.6000 HGB (test code = HGB) 11.8000 g/dL 11.2000-18.0000 Lymphocytes % (test code = Lymphocytes %) 42.5000 % 22.400 0-43.6000 HCT (test code = HCT) 35.5000 % 34.0000-44.0000 RDW (test code = RDW) 22.8000 11.0000-18.0000 Neutrophils % (test code = Neutrophils %) 48.3000 % 48.900 0-69.9000 MID% (test code = MID%) 9.2000 % 1.2000-11.2000 RBC (test code = RBC) 4.0300 3.7000-4.9000 WBC (test code = WBC) 3.4000 4.0000-10.0000 PLT (test code = PLT) 218.0000 140.0000-440.0000 Lymphocytes (test code = Lymphocytes) 1.4000 1.2000-3.2 000 MID (test code = MID) 0.4000 0.1000-1.1000 Neutrophils (test code = Neutrophils) 1.6000 1.5000-6.7 000 eGFR Jzi-Syjsewp-[id number] 11:43:00 Test Item Value Reference Range Comments eGFR Hax-Kzidxlu-Oamzydgm (test code = 108.0000 60.0000-2 00.0000 eGFR Rdf-Mzsohia-Dnlukrrr) Cr Clearance (Est) (test code = Cr 155.3700 75.0000-115.0 000 Clearance (Est)) Albumin (test code = Albumin) 4.2000 g/dL 3.5000-5.5000 Bilirubin, Total (test code = Bilirubin, 0.5000 mg/dL 0.0000- 1.6000 Total) Creatinine (test code = Creatinine) 0.6000 mg/dL 0.5000-1.200 0 Glucose (test code = Glucose) 143.0000 mg/dL 70.0000-118.0000 Protein, Total (test code = Protein, 6.3000 g/dL 6.4000-8.10 00 Total) Calcium (test code = Calcium) 8.6800 mg/dL 8.0000-10.3000 Alkaline Phosphatase (test code = Alkaline 70.0000 42.00 00-141.0000 Phosphatase) AST (SGOT) (test code = AST (SGOT)) 127.0000 11.0000-37.0 000 ALT (SGPT) (test code = ALT (SGPT)) 113.0000 10.0000-47.0 000 CO2 (test code = CO2) 27.0000 mmol/L 18.0000-33.0000 Chloride (test code = Chloride) 104.0000 mmol/L 96.0000-108.0000 Potassium (test code = Potassium) 3.4000 mmol/L 3.6000-5.1000 Sodium (test code = Sodium) 135.0000 mmol/L 128.0000-145.0000 eGFR -[place] (test code = eGFR 130.0000 60.0000- 200.0000 -[place]) BUN (test code = BUN) 9.0000 mg/dL 7.0000-22.0000 [id number] 00:00:00 Test Item Value Reference Range Comments Ferritin (test code = Ferritin) 306.0000 ng/mL 15.0000-150.0000 [id number] 15:40:00 Test Item Value Reference Range Comments WBC (test code = WBC) 4.3000 4.0000-10.0000 Lymphocytes % (test code = Lymphocytes %) 37.5000 % 22.400 0-43.6000 MID% (test code = MID%) 8.0000 % 1.2000-11.2000 Neutrophils % (test code = Neutrophils %) 54.5000 % 48.900 0-69.9000 Lymphocytes (test code = Lymphocytes) 1.6000 1.2000-3.2 000 MID (test code = MID) 0.4000 0.1000-1.1000 Neutrophils (test code = Neutrophils) 2.3000 1.5000-6.7 000 RBC (test code = RBC) 4.0400 3.7000-4.9000 HGB (test code = HGB) 11.1000 g/dL 11.2000-18.0000 HCT (test code = HCT) 34.9000 % 34.0000-44.0000 MCV (test code = MCV) 86.4000 fL 80.0000-94.0000 MCH (test code = MCH) 27.4000 pg 27.0000-34.0000 MCHC (test code = MCHC) 31.7000 g/dL 31.5000-36.0000 RDW (test code = RDW) 22.5000 11.0000-18.0000 PLT (test code = PLT) 124.0000 140.0000-440.0000 MPV (test code = MPV) 8.7000 fL 6.8000-10.6000 [id number] 15:40:00 Test Item Value Reference Range Comments MID (test code = MID) 0.4000 0.1000-1.1000 Neutrophils (test code = Neutrophils) 2.3000 1.5000-6.7 000 Lymphocytes (test code = Lymphocytes) 1.6000 1.2000-3.2 000 PLT (test code = PLT) 124.0000 140.0000-440.0000 WBC (test code = WBC) 4.3000 4.0000-10.0000 RBC (test code = RBC) 4.0400 3.7000-4.9000 MID% (test code = MID%) 8.0000 % 1.2000-11.1999 Neutrophils % (test code = Neutrophils %) 54.5000 % 48.900 0-69.9000 RDW (test code = RDW) 22.5000 11.0000-18.0000 Lymphocytes % (test code = Lymphocytes %) 37.5000 % 22.400 0-43.6000 HCT (test code = HCT) 34.9000 % 34.0000-44.0000 HGB (test code = HGB) 11.1000 g/dL 11.2000-18.0000 MCV (test code = MCV) 86.4000 fL 80.0000-94.0000 MPV (test code = MPV) 8.7000 fL 6.8000-10.6000 MCHC (test code = MCHC) 31.7000 g/dL 31.5000-36.0000 MCH (test code = MCH) 27.4000 pg 27.0000-34.0000 [id number] 13:53:00 Test Item Value Reference Range Comments WBC (test code = WBC) 5.1000 4.0000-10.0000 Lymphocytes % (test code = Lymphocytes %) 39.8000 % 22.400 0-43.6000 MID% (test code = MID%) 9.3000 % 1.2000-11.1999 Neutrophils % (test code = Neutrophils %) 50.9000 % 48.900 0-69.9000 Lymphocytes (test code = Lymphocytes) 2.0000 1.2000-3.2 000 MID (test code = MID) 0.5000 0.1000-1.1000 Neutrophils (test code = Neutrophils) 2.6000 1.5000-6.7 000 RBC (test code = RBC) 4.5200 3.7000-4.9000 HGB (test code = HGB) 12.3000 g/dL 11.2000-18.0000 HCT (test code = HCT) 38.7000 % 34.0000-44.0000 MCV (test code = MCV) 85.6000 fL 80.0000-94.0000 MCH (test code = MCH) 27.2000 pg 27.0000-34.0000 MCHC (test code = MCHC) 31.7000 g/dL 31.5000-36.0000 RDW (test code = RDW) 23.1000 11.0000-18.0000 PLT (test code = PLT) 132.0000 140.0000-440.0000 MPV (test code = MPV) 8.3000 fL 6.8000-10.6000 [id number] 13:53:00 Test Item Value Reference Range Comments MCH (test code = MCH) 27.2000 pg 27.0000-34.0000 MCHC (test code = MCHC) 31.7000 g/dL 31.5000-36.0000 MCV (test code = MCV) 85.6000 fL 80.0000-94.0000 MPV (test code = MPV) 8.3000 fL 6.8000-10.6000 HGB (test code = HGB) 12.3000 g/dL 11.2000-18.0000 HCT (test code = HCT) 38.7000 % 34.0000-44.0000 Lymphocytes % (test code = Lymphocytes %) 39.8000 % 22.400 0-43.6000 Neutrophils % (test code = Neutrophils %) 50.9000 % 48.900 0-69.9000 RDW (test code = RDW) 23.1000 11.0000-18.0000 MID% (test code = MID%) 9.3000 % 1.2000-11.2000 RBC (test code = RBC) 4.5200 3.7000-4.9000 WBC (test code = WBC) 5.1000 4.0000-10.0000 PLT (test code = PLT) 132.0000 140.0000-440.0000 Lymphocytes (test code = Lymphocytes) 2.0000 1.2000-3.2 000 Neutrophils (test code = Neutrophils) 2.6000 1.5000-6.7 000 MID (test code = MID) 0.5000 0.1000-1.1000 Iron, [id number] 12:44:00 Test Item Value Reference Range Comments Iron, Total (test code = Iron, Total) 84.0000 27.0000-15 9.0000 TIBC (test code = TIBC) 397.0000 250.0000-450.0000 UIBC (test code = UIBC) 313.0000 131.0000-425.0000 % Iron Saturation (test code = % Iron 21.0000 % 15.0000-55 .0000 Saturation) Ferritin (test code = Ferritin) 190.0000 ng/mL 15.0000-150.0000 [id number] 12:44:00 Test Item Value Reference Range Comments CEA (test code = CEA) 5.0000 ng/mL 0.0000-4.7000 [id number] 11:32:00 Test Item Value Reference Range Comments Magnesium (test code = Magnesium) 1.9000 mg/dL 1.6000-2.3000 [id number] 10:37:00 Test Item Value Reference Range Comments WBC (test code = WBC) 2.9000 4.0000-10.0000 Lymphocytes % (test code = Lymphocytes %) 40.8000 % 22.400 0-43.6000 MID% (test code = MID%) 10.3000 % 1.2000-11.2000 Neutrophils % (test code = Neutrophils %) 48.9000 % 48.900 0-69.9000 Lymphocytes (test code = Lymphocytes) 1.2000 1.2000-3.2 000 MID (test code = MID) 0.3000 0.1000-1.1000 Neutrophils (test code = Neutrophils) 1.4000 1.5000-6.7 000 RBC (test code = RBC) 4.0900 3.7000-4.9000 HGB (test code = HGB) 11.0000 g/dL 11.2000-18.0000 HCT (test code = HCT) 34.6000 % 34.0000-44.0000 MCV (test code = MCV) 84.6000 fL 80.0000-94.0000 MCH (test code = MCH) 27.0000 pg 27.0000-34.0000 MCHC (test code = MCHC) 31.9000 g/dL 31.5000-36.0000 RDW (test code = RDW) 24.5000 11.0000-18.0000 PLT (test code = PLT) 214.0000 140.0000-440.0000 MPV (test code = MPV) 7.8000 fL 6.8000-10.6000 [id number] 10:37:00 Test Item Value Reference Range Comments HGB (test code = HGB) 11.0000 g/dL 11.1999-18.0000 MCHC (test code = MCHC) 31.9000 g/dL 31.5000-36.0000 MCH (test code = MCH) 27.0000 pg 27.0000-34.0000 MPV (test code = MPV) 7.8000 fL 6.8000-10.6000 MCV (test code = MCV) 84.6000 fL 80.0000-94.0000 MID% (test code = MID%) 10.3000 % 1.2000-11.2000 HCT (test code = HCT) 34.6000 % 34.0000-44.0000 Lymphocytes % (test code = Lymphocytes %) 40.8000 % 22.400 0-43.6000 Neutrophils % (test code = Neutrophils %) 48.9000 % 48.900 0-69.9000 RDW (test code = RDW) 24.5000 11.0000-18.0000 WBC (test code = WBC) 2.9000 4.0000-10.0000 PLT (test code = PLT) 214.0000 140.0000-440.0000 MID (test code = MID) 0.3000 0.1000-1.1000 Neutrophils (test code = Neutrophils) 1.4000 1.5000-6.7 000 Lymphocytes (test code = Lymphocytes) 1.2000 1.2000-3.2 000 RBC (test code = RBC) 4.0900 3.7000-4.9000 [id number] 10:36:00 Test Item Value Reference Range Comments Creatinine (test code = Creatinine) 0.6000 mg/dL 0.5000-1.200 0 Cr Clearance (Est) (test code = Cr 156.3800 75.0000-115.0 000 Clearance (Est)) Glucose (test code = Glucose) 103.0000 mg/dL 70.0000-118.0000 BUN (test code = BUN) 7.0000 mg/dL 7.0000-22.0000 Sodium (test code = Sodium) 137.0000 mmol/L 128.0000-145.0000 Potassium (test code = Potassium) 3.8000 mmol/L 3.6000-5.1000 Chloride (test code = Chloride) 107.0000 mmol/L 96.0000-108.0000 CO2 (test code = CO2) 28.0000 mmol/L 18.0000-33.0000 Calcium (test code = Calcium) 9.3700 mg/dL 8.0000-10.3000 Alkaline Phosphatase (test code = Alkaline 66.0000 42.00 00-141.0000 Phosphatase) ALT (SGPT) (test code = ALT (SGPT)) 94.0000 10.0000-47.0 000 AST (SGOT) (test code = AST (SGOT)) 82.0000 11.0000-37.0 000 Bilirubin, Total (test code = Bilirubin, 0.6000 mg/dL 0.0000- 1.6000 Total) Albumin (test code = Albumin) 4.4000 g/dL 3.5000-5.5000 Protein, Total (test code = Protein, 6.5000 g/dL 6.4000-8.10 00 Total) eGFR -[place] (test code = eGFR 130.0000 60.0000- 200.0000 -[place]) eGFR Qac-Jdwkjpz-Shcnzyvi (test code = 108.0000 60.0000-2 00.0000 eGFR Hwk-Ewwaijb-Pkiqyxth) [id number] 10:36:00 Test Item Value Reference Range Comments BUN (test code = BUN) 7.0000 mg/dL 7.0000-22.0000 Alkaline Phosphatase (test code = Alkaline 66.0000 42.00 00-141.0000 Phosphatase) ALT (SGPT) (test code = ALT (SGPT)) 94.0000 10.0000-47.0 000 AST (SGOT) (test code = AST (SGOT)) 82.0000 11.0000-37.0 000 Sodium (test code = Sodium) 137.0000 mmol/L 128.0000-145.0000 Potassium (test code = Potassium) 3.8000 mmol/L 3.6000-5.1000 CO2 (test code = CO2) 28.0000 mmol/L 18.0000-33.0000 Chloride (test code = Chloride) 107.0000 mmol/L 96.0000-108.0000 Cr Clearance (Est) (test code = Cr 156.3800 75.0000-115.0 000 Clearance (Est)) eGFR -[place] (test code = eGFR 130.0000 60.0000- 200.0000 -[place]) eGFR Baf-Dxktuhs-Ksgafvqc (test code = 108.0000 60.0000-2 00.0000 eGFR Mgc-Fiayvue-Weumddjq) Albumin (test code = Albumin) 4.4000 g/dL 3.5000-5.5000 Calcium (test code = Calcium) 9.3700 mg/dL 8.0000-10.3000 Protein, Total (test code = Protein, 6.5000 g/dL 6.4000-8.10 00 Total) Glucose (test code = Glucose) 103.0000 mg/dL 70.0000-118.0000 Bilirubin, Total (test code = Bilirubin, 0.6000 mg/dL 0.0000- 1.6000 Total) Creatinine (test code = Creatinine) 0.6000 mg/dL 0.5000-1.200 0 [id number] 12:44:00 Test Item Value Reference Range Comments WBC (test code = WBC) 4.4000 4.0000-10.0000 Lymphocytes % (test code = Lymphocytes %) 32.1000 % 22.400 0-43.6000 MID% (test code = MID%) 9.1000 % 1.2000-11.2000 Neutrophils % (test code = Neutrophils %) 58.8000 % 48.900 0-69.9000 Lymphocytes (test code = Lymphocytes) 1.4000 1.2000-3.2 000 MID (test code = MID) 0.4000 0.1000-1.1000 Neutrophils (test code = Neutrophils) 2.6000 1.5000-6.7 000 RBC (test code = RBC) 4.4200 3.7000-4.9000 HGB (test code = HGB) 11.5000 g/dL 11.2000-18.0000 HCT (test code = HCT) 36.7000 % 34.0000-44.0000 MCV (test code = MCV) 83.1000 fL 80.0000-94.0000 MCH (test code = MCH) 26.2000 pg 27.0000-34.0000 MCHC (test code = MCHC) 31.5000 g/dL 31.5000-36.0000 RDW (test code = RDW) 24.0000 11.0000-18.0000 PLT (test code = PLT) 195.0000 140.0000-440.0000 MPV (test code = MPV) 7.9000 fL 6.8000-10.6000 [id number] 12:44:00 Test Item Value Reference Range Comments HGB (test code = HGB) 11.5000 g/dL 11.2000-18.0000 MCV (test code = MCV) 83.1000 fL 80.0000-94.0000 MPV (test code = MPV) 7.9000 fL 6.8000-10.6000 MCHC (test code = MCHC) 31.5000 g/dL 31.5000-36.0000 MCH (test code = MCH) 26.2000 pg 27.0000-34.0000 Neutrophils % (test code = Neutrophils %) 58.8000 % 48.900 0-69.9000 RDW (test code = RDW) 24.0000 11.0000-18.0000 Lymphocytes % (test code = Lymphocytes %) 32.1000 % 22.400 0-43.6000 HCT (test code = HCT) 36.7000 % 34.0000-44.0000 MID% (test code = MID%) 9.1000 % 1.1999-11.1999 RBC (test code = RBC) 4.4200 3.7000-4.9000 Lymphocytes (test code = Lymphocytes) 1.4000 1.2000-3.2 000 Neutrophils (test code = Neutrophils) 2.6000 1.5000-6.7 000 MID (test code = MID) 0.4000 0.1000-1.1000 PLT (test code = PLT) 195.0000 140.0000-440.0000 WBC (test code = WBC) 4.4000 4.0000-10.0000 [id number] 11:38:00 Test Item Value Reference Range Comments WBC (test code = WBC) 4.6000 4.0000-10.0000 Lymphocytes % (test code = Lymphocytes %) 32.6000 % 22.400 0-43.6000 MID% (test code = MID%) 9.3000 % 1.1999-11.1999 Neutrophils % (test code = Neutrophils %) 58.1000 % 48.900 0-69.9000 Lymphocytes (test code = Lymphocytes) 1.5000 1.2000-3.2 000 MID (test code = MID) 0.5000 0.1000-1.1000 Neutrophils (test code = Neutrophils) 2.6000 1.5000-6.7 000 RBC (test code = RBC) 3.8300 3.7000-4.9000 HGB (test code = HGB) 10.4000 g/dL 11.2000-18.0000 HCT (test code = HCT) 31.0000 % 34.0000-44.0000 MCV (test code = MCV) 80.9000 fL 80.0000-94.0000 MCH (test code = MCH) 27.2000 pg 27.0000-34.0000 MCHC (test code = MCHC) 33.6000 g/dL 31.5000-36.0000 RDW (test code = RDW) 25.1000 11.0000-18.0000 PLT (test code = PLT) 211.0000 140.0000-440.0000 MPV (test code = MPV) 7.6000 fL 6.8000-10.6000 [id number] 11:38:00 Test Item Value Reference Range Comments Creatinine (test code = Creatinine) 0.6000 mg/dL 0.5000-1.200 0 Cr Clearance (Est) (test code = Cr 156.5500 75.0000-115.0 000 Clearance (Est)) Glucose (test code = Glucose) 97.0000 mg/dL 70.0000-118.0000 BUN (test code = BUN) 8.0000 mg/dL 7.0000-22.0000 Sodium (test code = Sodium) 136.0000 mmol/L 128.0000-145.0000 Potassium (test code = Potassium) 4.0000 mmol/L 3.6000-5.1000 Chloride (test code = Chloride) 105.0000 mmol/L 96.0000-108.0000 CO2 (test code = CO2) 27.0000 mmol/L 18.0000-33.0000 Calcium (test code = Calcium) 8.8300 mg/dL 8.0000-10.3000 Alkaline Phosphatase (test code = Alkaline 73.0000 42.00 00-141.0000 Phosphatase) ALT (SGPT) (test code = ALT (SGPT)) 37.0000 10.0000-47.0 000 AST (SGOT) (test code = AST (SGOT)) 23.0000 11.0000-37.0 000 Bilirubin, Total (test code = Bilirubin, 0.5000 mg/dL 0.0000- 1.6000 Total) Albumin (test code = Albumin) 4.2000 g/dL 3.5000-5.5000 Protein, Total (test code = Protein, 7.2000 g/dL 6.4000-8.10 00 Total) eGFR -[place] (test code = eGFR 130.0000 60.0000- 200.0000 -[place]) eGFR Stf-Bcxoweh-Ciahscoi (test code = 108.0000 60.0000-2 00.0000 eGFR Fte-Ndsrruy-Eaaeqziv) [id number] 11:38:00 Test Item Value Reference Range Comments BUN (test code = BUN) 8.0000 mg/dL 7.0000-22.0000 AST (SGOT) (test code = AST (SGOT)) 23.0000 11.0000-37.0 000 ALT (SGPT) (test code = ALT (SGPT)) 37.0000 10.0000-47.0 000 Alkaline Phosphatase (test code = Alkaline 73.0000 42.00 00-141.0000 Phosphatase) Chloride (test code = Chloride) 105.0000 mmol/L 96.0000-108.0000 CO2 (test code = CO2) 27.0000 mmol/L 18.0000-33.0000 Potassium (test code = Potassium) 4.0000 mmol/L 3.6000-5.1000 Sodium (test code = Sodium) 136.0000 mmol/L 128.0000-145.0000 eGFR Uji-Yrphdcx-Maoqjcxh (test code = 108.0000 60.0000-2 00.0000 eGFR Pfa-Zljqhfx-Vnpjyfau) eGFR -[place] (test code = eGFR 130.0000 60.0000- 200.0000 -[place]) Cr Clearance (Est) (test code = Cr 156.5500 75.0000-115.0 000 Clearance (Est)) Albumin (test code = Albumin) 4.2000 g/dL 3.5000-5.5000 Bilirubin, Total (test code = Bilirubin, 0.5000 mg/dL 0.0000- 1.6000 Total) Creatinine (test code = Creatinine) 0.6000 mg/dL 0.5000-1.200 0 Protein, Total (test code = Protein, 7.2000 g/dL 6.4000-8.10 00 Total) Calcium (test code = Calcium) 8.8300 mg/dL 8.0000-10.3000 Glucose (test code = Glucose) 97.0000 mg/dL 70.0000-118.0000 [id number] 15:50:00 Test Item Value Reference Range Comments WBC (test code = WBC) 7.4000 4.0000-10.0000 Lymphocytes % (test code = Lymphocytes %) 32.9000 % 22.400 0-43.6000 MID% (test code = MID%) 7.8000 % 1.2000-11.2000 Neutrophils % (test code = Neutrophils %) 59.3000 % 48.900 0-69.9000 Lymphocytes (test code = Lymphocytes) 2.4000 1.2000-3.2 000 MID (test code = MID) 0.6000 0.1000-1.1000 Neutrophils (test code = Neutrophils) 4.4000 1.5000-6.7 000 RBC (test code = RBC) 4.2300 3.7000-4.9000 HGB (test code = HGB) 11.2000 g/dL 11.2000-18.0000 HCT (test code = HCT) 31.9000 % 34.0000-44.0000 MCV (test code = MCV) 75.5000 fL 80.0000-94.0000 MCH (test code = MCH) 26.6000 pg 27.0000-34.0000 MCHC (test code = MCHC) 35.2000 g/dL 31.5000-36.0000 RDW (test code = RDW) 24.3000 11.0000-18.0000 PLT (test code = PLT) 214.0000 140.0000-440.0000 MPV (test code = MPV) 8.3000 fL 6.8000-10.6000 [id number] 15:50:00 Test Item Value Reference Range Comments HGB (test code = HGB) 11.2000 g/dL 11.2000-18.0000 MCHC (test code = MCHC) 35.2000 g/dL 31.5000-36.0000 MCV (test code = MCV) 75.5000 fL 80.0000-94.0000 MPV (test code = MPV) 8.3000 fL 6.8000-10.6000 MCH (test code = MCH) 26.6000 pg 27.0000-34.0000 Neutrophils % (test code = Neutrophils %) 59.3000 % 48.900 0-69.9000 RDW (test code = RDW) 24.3000 11.0000-18.0000 Lymphocytes % (test code = Lymphocytes %) 32.9000 % 22.400 0-43.6000 HCT (test code = HCT) 31.9000 % 34.0000-44.0000 MID% (test code = MID%) 7.8000 % 1.2000-11.2000 RBC (test code = RBC) 4.2300 3.7000-4.9000 Lymphocytes (test code = Lymphocytes) 2.4000 1.2000-3.2 000 Neutrophils (test code = Neutrophils) 4.4000 1.5000-6.7 000 MID (test code = MID) 0.6000 0.1000-1.1000 PLT (test code = PLT) 214.0000 140.0000-440.0000 WBC (test code = WBC) 7.4000 4.0000-10.0000 [id number] 09:41:00 Test Item Value Reference Range Comments WBC (test code = WBC) 6.4000 4.0000-10.0000 Lymphocytes % (test code = Lymphocytes %) 24.7000 % 22.400 0-43.6000 MID% (test code = MID%) 6.6000 % 1.2000-11.1999 Neutrophils % (test code = Neutrophils %) 68.7000 % 48.900 0-69.9000 Lymphocytes (test code = Lymphocytes) 1.6000 1.2000-3.2 000 MID (test code = MID) 0.4000 0.1000-1.1000 Neutrophils (test code = Neutrophils) 4.4000 1.5000-6.7 000 RBC (test code = RBC) 4.4000 3.7000-4.9000 HGB (test code = HGB) 10.5000 g/dL 11.2000-18.0000 HCT (test code = HCT) 32.7000 % 34.0000-44.0000 MCV (test code = MCV) 74.4000 fL 80.0000-94.0000 MCH (test code = MCH) 23.9000 pg 27.0000-34.0000 MCHC (test code = MCHC) 32.1000 g/dL 31.5000-36.0000 RDW (test code = RDW) 22.8000 11.0000-18.0000 PLT (test code = PLT) 326.0000 140.0000-440.0000 MPV (test code = MPV) 7.8000 fL 6.8000-10.6000 [id number] 09:41:00 Test Item Value Reference Range Comments PLT (test code = PLT) 326.0000 140.0000-440.0000 WBC (test code = WBC) 6.4000 4.0000-10.0000 MID (test code = MID) 0.4000 0.1000-1.1000 Neutrophils (test code = Neutrophils) 4.4000 1.5000-6.7 000 Lymphocytes (test code = Lymphocytes) 1.6000 1.2000-3.2 000 RBC (test code = RBC) 4.4000 3.7000-4.9000 MID% (test code = MID%) 6.6000 % 1.1999-11.1999 HCT (test code = HCT) 32.7000 % 34.0000-44.0000 Lymphocytes % (test code = Lymphocytes %) 24.7000 % 22.400 0-43.6000 RDW (test code = RDW) 22.8000 11.0000-18.0000 Neutrophils % (test code = Neutrophils %) 68.7000 % 48.900 0-69.9000 MCHC (test code = MCHC) 32.1000 g/dL 31.5000-36.0000 MPV (test code = MPV) 7.8000 fL 6.8000-10.6000 MCV (test code = MCV) 74.4000 fL 80.0000-94.0000 MCH (test code = MCH) 23.9000 pg 27.0000-34.0000 HGB (test code = HGB) 10.5000 g/dL 11.1999-18.0000 [id number] 09:40:00 Test Item Value Reference Range Comments Creatinine (test code = Creatinine) 0.8000 mg/dL 0.5000-1.200 0 Cr Clearance (Est) (test code = Cr 113.5100 75.0000-115.0 000 Clearance (Est)) Glucose (test code = Glucose) 96.0000 mg/dL 70.0000-118.0000 BUN (test code = BUN) 9.0000 mg/dL 7.0000-22.0000 Sodium (test code = Sodium) 140.0000 mmol/L 128.0000-145.0000 Potassium (test code = Potassium) 3.8000 mmol/L 3.6000-5.1000 Chloride (test code = Chloride) 101.0000 mmol/L 96.0000-108.0000 CO2 (test code = CO2) 27.0000 mmol/L 18.0000-33.0000 Calcium (test code = Calcium) 9.4000 mg/dL 8.0000-10.3000 Alkaline Phosphatase (test code = Alkaline 75.0000 42.00 00-141.0000 Phosphatase) ALT (SGPT) (test code = ALT (SGPT)) 30.0000 10.0000-47.0 000 AST (SGOT) (test code = AST (SGOT)) 28.0000 11.0000-37.0 000 Bilirubin, Total (test code = Bilirubin, 0.7000 mg/dL 0.0000- 1.6000 Total) Albumin (test code = Albumin) 3.8000 g/dL 3.5000-5.5000 Protein, Total (test code = Protein, 7.6000 g/dL 6.4000-8.10 00 Total) eGFR -Senegalese (test code = eGFR 94.0000 60.0000- 200.0000 -Senegalese) eGFR Vie-Oigvinr-Gftbyxxa (test code = 78.0000 60.0000-2 00.0000 eGFR Dva-Esywyxv-Lyapsnbc) [id number] 09:40:00 Test Item Value Reference Range Comments Calcium (test code = Calcium) 9.4000 mg/dL 8.0000-10.3000 Glucose (test code = Glucose) 96.0000 mg/dL 70.0000-118.0000 Protein, Total (test code = Protein, 7.6000 g/dL 6.4000-8.10 00 Total) Creatinine (test code = Creatinine) 0.8000 mg/dL 0.5000-1.200 0 Bilirubin, Total (test code = Bilirubin, 0.7000 mg/dL 0.0000- 1.6000 Total) Albumin (test code = Albumin) 3.8000 g/dL 3.5000-5.5000 eGFR -Senegalese (test code = eGFR 94.0000 60.0000- 200.0000 -Senegalese) eGFR Rbo-Qndcsob-Sofqwate (test code = 78.0000 60.0000-2 00.0000 eGFR Psh-Rjspecp-Jxjogygo) Cr Clearance (Est) (test code = Cr 113.5100 75.0000-115.0 000 Clearance (Est)) Sodium (test code = Sodium) 140.0000 mmol/L 128.0000-145.0000 Potassium (test code = Potassium) 3.8000 mmol/L 3.6000-5.1000 CO2 (test code = CO2) 27.0000 mmol/L 18.0000-33.0000 Chloride (test code = Chloride) 101.0000 mmol/L 96.0000-108.0000 AST (SGOT) (test code = AST (SGOT)) 28.0000 11.0000-37.0 000 ALT (SGPT) (test code = ALT (SGPT)) 30.0000 10.0000-47.0 000 Alkaline Phosphatase (test code = Alkaline 75.0000 42.00 00-141.0000 Phosphatase) BUN (test code = BUN) 9.0000 mg/dL 7.0000-22.0000 [id number] 14:55:00 Test Item Value Reference Range Comments Creatinine (test code = Creatinine) 0.7100 mg/dL 0.5700-1.000 0 Cr Clearance (Est) (test code = Cr 122.3700 75.0000-115.0 000 Clearance (Est)) Glucose (test code = Glucose) 80.0000 mg/dL 65.0000-99.0000 BUN (test code = BUN) 8.0000 mg/dL 6.0000-24.0000 eGFR Btt-Gdtsbom-Tzwemiax (test code = 102.0000 eGFR Dpl-Oatuvvi-Ocvuibye) eGFR -Senegalese (test code = eGFR 118.0000 -Senegalese) BUN/Creat Ratio (test code = BUN/Creat 11.0000 9.0000-23 .0000 Ratio) Sodium (test code = Sodium) 140.0000 mmol/L 134.0000-144.0000 Potassium (test code = Potassium) 4.4000 mmol/L 3.5000-5.2000 Chloride (test code = Chloride) 103.0000 mmol/L 96.0000-106.0000 CO2 (test code = CO2) 25.0000 mmol/L 20.0000-29.0000 Calcium (test code = Calcium) 9.4000 mg/dL 8.7000-10.2000 Protein, Total (test code = Protein, 6.7000 g/dL 6.0000-8.50 00 Total) Albumin (test code = Albumin) 4.1000 g/dL 3.5000-5.5000 Globulin (test code = Globulin) 2.6000 g/dL 1.5000-4.5000 A/G Ratio (test code = A/G Ratio) 1.6000 1.2000-2.2000 Bilirubin, Total (test code = Bilirubin, 0.3000 mg/dL 0.0000- 1.2000 Total) Alkaline Phosphatase (test code = Alkaline 72.0000 39.00 00-117.0000 Phosphatase) AST (SGOT) (test code = AST (SGOT)) 13.0000 0.0000-40.00 00 ALT (SGPT) (test code = ALT (SGPT)) 10.0000 0.0000-32.00 00 Iron, Total (test code = Iron, Total) 23.0000 27.0000-15 9.0000 TIBC (test code = TIBC) 420.0000 250.0000-450.0000 UIBC (test code = UIBC) 397.0000 131.0000-425.0000 % Iron Saturation (test code = % Iron 5.0000 % 15.0000-55 .0000 Saturation) Ferritin (test code = Ferritin) 15.0000 ng/mL 15.0000-150.0000 Iron, [id number] 14:55:00 Test Item Value Reference Range Comments Iron, Total (test code = Iron, Total) 23.0000 27.0000-15 9.0000 TIBC (test code = TIBC) 420.0000 250.0000-450.0000 UIBC (test code = UIBC) 397.0000 131.0000-425.0000 Bilirubin, Total (test code = Bilirubin, 0.3000 mg/dL 0.0000- 1.2000 Total) BUN (test code = BUN) 8.0000 mg/dL 6.0000-24.0000 eGFR Nio-Ijqqznc-Ppygkpvb (test code = 102.0000 eGFR Vjx-Ihrukxt-Ctpdszjb) A/G Ratio (test code = A/G Ratio) 1.6000 1.2000-2.2000 BUN/Creat Ratio (test code = BUN/Creat 11.0000 9.0000-23 .0000 Ratio) eGFR -Senegalese (test code = eGFR 118.0000 -Senegalese) % Iron Saturation (test code = % Iron 5.0000 % 15.0000-55 .0000 Saturation) AST (SGOT) (test code = AST (SGOT)) 13.0000 0.0000-40.00 00 Alkaline Phosphatase (test code = Alkaline 72.0000 39.00 00-117.0000 Phosphatase) ALT (SGPT) (test code = ALT (SGPT)) 10.0000 0.0000-32.00 00 Chloride (test code = Chloride) 103.0000 mmol/L 96.0000-106.0000 CO2 (test code = CO2) 25.0000 mmol/L 20.0000-29.0000 Potassium (test code = Potassium) 4.4000 mmol/L 3.5000-5.2000 Sodium (test code = Sodium) 140.0000 mmol/L 134.0000-144.0000 Ferritin (test code = Ferritin) 15.0000 ng/mL 15.0000-150.0000 Cr Clearance (Est) (test code = Cr 122.3700 75.0000-115.0 000 Clearance (Est)) Albumin (test code = Albumin) 4.1000 g/dL 3.5000-5.5000 Globulin (test code = Globulin) 2.6000 g/dL 1.5000-4.5000 Creatinine (test code = Creatinine) 0.7100 mg/dL 0.5700-1.000 0 Protein, Total (test code = Protein, 6.7000 g/dL 6.0000-8.50 00 Total) Glucose (test code = Glucose) 80.0000 mg/dL 65.0000-99.0000 Calcium (test code = Calcium) 9.4000 mg/dL 8.7000-10.1999 [id number] 14:45:00 Test Item Value Reference Range Comments WBC (test code = WBC) 4.9000 4.0000-10.0000 Lymphocytes % (test code = Lymphocytes %) 33.5000 % 22.400 0-43.6000 MID% (test code = MID%) 7.7000 % 1.2000-11.1999 Neutrophils % (test code = Neutrophils %) 58.8000 % 48.900 0-69.9000 Lymphocytes (test code = Lymphocytes) 1.6000 1.2000-3.2 000 MID (test code = MID) 0.4000 0.1000-1.1000 Neutrophils (test code = Neutrophils) 2.9000 1.5000-6.7 000 RBC (test code = RBC) 4.0500 3.7000-4.9000 HGB (test code = HGB) 9.3000 g/dL 11.1999-18.0000 HCT (test code = HCT) 28.8000 % 34.0000-44.0000 MCV (test code = MCV) 71.1000 fL 80.0000-94.0000 MCH (test code = MCH) 22.9000 pg 27.0000-34.0000 MCHC (test code = MCHC) 32.3000 g/dL 31.5000-36.0000 RDW (test code = RDW) 22.1999 11.0000-18.0000 PLT (test code = PLT) 289.0000 140.0000-440.0000 MPV (test code = MPV) 7.1999 fL 6.8000-10.6000 [id number] 14:45:00 Test Item Value Reference Range Comments HGB (test code = HGB) 9.3000 g/dL 11.1999-18.0000 MCV (test code = MCV) 71.1000 fL 80.0000-94.0000 MPV (test code = MPV) 7.1999 fL 6.8000-10.6000 MCHC (test code = MCHC) 32.3000 g/dL 31.5000-36.0000 MCH (test code = MCH) 22.9000 pg 27.0000-34.0000 MID% (test code = MID%) 7.7000 % 1.2000-11.2000 HCT (test code = HCT) 28.8000 % 34.0000-44.0000 Lymphocytes % (test code = Lymphocytes %) 33.5000 % 22.400 0-43.6000 RDW (test code = RDW) 22.2000 11.0000-18.0000 Neutrophils % (test code = Neutrophils %) 58.8000 % 48.900 0-69.9000 WBC (test code = WBC) 4.9000 4.0000-10.0000 PLT (test code = PLT) 289.0000 140.0000-440.0000 Lymphocytes (test code = Lymphocytes) 1.6000 1.2000-3.2 000 Neutrophils (test code = Neutrophils) 2.9000 1.5000-6.7 000 MID (test code = MID) 0.4000 0.1000-1.1000 RBC (test code = RBC) 4.0500 3.7000-4.9000 Protein, [id number] 13:57:05 Test Item Value Reference Range Comments Protein, Total (test code = Protein, Total) 7.7000 g/dL 6.00 00-8.5000 Albumin (test code = Albumin) 3.7000 g/dL 3.5000-5.5000 Bilirubin, Total (test code = Bilirubin, 0.2000 mg/dL 0.1000- 1.2000 Total) Alkaline Phosphatase (test code = Alkaline 77.0000 40.00 00-150.0000 Phosphatase) AST (SGOT) (test code = AST (SGOT)) 12.0000 0.0000-45.00 00 ALT (SGPT) (test code = ALT (SGPT)) 15.0000 0.0000-50.00 00 [id number] 13:57:05 Test Item Value Reference Range Comments WBC (test code = WBC) 6.8000 4.0000-10.5000 HGB (test code = HGB) 7.1000 g/dL 11.5000-15.0000 HCT (test code = HCT) 25.9000 % 34.0000-44.0000 MCV (test code = MCV) 65.9000 fL 80.0000-98.0000 Platelet Count (test code = Platelet Count) 387.0000 140. 0000-415.0000 [id number] 13:57:05 Test Item Value Reference Range Comments CEA (test code = CEA) 2.7000 ng/mL 0.0000-3.0000 [id number] 13:57:05 Test Item Value Reference Range Comments HCT (test code = HCT) 25.9000 % 34.0000-44.0000 Platelet Count (test code = Platelet Count) 387.0000 140. 0000-415.0000 WBC (test code = WBC) 6.8000 4.0000-10.5000 MCV (test code = MCV) 65.9000 fL 80.0000-98.0000 HGB (test code = HGB) 7.1000 g/dL 11.5000-15.0000 Alkaline [id number] 13:57:05 Test Item Value Reference Range Comments Alkaline Phosphatase (test code = Alkaline 77.0000 40.00 00-150.0000 Phosphatase) ALT (SGPT) (test code = ALT (SGPT)) 15.0000 0.0000-50.00 00 AST (SGOT) (test code = AST (SGOT)) 12.0000 0.0000-45.00 00 Albumin (test code = Albumin) 3.7000 g/dL 3.5000-5.5000 Protein, Total (test code = Protein, Total) 7.7000 g/dL 6.00 00-8.5000 Bilirubin, Total (test code = Bilirubin, 0.2000 mg/dL 0.1000- 1.2000 Total) Urine Culture, [id number] 00:00:00 Test Item Value Reference Range Comments Urine Culture, Routine Final report Culture s hows less than (test code = 630-4) 10,000 colon y forming units of bacteria per milliliter of urine. This colo ny count is not generally co nsidered to be clinically si gnificant. PATIENT NOT FASTING PERFORMED BY: [facility] [id number] Clinical Information: SRC:URURINALYSIS, AUTOMATED, W/O MICRO ([id number])2012-11-16 00:00:00 Test Item Value Reference Range Comments UA - LEUKOCYTE ESTERASE (test code = 5799-2) Negative UA - NITRITE (test code = 5802-4) Negative UA - URO (test code = UA - URO) 0.2 mg/dL UA - PROTEIN (test code = 74481-5) Trace UA - PH (test code = 5803-2) 6.0 4.6-8.0 UA - BLOOD (test code = 5794-3) Trace UA - SPECIFIC GRAVITY (test code = 2965-2) 1.030 1.001 -1.035 UA - KETONES (test code = 2514-8) Negative UA - BILIRUBIN (test code = 5770-3) Negative UA - GLUCOSE (test code = 5792-7) Negative UA - COLOR (test code = 5778-6) Yellow UA - APPEARANCE (test code = 5767-9) Clear BLD CNT, COMPL CBC W/AUTO DIFF WBC (46067)2011-09-29 00:00:00 Test Item Value Reference Range Comments BLOOD COUNT, PLATELET, AUTOMATED (test code = 284 x10^3uL 15 0-400 777-3) GRANULOCYTE # (test code = 751-8) 53.2 % 42.2-75.2 GRANULOCYTE % (test code = 770-8) 2.5 x10^3uL 1.4-6.5 HCT (HEMATOCRIT) (test code = 4544-3) 33.5 % 35.0-60.0 HGB (HEMOGLOBIN) (test code = 718-7) 11.2 g/dL 11.0-18.0 LYMPHOCYTES, TOTAL (test code = 736-9) 1.8 x10^3uL 1.2-3.4 MCH (MEAN CORPUSCULAR HEMOGLOBIN) (test code = 27.5 pg 2 7.0-37.0 785-6) MCHC (MEAN CORPUSCULAR HEMOGLOBIN CONCENTRATI 33.4 g/dL 33 .0-37.0 (test code = 786-4) MCV (MEAN CORPUSCULAR VOLUME) (test code = 82.3 fL 80.0- 99.9 787-2) MONOCYTE # (test code = 742-7) 8.0 % 1.7-9.3 MONOCYTES (test code = 5905-5) 0.3 x10^3uL 0.1-0.6 MPV (test code = 776-5) 7.6 fL 7.8-11.0 mef RBC (test code = 789-8) 4.07 x10^6uL 4.00-6.00 RDW (RED CELL DISTRIBUTION WIDTH) (test code = 12.9 % 1 1.6-13.7 788-0) WBC (test code = 6690-2) 4.6 x10^3uL 4.5-10.5 Urine test (70081)2008-10-28 00:00:00 Test Item Value Reference Range Comments URINE PREG TEST-VIS COL (test code = 2112-1) NEGATIVE Hematocrit (44121)2008-05-01 00:00:00 Test Item Value Reference Range Comments SPUN MICROHEMATOCRIT (test code = 4545-0) 38 Urine test (28453)2007-08-15 00:00:00 Test Item Value Reference Range Comments URINE PREG TEST-VIS COL (test code = 2112-1) POSITIVE Assessments Condition Name Status Diagnosis Date Treating Clinici an Other allergic rhinitis Active Allergy to other foods Active Malignant neoplasm of colon, Active unspecified Hypothyroidism, unspecified Active Malignant tumor of colon Active 2018-02-19 16:37:09 Stuttering Active 2018-01-18 14:10:46 Malignant tumor of colon Active 2018-01-18 14:10:50 Anemia Active 2018-01-18 14:10:50 Stuttering Active 2017-12-19 13:58:17 Malignant tumor of colon Active 2017-12-19 13:58:27 Anemia Active 2017-12-19 13:58:27 Malignant tumor of colon Active 2017-11-28 16:03:07 Anemia Active 2017-11-28 16:03:15 STREP THROAT/SCARLET FEVER Active ROUTINE GYNECOLOGICAL EXAMINATION Active (.) SCREENING FOR MALIGNANT NEOPLASMS OF Active THE RECTUM (V76.41) SCREENING MAMMOGRAM NEC (V76.12) Active RECTAL ITCHING Active HERPES Active HERPES Active MENORRHAGIA (626.2) Active HERPES Active INTRAMURAL LEIOMYOMA OF UTERUS Active MENORRHAGIA (626.2) Active BREAST PAIN Active SCREENING MAMMOGRAM NEC (V76.12) Active ROUTINE GYNECOLOGICAL EXAMINATION Active (.) SCREENING MAMMOGRAM NEC (V76.12) Active BREAST PAIN Active SCREENING MAMMOGRAM NEC (V76.12) Active BREAST MASS (611.72) Active MICROSCOPIC HEMATURIA (599.72) Active ROUTINE GYNECOLOGICAL EXAMINATION Active (V72.31) SCREENING FOR MALIGNANT NEOPLASMS OF Active THE RECTUM (V76.41) SCREENING MAMMOGRAM NEC (V76.12) Active BREAST MASS (611.72) Active BACK PAIN (724.5) Active SYMP ASSOCIATED W/FEMALE GENITAL ORGANS Active NOS (625.9) INSERTION OF IUD (V25.11) Active SYMP ASSOCIATED W/FEMALE GENITAL ORGANS Active NOS (625.9) DYSMENORRHEA (625.3) Active MENORRHAGIA (626.2) Active MENORRHAGIA (626.2) Active SYMP ASSOCIATED W/FEMALE GENITAL ORGANS Active NOS (625.9) MENORRHAGIA (626.2) Active DYSMENORRHEA (625.3) Active ROUTINE GYNECOLOGICAL EXAMINATION Active (V72.31) SCREENING FOR MALIGNANT NEOPLASMS OF Active THE RECTUM (V76.41) SCREENING MAMMOGRAM NEC (V76.12) Active FIBROADENOSIS OF BREAST (610.2) Active MENORRHAGIA (626.2) Active SYMP ASSOCIATED W/FEMALE GENITAL ORGANS Active NOS (625.9) FIBROADENOSIS OF BREAST (610.2) Active ROUTINE GYNECOLOGICAL EXAMINATION Active (V72.31) ROUTINE GYNECOLOGICAL EXAMINATION Active (V72.31) SCREENING FOR MALIGNANT NEOPLASMS OF Active THE RECTUM (V76.41) SURVEILLANCE OF CONTRACEPTIVE PILL Active (V25.41) ROUTINE FOLLOW-UP (V24.2) Active ROUTINE FOLLOW-UP (V24.2) Active ABSENCE OF MENSTRUATION (626.0) Active MENORRHAGIA (626.2) Active MENORRHAGIA (626.2) Active DYSMENORRHEA (625.3) Active DYSFUNCTIONAL UTERINE BLEEDING (626.8) Active 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 FAMVIR 250 MGMS BID X 60 DAYS. Active F/U PER PROTOCOL Active Encounters Start End Encounter Admission Attending Care Care Encounter Date/Time Date/Time Type Type Clinicians Facility Department ID 2019-12-18 2019-12-18 Outpatient Corey Peters [facility] [id number] 00:00:00 00:00:00 Marleny marquez [facility] [place] 2019-12-12 2019-12-12 Outpatient [facility] [id number] 00:00:00 00:00:00 ankur [facility] [place] 2019-12-11 2019-12-11 Outpatient [facility] [id number] 00:00:00 00:00:00 rn [facility] 2019 2019 Outpatient Corey Webster [id number] 00:00:00 00:00:00 rn [facility] 2019-12-03 2019-12-03 Outpatient Corey Webster [id number] 00:00:00 00:00:00 rn [facility] 2019-11-22 2019-11-22 Outpatient Corey Webster [id number] 00:00:00 00:00:00 rn [facility] 2019-11-21 2019-11-21 Fran Rand [facility] 2 [id number] 00:00:00 00:00:00 Olimpia Farmer rn [facility] 2019-11-15 2019-11-15 Outpatient Corey Peters [id number] 00:00:00 00:00:00 Marleny marquez [facility] 2019-11-11 2019-11-11 Outpatient Coery Webster [id number] 00:00:00 00:00:00 rn [facility] 2019-11-06 2019-11-06 Outpatient Corey Webster [id number] 00:00:00 00:00:00 rn [facility] 2019-11-04 2019-11-04 Outpatient Corey Peters [id number] 00:00:00 00:00:00 Marleny marquez [facility] 2019-10-23 2019-10-23 Outpatient Corey Webster [id number] 00:00:00 00:00:00 rn [facility] On[facility] 2019-10-22 2019-10-22 Corey Rand [facility] 2 [id number] 00:00:00 00:00:00 Mrs. marquez [facility] 2019-10-17 2019-10-17 Outpatient Corey Webster [id number] 00:00:00 00:00:00 rn [facility] 2019-08-14 2019-08-14 Outpatient Corey Webster [id number] 00:00:00 00:00:00 rn [facility] 2019-08-13 2019-08-13 Fran Rand [facility] 2 [id number] 00:00:00 00:00:00 Mrs. Marleny marquez [facility] 2019-08-12 2019-08-[facility] [id number]00:00 Marleny marquez [facility] 2019-05-17 2019-05[facility]17 [id number] 00:00:00 Marleny Farmer rn Medical Medical Oncology Oncology Center Center 2019-04-29 2019-04-29 Outpatient [facility] [id number] 00:00:00 00:00:00 rn [facility] On[facility] 2019-04-26 2019-04-26 [id number] 00:00:00 Marleny marquez [facility] 2019-04-23 2019-04-23 [id number]00 00:00:00 Marleny marquez [facility] Oncology [facility]cology [facility] 2019-04-01 2019-04-01 Outpatient [facility] [id number] 00:00:00 00:00:00 rn Medical Medical Oncology Oncology Center [facility] 2019-03-28 2019-03-28 Outpatient [facility] [id number] 00:00:00 00:00:00 rn Medical Medical Oncology Oncology Center [facility] 2019-03-19 2019-03-19 Outpatient [facility] [id number] 00:00:00 00:00:00 rn Medical Medical Oncology Oncology Center Center 2019-03-13 2019-03-13 Outpatient [facility] [id number] 00:00:00 00:00:00 ankur [facility] On[facility] 2019-01-22 2019-01-22 [facility] [id number] 00:00:00 00:00:00 Mervat Farmer rn Medical Medical Oncology Oncology Center Center 2018-12-17 2018-12-17 Outpatient [facility] [id number] 00:00:00 00:00:00 rn Medical Medical Oncology [facility]cology [facility] 2018-12-10 2018-12-10 [facility] [id number] [facility]00 00:00:00 Marleny marquez [facility] 2018-11-30 2018-11-30 [facility] [id number] [facility]:00 00:00:00 Marleny marquez [facility] [place] 2018-11-23 2018-11-23 [facility] [id number] [facility]:00 00:00:00 Marleny Farmer rn [facility] [place] 2018-11-20 2018-11-20 Outpatient Papitocamille [facility] [id number] 00:00:00 00:00:00 Marleny marquez [facility] [place] 2018-11-19 2018-11-19 Outpatient Fran [facility] [id number] 00:00:00 00:00:00 Marleny marqeuz [facility] [place] 2018-11-09 2018-11-09 Outpatient [facility] [id number] 00:00:00 00:00:00 rn [facility] [place] 2018-10-29 2018-10-29 Outpatient Anamaria Tripp [facility] [id number] 13:30:00 13:30:00 Children???s [id number] and [id number] Multispecial 1E6 ty Clini 2018-10-25 2018-10-25 Outpatient [facility] [id number] 00:00:00 00:00:00 rn [facility] [place] 2018-10-24 2018-10-24 Outpatient [facility] [id number] 00:00:00 00:00:00 rn [facility] [place] 2018-10-23 2018-10-23 [id number] 00:00:00 00:00:00 Imelda Farmer rn [facility] [place] 2018-10-18 2018-10-18 Outpatient Fran [facility] [id number] 00:00:00 00:00:00 Marleny marquez [facility] [place] 2018-10-12 2018-10-12 Outpatient [facility] [id number] 00:00:00 00:00:00 rn [facility] [place] 2018-09-28 2018-09-28 Outpatient [facility] [id number] 00:00:00 00:00:00 rn [facility] [place] 2018-09-10 2018-09-10 Outpatient [facility] [id number] 00:00:00 00:00:00 rn [facility] [place] 2018-09-07 2018-09-07 [place] [facility] [place] [facility] [id number] 00:00:00 00:00:00 rn [facility] [place] 2018-09-04 2018-09-04 Outpatient Corey Peters [facility] [id number] 00:00:00 00:00:00 Marleny marquez [facility] [place] 2018-08-10 2018-08-10 Outpatient Corey [facility] [id number] 00:00:00 00:00:00 rn [facility] [place] 2018-07-24 2018-07-24 Outpatient [facility] [id number] 00:00:00 00:00:00 rn [facility] [place] 2018-07-23 2018-07-23 Outpatient [facility] [id number] 00:00:00 00:00:00 rn [facility] [place] 2018-07-19 2018-07-19 DarioFran kennedy [facility] 2 [id number] 00:00:00 00:00:00 Marleny marquez Medical Medical [facility] Oncology [facility]cology [facility] [place] 2018-07-12 2018-07-12 Outpatient Corey Peters [facility] [id number] 00:00:00 00:00:00 Marleny marquez [facility] [place] 2018-07-10 2018-07-10 Shakila [facility] n [id number] 00:00:00 00:00:00 rn [facility] [place] 2018-07-05 2018-07-05 Outpatient Corey [facility] [id number] 00:00:00 00:00:00 rn [facility] [place] 2018-06-29 2018-06-29 [facility] [id number]:00 00:00:00 rn [facility] [place] 2018-06-28 2018-06-28 Keyona Corey Peters [facility] 2 [id number] 00:00:00 00:00:00 Marleny marquez Medical Medical [facility] Oncology [facility]cology [facility] [place] 2018-06-25 2018-06-25 Outpatient Corey Peters [facility] [id number] 00:00:00 00:00:00 Marleny marquez [facility] On[facility] [place] 2018-06-21 2018-06-21 Outpatient Corey Peters [facility] [id number] 00:00:00 00:00:00 Marleny marquez [facility] On[facility] [place] 2018-06-16 2018-06-16 Outpatient [facility] [id number] 00:00:00 00:00:00 rn [facility] On[facility] [place] 2018-06-15 2018-06-15 Outpatient Asaad [facility] [id number] 00:00:00 00:00:00 Marleny rn [facility] [place] 2018-06-14 2018-06-14 Outpatient Asaad [facility] [id number] 00:00:00 00:00:00 Marleny rn [facility] [place] 2018-06-07 2018-06-07 Outpatient Asaad [facility] [id number] 00:00:00 00:00:00 Marleny rn [facility] [place] 2018-05-31 2018-05-31 Outpatient Asaad [facility] [id number] 00:00:00 00:00:00 Marleny rn [facility] [place] 2018-05-24 2018-05-[id number]:00:00 Marleny marquez [facility] [place] 2018-05-23 2018-05-23 Outpatient [facility] [id number] 00:00:00 00:00:00 rn [facility] [place] 2018-05-17 2018[facility]05[facility] [facility] [id number] 00:00:00 00:00:00 Marleny marquez [facility] [place] [facility] [place] 2018-05-11 2018-05-11 Outpatient [facility] [id number] 00:00:00 00:00:00 rn [facility] [place] 2018-05-10 2018-05-10 Outpatient Asaad [facility] [id number] 00:00:00 00:00:00 Marleny marquez [facility] [place] 2018-05-03 2018-05-03 [facility] [id number] [facility]:00 00:00:00 Marleny marquez [facility] [place] 2018-04-26 2018-04-26 Outpatient Asaad [facility] [id number] 00:00:00 00:00:00 Marleny marquez [facility] [place] 2018-04-23 2018-04-23 [facility] [id number] [facility]:00 00:00:00 Marleny rn [facility] [place] 2018-04-19 2018-04-19 Outpatient Fran [facility] [id number] 00:00:00 00:00:00 Marleny rn [facility] [place] 2018-04-13 2018-04-13 [facility] [id number] 00:00:00 00:00:00 rn [facility] [place] 2018-04-12 2018-04-12 Outpatient Fran [facility] [id number] 00:00:00 00:00:00 Marleny rn [facility] [place] 2018-04-05 2018-04-05 Fran Rand [facility] 2 [id number] 00:00:00 00:00:00 Mrs. Herreranda rn Medical Medical [facility] [place] 2018-03-30 2018-03-30 Outpatient Fran [facility] [id number] 00:00:00 00:00:00 Marleny rn [facility] [place] 2018-03-29 2018-03-29 Outpatient Fran [facility] [id number] 00:00:00 00:00:00 Marleny rn [facility] [place] 2018-03-22 2018-03-22 Outpatient Fran [facility] [id number] 00:00:00 00:00:00 Marleny rn [facility] [place] 2018-03-15 2018-03-15 Fran Rand [facility] 2 [id number] 00:00:00 00:00:00 Mrs. Farmer rn [facility] [place] 2018-03-08 2018-03-08 Outpatient Fran [facility] [id number] 00:00:00 00:00:00 Marleny rn [facility] [place] 2018-03-07 2018-03-07 [facility] [place] [facility] [id number] 00:00:00 00:00:00 rn [facility] [place] 2018-03-01 2018-03-01 Outpatient Fran [facility] [id number] 00:00:00 00:00:00 Marleny rn [facility] [place] 2018-02-27 2018-02-27 Outpatient Fran [facility] [id number] 00:00:00 00:00:00 Marleny marquez [facility] [place] 2018-02-22 2018-02-22 [facility] [id number]:00 00:00:00 Rhoda Farmer rn [facility] [place] 2018-02-19 2018-02-19 [facility] [id number] 00:00:00 00:00:00 [facility] 0107 MD Minerva: [facility] [address] [place] [id number], Ph. 2018-02-15 2018-02-15 [facility] [id number] [facility]:00:00 00:00:00 Marleny rn [facility] [place] 2018-02-13 2018-02-13 Outpatient [facility] [id number] 00:00:00 00:00:00 rn [facility] [place] 2018-02-08 2018-02-08 [facility] [id number] 00:00:00 00:00:00 Marleny marquez [facility] [place] 2018-02-01 2018-02-01 [facility] [id number] [facility]:00:00 00:00:00 Marleny marquez [facility] [place] 2018-01-25 2018-01-25 [facility] [id number] 00:00:00 00:00:00 Marleny rn [facility] [place] 2018-01-22 2018-01-22 [facility] [id number] 00:00:00 00:00:00 Marleny marquez [facility] [place] 2018-01-19 2018-01-19 Outpatient [facility] [id number] 00:00:00 00:00:00 rn [facility] [place] 2018-01-18 2018-01-18 [facility] [id number] 00:00:00 00:00:00 Ba Surgical Surgical 1206 Brandon Lopez PA-C: [address] [place] [id number], Ph. 2018-01-18 2018-01-18 Outpatient [facility] [id number] 00:00:00 00:00:00 rn [facility] [place] 2018-01-16 2018-01-16 Outpatient [facility] [id number] 00:00:00 00:00:00 rn [facility] [place] 2018-01-15 2018-01-15 Outpatient [facility] [id number] 00:00:00 00:00:00 rn [facility] [place] 2018-01-12 2018-01-12 Dr. Fran Peters, [facility] [id number] 00:00:00 00:00:00 Marleny Farmer rn Medical Medical Oncology Oncology [facility] 2018-01-11 2018-01-11 Outpatient [facility] [id number] 00:00:00 00:00:00 rn Medical Medical Oncology Oncology [facility] 2017-12-19 2017-12-19 [facility] [id number] 00:00:00 00:00:00 Ba Surgical Surgical 1106 [facility] PA-C: [address] [place] [phone], Ph. 2017-12-19 2017-12-19 Outpatient [facility] [id number] 00:00:00 00:00:00 rn [facility] [place] 2017-12-06 2017-12-06 Outpatient [facility] [id number] 00:00:00 00:00:00 rn Medical Medical Oncology Oncology [facility] 2017-11-28 2017-11-28 [facility] [id number] 00:00:00 00:00:00 [facility] 1016 [facility] PA-C: [address] [place] [phone], Ph. 2017-11-24 2017-11-24 Outpatient [facility] [id number] 00:00:00 00:00:00 rn [facility] [place] 2017-11-23 2017-11-23 Outpatient [facility] [id number] 00:00:00 00:00:00 rn [facility] [place] 2017-11-13 2017-11-13 Outpatient [facility] [id number] 00:00:00 00:00:00 rn [facility] [place] 2017-10-25 2017-10-25 [facility] [id number] 09:55:34 10:04:30 [facility] 2017-10-25 2017-10-25 [facility] [id number] 09:53:18 09:53:18 [facility] 2017-10-23 2017-10-23 Outpatient [facility] [id number] 00:00:00 00:00:00 rn [facility] [place] 2017-10-11 2017-10-11 Outpatient [facility] [id number] 00:00:00 00:00:00 rn [facility] [place] 2017-10-06 2017-10-[address] [facility] [id number] 13:23:27 13:23:27 Visit [facility] 2016-10-11 2016-10-11 [facility] [id number] 10:53:49 10:53:49 [facility] 2016-02-10 2016-02-[address] [facility] [id number] 14:37:53 14:37:53 Visit [facility] 2016-01-12 2016-01-[address] [facility] [id number] 15:17:30 15:17:30 Visit [facility] 2016-01-04 2016-01-[address] [facility] [id number] 15:23:35 15:23:35 Encounter [facility] 2015-01-07 2015-01-07 Outpatient [facility] [id number] 00:00:00 00:00:00 rn [facility] [place] 2014-06-26 2014-06-[address] [facility] [id number] 08:16:31 08:16:31 Visit [facility] 2014-06-13 2014-06-[address] [facility] [id number] 14:10:47 14:10:47 Visit [facility] 2013-01-17 2013-01-[address] [facility] [id number] 09:00:27 09:00:27 Visit [facility] 2012-11-16 2012-11-[address] [facility] [id number] 08:35:42 08:35:42 Visit [facility] 2012-01-02 2012-01-[address] [facility] [id number] 15:47:45 15:47:45 Visit [facility] 2011-12-12 2011-12-[address] [facility] [id number] 16:36:13 16:36:13 Visit [facility] 2011-10-19 2011-10-[address] [facility] [id number] 14:03:47 14:03:47 Visit [facility] 2011-10-13 2011-10-[address] [facility] [id number] 08:56:01 08:56:01 Visit [facility] 2011-10-04 2011-10-[address] [facility] [id number] 09:29:30 09:29:30 Visit [facility] 2011-09-29 2011-09-[address] [facility] [id number] 10:15:06 10:15:06 Visit [facility] 2008-11-21 2008-11-[address] [facility] [id number] 16:43:05 16:43:05 [facility] 2008-10-28 2008-10-[address] [facility] [id number] 14:35:27 14:35:27 Visit [facility] 2008-10-02 2008-10-[address] [facility] [id number] 09:32:04 09:32:04 Trials [facility] (Non[place]) 2008-09-01 2008-09-[address] [facility] [id number] 10:32:08 10:32:08 Visit [facility] 2008-05-21 2008-05-[address] [facility] [id number] 12:00:40 12:00:40 Encounter [facility] 2008-05-01 2008-05-[address] [facility] [id number] 14:31:00 14:31:00 Visit [facility] 2008-04-07 2008-04-07 Post-Op [facility] [id number] 11:02:12 11:02:12 [facility] 2008-03-27 2008-03-[address] [facility] [id number] 16:45:17 16:45:17 Encounter [facility] 2007-09-03 2007-09-03 [facility] [id number] 13:56:38 13:56:38 Summary [facility] 2007-08-15 2007-08-15 [facility] [id number] 12:03:53 12:03:53 Summary [facility] 2003-07-09 2003-07-09 [facility] [id number] 12:30:47 12:30:47 Encounter [facility] 2003-05-21 2003-05-[address] [facility] [id number] 15:22:16 15:22:16 Visit [facility] 2003-03-10 2003-03-10 [facility] [id number] 12:28:33 12:28:33 Addendum [facility] 2003-02-03 2003-02-03 [facility] [id number] 10:42:27 10:42:27 Summary [facility] Family History Family Member Diagnosis Comments Start Date Stop Date Unspecified Asthma Daughter Unspecified DIABETES MELLITUS, NOS Maternal Grandmother, Mother Unspecified Fibrocystic Disease Of FAMILY HISTORY OF Breast BREAST DISEASE - FAMILY MEMBERS NOT LISTED Unspecified HYPERTENSION Maternal Grandmother, Mother Payers Payer Name Policy Type Policy Number Effective Date Expiration D Critical access hospital OT Health Plan [facility] Retired OT [place] Retired OT Plan of Treatment Planned Activity Planned Date Details Comments Future Scheduled Test [code = ] Future Scheduled Test [code = ] Future Scheduled Test [code = ] Future Scheduled Test [code = ] Future Scheduled Test [code = ] Future Scheduled Test [code = ] Future Scheduled Test [code = ] Future Scheduled Test [code = ] Social History Social Habit Start Date Stop Date Comments Tobacco Use No Drug Use Non Drinker/No Alcohol Use Sexual Activity Non Smoker/No Tobacco Use Smoking Status Start Date Stop Date Never 2019-11-21 00:00:00 Social History Observation Description Sex Female Vital Signs Vital Name Observation Time Observation Value Comments Height 2018-02-19 00:00:00 63 [in_i] BP Diastolic 2018-01-18 00:00:00 76 mm[Hg] Height 2018-01-18 00:00:00 63 [in_i] BMI (Body Mass Index) 2018-01-18 00:00:00 30.5 kg/m2 BP Systolic 2018-01-18 00:00:00 122 mm[Hg] Body Weight 2018-01-18 00:00:00 172 [lb_av] BP Diastolic 2017-12-19 00:00:00 73 mm[Hg] Height 2017-12-19 00:00:00 63 [in_i] BMI (Body Mass Index) 2017-12-19 00:00:00 30.5 kg/m2 BP Systolic 2017-12-19 00:00:00 127 mm[Hg] Body Weight 2017-12-19 00:00:00 172 [lb_av] BP Systolic 2017-10-06 16:20:20 110 mm[Hg] Patient Posi tion: Sitting; Cuff Location: Left A rm; Cuff Size: Stand steven BP Diastolic 2017-10-06 16:20:20 70 mm[Hg] Patient Posi tion: Sitting; Cuff Location: Left A rm; Cuff Size: Stand steven Weight 2017-10-06 16:20:20 178 [lb_av] Height 2017-10-06 16:20:20 63 [in_us] Body Mass Index Calculated 2017-10-06 16:20:20 31.53 kg/m2 BP Systolic 2016-02-10 14:38:36 118 mm[Hg] Patient Posi tion: Sitting; Cuff Location: Left A rm; Cuff Size: Stand steven BP Diastolic 2016-02-10 14:38:36 80 mm[Hg] Patient Posi tion: Sitting; Cuff Location: Left A rm; Cuff Size: Stand steven Weight 2016-02-10 14:38:36 190 [lb_av] Height 2016-02-10 14:38:36 63 [in_us] Body Mass Index Calculated 2016-02-10 14:38:36 33.66 kg/m2 BP Systolic 2016-01-12 15:17:50 122 mm[Hg] Patient Posi tion: Sitting; Cuff Location: Left A rm; Cuff Size: Stand steven BP Diastolic 2016-01-12 15:17:50 80 mm[Hg] Patient Posi tion: Sitting; Cuff Location: Left A rm; Cuff Size: Stand steven Weight 2016-01-12 15:17:50 193 [lb_av] Height 2016-01-12 15:17:50 63 [in_us] Body Mass Index Calculated 2016-01-12 15:17:50 34.19 kg/m2 BP Systolic 2014-06-26 10:44:00 130 mm[Hg] BP Diastolic 2014-06-26 10:44:00 76 mm[Hg] Weight 2014-06-26 10:44:00 191 [lb_av] Height 2014-06-26 10:44:00 63 [in_us] Body Mass Index Calculated 2014-06-26 10:44:00 33.83 kg/m2 BP Systolic 2014-06-13 14:10:55 126 mm[Hg] Patient Posi tion: Sitting; Cuff Location: Left A rm; Cuff Size: Stand steven BP Diastolic 2014-06-13 14:10:55 80 mm[Hg] Patient Posi tion: Sitting; Cuff Location: Left A rm; Cuff Size: Stand steven Weight 2014-06-13 14:10:55 192 [lb_av] Height 2014-06-13 14:10:55 63 [in_us] Body Mass Index Calculated 2014-06-13 14:10:55 34.01 kg/m2 BP Systolic 2013-01-17 09:01:11 110 mm[Hg] BP Diastolic 2013-01-17 09:01:11 60 mm[Hg] Weight 2013-01-17 09:01:11 195 [lb_av] Height 2013-01-17 09:01:11 63 [in_us] Body Mass Index Calculated 2013-01-17 09:01:11 34.54 kg/m2 BP Systolic 2012-11-16 08:36:29 118 mm[Hg] Patient Posi tion: Sitting; Cuff Location: Left A rm; Cuff Size: Stand steven BP Diastolic 2012-11-16 08:36:29 70 mm[Hg] Patient Posi tion: Sitting; Cuff Location: Left A rm; Cuff Size: Stand steven Weight 2012-11-16 08:36:29 186 [lb_av] Height 2012-11-16 08:36:29 63 [in_us] Body Mass Index Calculated 2012-11-16 08:36:29 32.95 kg/m2 BP Systolic 2012-01-02 16:05:13 118 mm[Hg] Patient Posi tion: Sitting; Cuff Location: Left A rm; Cuff Size: Stand steven BP Diastolic 2012-01-02 16:05:13 68 mm[Hg] Patient Posi tion: Sitting; Cuff Location: Left A rm; Cuff Size: Stand steven Weight 2012-01-02 16:05:13 194 [lb_av] Height 2012-01-02 16:05:13 63 [in_us] Body Mass Index Calculated 2012-01-02 16:05:13 34.37 kg/m2 BP Systolic 2011-10-19 14:04:48 118 mm[Hg] Patient Posi tion: Sitting; Cuff Location: Left A rm; Cuff Size: Stand steven BP Diastolic 2011-10-19 14:04:48 76 mm[Hg] Patient Posi tion: Sitting; Cuff Location: Left A rm; Cuff Size: Stand steven Weight 2011-10-19 14:04:48 187 [lb_av] Height 2011-10-19 14:04:48 63 [in_us] Body Mass Index Calculated 2011-10-19 14:04:48 33.13 kg/m2 BP Systolic 2011-10-13 09:00:47 122 mm[Hg] Patient Posi tion: Sitting; Cuff Location: Left A rm; Cuff Size: Stand steven BP Diastolic 2011-10-13 09:00:47 80 mm[Hg] Patient Posi tion: Sitting; Cuff Location: Left A rm; Cuff Size: Stand steven Weight 2011-10-13 09:00:47 188 [lb_av] Height 2011-10-13 09:00:47 63 [in_us] Body Mass Index Calculated 2011-10-13 09:00:47 33.3 kg/m2 BP Systolic 2011-10-04 09:34:27 120 mm[Hg] Patient Posi tion: Sitting; Cuff Location: Left A rm; Cuff Size: Stand steven BP Diastolic 2011-10-04 09:34:27 80 mm[Hg] Patient Posi tion: Sitting; Cuff Location: Left A rm; Cuff Size: Stand steven Weight 2011-10-04 09:34:27 188 [lb_av] Height 2011-10-04 09:34:27 63 [in_us] Body Mass Index Calculated 2011-10-04 09:34:27 33.3 kg/m2 Pulse 2011-09-29 10:15:10 72 /min Pattern: Reg ular Respiration Rate 2011-09-29 10:15:10 18 /min Pattern: Un labored BP Systolic 2011-09-29 10:15:10 120 mm[Hg] Patient Posi tion: Sitting BP Diastolic 2011-09-29 10:15:10 80 mm[Hg] Patient Posi tion: Sitting Weight 2011-09-29 10:15:10 188 [lb_av] Height 2011-09-29 10:15:10 63 [in_us] Body Mass Index Calculated 2011-09-29 10:15:10 33.3 kg/m2 BP Systolic 2008-10-28 14:38:03 120 mm[Hg] BP Diastolic 2008-10-28 14:38:03 78 mm[Hg] Weight 2008-10-28 14:38:03 200 [lb_av] Height 2008-10-28 14:38:03 63 [in_us] Body Mass Index Calculated 2008-10-28 14:38:03 35.43 kg/m2 Temperature 2008-09-01 10:39:10 97 [degF] BP Systolic 2008-09-01 10:39:10 120 mm[Hg] BP Diastolic 2008-09-01 10:39:10 68 mm[Hg] Weight 2008-09-01 10:39:10 212 [lb_av] Height 2008-09-01 10:39:10 63 [in_us] Body Mass Index Calculated 2008-09-01 10:39:10 37.55 kg/m2 BP Systolic 2008-05-01 14:34:00 122 mm[Hg] Patient Posi tion: Sitting; Cuff Location: Undefi mallory; Cuff Size: Undef ined BP Diastolic 2008-05-01 14:34:00 80 mm[Hg] Patient Posi tion: Sitting; Cuff Location: Undefi mallory; Cuff Size: Undef ined Weight 2008-05-01 14:34:00 210 [lb_av] Height 2008-05-01 14:34:00 63 [in_us] Body Mass Index Calculated 2008-05-01 14:34:00 37.2 kg/m2 Head Circumference 2008-05-01 14:34:00 0.00 cm Temperature 2003-05-21 15:24:00 97.6 [degF] Method: Unde fined BP Systolic 2003-05-21 15:24:00 120 mm[Hg] Patient Posi tion: Sitting; Cuff Location: Undefi mallory; Cuff Size: Undef ined BP Diastolic 2003-05-21 15:24:00 68 mm[Hg] Patient Posi tion: Sitting; Cuff Location: Undefi mallory; Cuff Size: Undef ined Weight 2003-05-21 15:24:00 202 [lb_av] Height 2003-05-21 15:24:00 63 [in_us] Body Mass Index Calculated 2003-05-21 15:24:00 35.78 kg/m2 Head Circumference 2003-05-21 15:24:00 0.00 cm BMI 2019-11-21 16:13:58 36.8600 BP graff 2019-11-21 16:13:58 97.0000 mm[Hg] Bdy height 2019-11-21 16:13:58 62.5000 [in_i] Heart rate 2019-11-21 16:13:58 111.0000 /min Resp rate 2019-11-21 16:13:58 18.0000 /min BP sys 2019-11-21 16:13:58 136.0000 mm[Hg] Body temperature 2019-11-21 16:13:58 98.1000 [degF] Weight 2019-11-21 16:13:58 204.8000 [lb_av] Heart rate 2019-10-22 10:44:42 102.0000 /min Resp rate 2019-10-22 10:44:42 16.0000 /min BP sys 2019-10-22 10:44:42 138.0000 mm[Hg] Weight 2019-10-22 10:44:42 204.4000 [lb_av] BMI 2019-10-22 10:44:42 36.7900 BP graff 2019-10-22 10:44:42 91.0000 mm[Hg] Bdy height 2019-10-22 10:44:42 62.5000 [in_i] BMI 2019-08-13 13:45:46 35.7100 BP graff 2019-08-13 13:45:46 80.0000 mm[Hg] Bdy height 2019-08-13 13:45:46 62.5000 [in_i] Heart rate 2019-08-13 13:45:46 87.0000 /min Resp rate 2019-08-13 13:45:46 16.0000 /min BP sys 2019-08-13 13:45:46 122.0000 mm[Hg] Body temperature 2019-08-13 13:45:46 98.0000 [degF] Weight 2019-08-13 13:45:46 198.4000 [lb_av] BMI 2019-01-22 13:50:19 32.9000 BP graff 2019-01-22 13:50:19 85.0000 mm[Hg] Bdy height 2019-01-22 13:50:19 62.5000 [in_i] Heart rate 2019-01-22 13:50:19 98.0000 /min Resp rate 2019-01-22 13:50:19 17.0000 /min BP sys 2019-01-22 13:50:19 140.0000 mm[Hg] Body temperature 2019-01-22 13:50:19 98.5000 [degF] Weight 2019-01-22 13:50:19 182.8000 [lb_av] BMI 2018-12-17 15:50:26 32.4700 BP graff 2018-12-17 15:50:26 79.0000 mm[Hg] Bdy height 2018-12-17 15:50:26 62.5000 [in_i] SaO2% BldA PulseOx 2018-12-17 15:50:26 99.0000 % Heart rate 2018-12-17 15:50:26 97.0000 /min Resp rate 2018-12-17 15:50:26 16.0000 /min BP sys 2018-12-17 15:50:26 102.0000 mm[Hg] Body temperature 2018-12-17 15:50:26 98.1000 [degF] Weight 2018-12-17 15:50:26 180.4000 [lb_av] BMI 2018-12-10 09:29:43 32.0400 BP graff 2018-12-10 09:29:43 71.0000 mm[Hg] Bdy height 2018-12-10 09:29:43 62.5000 [in_i] SaO2% BldA PulseOx 2018-12-10 09:29:43 98.0000 % Heart rate 2018-12-10 09:29:43 84.0000 /min Resp rate 2018-12-10 09:29:43 16.0000 /min BP sys 2018-12-10 09:29:43 116.0000 mm[Hg] Body temperature 2018-12-10 09:29:43 97.5000 [degF] Weight 2018-12-10 09:29:43 178.0000 [lb_av] BMI 2018-11-23 16:13:40 33.0100 BP graff 2018-11-23 16:13:40 68.0000 mm[Hg] Bdy height 2018-11-23 16:13:40 62.5000 [in_i] SaO2% BldA PulseOx 2018-11-23 16:13:40 99.0000 % Heart rate 2018-11-23 16:13:40 94.0000 /min Resp rate 2018-11-23 16:13:40 18.0000 /min BP sys 2018-11-23 16:13:40 127.0000 mm[Hg] Body temperature 2018-11-23 16:13:40 98.0000 [degF] Weight 2018-11-23 16:13:40 183.4000 [lb_av] BMI 2018-10-23 13:29:56 33.3700 BP graff 2018-10-23 13:29:56 76.0000 mm[Hg] Bdy height 2018-10-23 13:29:56 62.5000 [in_i] SaO2% BldA PulseOx 2018-10-23 13:29:56 99.0000 % Heart rate 2018-10-23 13:29:56 88.0000 /min Resp rate 2018-10-23 13:29:56 17.0000 /min BP sys 2018-10-23 13:29:56 123.0000 mm[Hg] Body temperature 2018-10-23 13:29:56 97.2000 [degF] Weight 2018-10-23 13:29:56 185.4000 [lb_av] BMI 2018-07-19 12:12:17 35.1700 BP graff 2018-07-19 12:12:17 81.0000 mm[Hg] Bdy height 2018-07-19 12:12:17 62.5000 [in_i] Heart rate 2018-07-19 12:12:17 86.0000 /min Resp rate 2018-07-19 12:12:17 16.0000 /min BP sys 2018-07-19 12:12:17 134.0000 mm[Hg] Body temperature 2018-07-19 12:12:17 98.2000 [degF] Weight 2018-07-19 12:12:17 195.4000 [lb_av] BMI 2018-07-10 13:35:41 35.7100 BP graff 2018-07-10 13:35:41 73.0000 mm[Hg] Bdy height 2018-07-10 13:35:41 62.5000 [in_i] SaO2% BldA PulseOx 2018-07-10 13:35:41 96.0000 % Heart rate 2018-07-10 13:35:41 90.0000 /min Resp rate 2018-07-10 13:35:41 18.0000 /min BP sys 2018-07-10 13:35:41 116.0000 mm[Hg] Body temperature 2018-07-10 13:35:41 97.8000 [degF] Weight 2018-07-10 13:35:41 198.4000 [lb_av] BMI 2018-06-28 11:58:07 35.2800 BP graff 2018-06-28 11:58:07 80.0000 mm[Hg] Bdy height 2018-06-28 11:58:07 62.5000 [in_i] SaO2% BldA PulseOx 2018-06-28 11:58:07 98.0000 % Heart rate 2018-06-28 11:58:07 90.0000 /min Resp rate 2018-06-28 11:58:07 16.0000 /min BP sys 2018-06-28 11:58:07 123.0000 mm[Hg] Body temperature 2018-06-28 11:58:07 98.3000 [degF] Weight 2018-06-28 11:58:07 196.0000 [lb_av] BMI 2018-06-07 12:07:37 34.3800 BP graff 2018-06-07 12:07:37 58.0000 mm[Hg] Bdy height 2018-06-07 12:07:37 62.5000 [in_i] SaO2% BldA PulseOx 2018-06-07 12:07:37 99.0000 % Heart rate 2018-06-07 12:07:37 78.0000 /min Resp rate 2018-06-07 12:07:37 16.0000 /min BP sys 2018-06-07 12:07:37 123.0000 mm[Hg] Body temperature 2018-06-07 12:07:37 98.3000 [degF] Weight 2018-06-07 12:07:37 191.0000 [lb_av] BMI 2018-05-17 11:59:50 35.1000 BP graff 2018-05-17 11:59:50 72.0000 mm[Hg] Bdy height 2018-05-17 11:59:50 62.5000 [in_i] Heart rate 2018-05-17 11:59:50 91.0000 /min Resp rate 2018-05-17 11:59:50 16.0000 /min BP sys 2018-05-17 11:59:50 133.0000 mm[Hg] Body temperature 2018-05-17 11:59:50 99.0000 [degF] Weight 2018-05-17 11:59:50 195.0000 [lb_av] BMI 2018-04-26 13:29:34 35.0300 BP graff 2018-04-26 13:29:34 74.0000 mm[Hg] Bdy height 2018-04-26 13:29:34 62.5000 [in_i] SaO2% BldA PulseOx 2018-04-26 13:29:34 97.0000 % Heart rate 2018-04-26 13:29:34 90.0000 /min Resp rate 2018-04-26 13:29:34 20.0000 /min BP sys 2018-04-26 13:29:34 117.0000 mm[Hg] Body temperature 2018-04-26 13:29:34 97.8000 [degF] Weight 2018-04-26 13:29:34 194.6000 [lb_av] BP graff 2018-04-05 15:50:00 83.0000 mm[Hg] Bdy height 2018-04-05 15:50:00 62.5000 [in_i] SaO2% BldA PulseOx 2018-04-05 15:50:00 99.0000 % Heart rate 2018-04-05 15:50:00 90.0000 /min Resp rate 2018-04-05 15:50:00 24.0000 /min BP sys 2018-04-05 15:50:00 141.0000 mm[Hg] BMI 2018-04-05 12:04:35 33.3300 BP graff 2018-04-05 12:04:35 85.0000 mm[Hg] Bdy height 2018-04-05 12:04:35 62.5000 [in_i] Heart rate 2018-04-05 12:04:35 91.0000 /min Resp rate 2018-04-05 12:04:35 16.0000 /min BP sys 2018-04-05 12:04:35 129.0000 mm[Hg] Body temperature 2018-04-05 12:04:35 98.4000 [degF] Weight 2018-04-05 12:04:35 185.2000 [lb_av] BMI 2018-03-15 10:58:09 33.5500 BP graff 2018-03-15 10:58:09 79.0000 mm[Hg] Bdy height 2018-03-15 10:58:09 62.5000 [in_i] Heart rate 2018-03-15 10:58:09 80.0000 /min Resp rate 2018-03-15 10:58:09 16.0000 /min BP sys 2018-03-15 10:58:09 124.0000 mm[Hg] Body temperature 2018-03-15 10:58:09 97.3000 [degF] Weight 2018-03-15 10:58:09 186.4000 [lb_av] BMI 2018-02-22 11:58:46 33.5900 BP graff 2018-02-22 11:58:46 87.0000 mm[Hg] Bdy height 2018-02-22 11:58:46 62.5000 [in_i] Heart rate 2018-02-22 11:58:46 76.0000 /min Resp rate 2018-02-22 11:58:46 16.0000 /min BP sys 2018-02-22 11:58:46 145.0000 mm[Hg] Body temperature 2018-02-22 11:58:46 98.4000 [degF] Weight 2018-02-22 11:58:46 186.6000 [lb_av] BMI 2018-01-25 09:58:26 32.4700 BP graff 2018-01-25 09:58:26 80.0000 mm[Hg] Bdy height 2018-01-25 09:58:26 62.5000 [in_i] Heart rate 2018-01-25 09:58:26 92.0000 /min Resp rate 2018-01-25 09:58:26 20.0000 /min BP sys 2018-01-25 09:58:26 118.0000 mm[Hg] Body temperature 2018-01-25 09:58:26 98.6000 [degF] Weight 2018-01-25 09:58:26 180.4000 [lb_av] BMI 2018-01-12 13:58:57 31.0700 BP graff 2018-01-12 13:58:57 70.0000 mm[Hg] Bdy height 2018-01-12 13:58:57 62.5000 [in_i] Heart rate 2018-01-12 13:58:57 88.0000 /min Resp rate 2018-01-12 13:58:57 18.0000 /min BP sys 2018-01-12 13:58:57 114.0000 mm[Hg] Body temperature 2018-01-12 13:58:57 97.8000 [degF] Weight 2018-01-12 13:58:57 172.6000 [lb_av] Hospital Discharge Instructions 1. Malignant tumor of colon Discussion Note: None recorded. Patient educational handouts: No information available.ROUTINE GYNECOLOGIC... : Follow up in 1 year ROUTINE GYNECOLOGIC... : Breast self-exam: textROUTINE GYNECOLOGIC... : Follow up in 1 year ROUTINE GYNECOLOGIC... : Breast self-exam: text
== END 2019-12-25 16:15 | disposition home or self-care (01) ==
LOC: RAD 09:25
PROVIDERS: ATTEND Surgery
DX: C78.7 Secondary malignant neoplasm of liver and intrahepatic bile duct (principal); R16.0 Hepatomegaly, not elsewhere classified
CPT/HCPCS: 36415; 84520; 82565; 85027; 85610; 85730; 88342 ×2; 88341 ×2; 88305 ×2; 77012; 47000; J2250; J3010; J2405